=== PATIENT | male | born 1945 | race Caucasian/White ===

== ENCOUNTER 2018-07-03 22:41 | Emergency (ER) | payer MEDICARE, OTHER ==
[~2018-07-03] VITALS: Ht 160 cm; Wt 74.6 kg
[~2018-07-03 22:41] MED LIST: CEPH-443 PO; DOXA4TAB PO; LEVO150T7 PO; POLY10DR19 RIGHT EYE; [UNRECOGNIZED DRUG - CODE] PO; [UNRECOGNIZED DRUG - CODE] PO
[2018-07-03 22:49] VITALS: Ht 160 cm; Wt 74.6 kg
[2018-07-04] MEDS ORDERED: morphine 4 MG/ML VIAL IV STA (01:02)
[2018-07-04] MEDS ORDERED: ONDANSETRON 4 MG INJ IV STA (01:02)
[2018-07-04] MEDS ORDERED: ONDA4TAB14 PO (02:21)
--- NOTE | 2018-07-04 02:22 | ERD ---
ER Documentation Chief Complaint Chief Complaint gen body aches & burning sensation all over; hx seizures HPI Patient is a 72-year-old male with seizures and high cholesterol who presents with abdominal pain. He has had 2 days of abdominal pain and yesterday started with back pain. He went to the [facility] emergency department yesterday. He had a CT scan done which showed no significant surgical process. Per day the patient felt worse so came to the ER. He was having chest burning as well. He has had decreased intake by mouth. Upon review of old medical records this is the patient's fifth visit to the ER since 2010. Review of the emergency department information exchange system shows visits to 3 separate [facility] departments. He does have a primary doctor. ROS All systems reviewed and are negative except as per history of present illness. Medications Home Meds Active Scripts Ondansetron (Ondansetron Odt) 4 Mg Tab.rapdis, 4 MG PO Q6H PRN for NAUSEA AND/OR VOMITING, #10 TAB Prov:REBECCA BRITTON MD 07/04/18 Polymyxin B Sulfate-TMP* (Polymyxin B-TMP Eye Drops*) 10 Ml Drops, 1 DROP RIGHT EYE QID for 7 Days, EA Prov:KATHERINE LEYVA PA-C 01/27/16 Cephalexin* (Keflex*) 500 Mg Capsule, 500 MG PO QID for 7 Days, CAP Prov:KATHERINE LEYVA PA-C 01/27/16 Reported Medications Doxazosin* (CARDURA*) 4 Mg Tablet, 4 MG PO AM 01/09/11 Sulfamethoxazole/Trimethoprim (Smz-Tmp Ds 800-160 Mg Tablet) 1 Tab Tablet, 1 TAB PO AM 01/09/11 Levothyroxine Sodium* (Levothyroxine Sodium*) 150 Mcg Tablet, 150 MCG PO AM 01/09/11 Phenytoin (Phenytoin) 100 Mg/4 Ml Oral.susp, 100 MG PO TID 01/09/11 Allergies Allergies: Coded Allergies: No Known Allergies (Verified Allergy, Unknown, 07/09/13) PMhx/Soc History of Surgery: Yes (PREVIOUS HYDROCELE REPAIR) Anesthesia Reaction: No Hx Neurological Disorder: Yes (SEIZURES) Hx Respiratory Disorders: No Hx Cardiac Disorders: No Hx Psychiatric Problems: No Hx Miscellaneous Medical Probl: Yes (BPH) Hx Alcohol Use: No Hx Substance Use: No Hx Tobacco Use: No Sm[facility] History: diabetes Physical Exam Vitals Vital Signs Date Temp Pulse Resp B/P (MAP) Pulse Ox O2 O2 Flow FiO2 Time Delivery Rate 07/04/18 98.0 66 16 147/76 98 Room Air 02:45 (99) 07/04/18 68 15 138/74 95 Room Air 01:00 (95) 07/03/18 98.6 63 20 135/70 98 22:49 (91) Physical Exam Const: No acute distress Head: Atraumatic Eyes: Normal Conjunctiva ENT: Normal External Ears, Nose and Mouth. Neck: Full range of motion. No meningismus. Resp: Clear to auscultation bilaterally Cardio: Regular rate and rhythm, no murmurs Abd: Soft, diffuse tenderness to palpation without rebound or guarding Skin: No petechiae or rashes Back: No midline or flank tenderness Ext: No cyanosis, or edema Neur: Awake and alert Psych: Normal Mood and Affect Result Diagram: 07/04/18 0110 07/04/18 0110 Results 24 hrs Laboratory Tests Test 07/04/18 01:10 07/04/18 01:15 White Blood Count 7.7 10^3/ul Red Blood Count 4.44 10^6/ul Hemoglobin 14.0 g/dl Hematocrit 38.6 % Mean Corpuscular Volume 86.9 fl Mean Corpuscular Hemoglobin 31.5 pg Mean Corpuscular Hemoglobin Concent 36.3 g/dl Red Cell Distribution Width 11.4 % Platelet Count 161 10^3/UL Mean Platelet Volume 10.6 fl Immature Granulocytes % 0.400 % Neutrophils % 59.3 % Lymphocytes % 29.7 % Monocytes % 9.7 % Eosinophils % 0.6 % Basophils % 0.3 % Nucleated Red Blood Cells % 0.0 /100WBC Immature Granulocytes # 0.030 10^3/ul Neutrophils # 4.6 10^3/ul Lymphocytes # 2.3 10^3/ul Monocytes # 0.8 10^3/ul Eosinophils # 0.1 10^3/ul Basophils # 0.0 10^3/ul Nucleated Red Blood Cells # 0.0 10^3/ul Sodium Level 124 mmol/L Potassium Level 4.0 mmol/L Chloride Level 86 mmol/L Carbon Dioxide Level 23 mmol/L Anion Gap 15 Blood Urea Nitrogen 6 mg/dl Creatinine 0.46 mg/dl Est Glomerular Filtrat Rate mL/min mL/min Glucose Level 104 mg/dl Calcium Level 8.7 mg/dl Total Bilirubin 0.4 mg/dl Direct Bilirubin 0.00 mg/dl Indirect Bilirubin 0.4 mg/dl Aspartate Amino Transf (AST/SGOT) 19 IU/L Alanine Aminotransferase (ALT/SGPT) 23 IU/L Alkaline Phosphatase 73 IU/L Troponin I < 0.012 ng/ml Total Protein 8.1 g/dl Albumin 4.4 g/dl Globulin 3.70 g/dl Albumin/Globulin Ratio 1.18 Lipase 46 U/L Urine Color YELLOW Urine Clarity CLEAR Urine pH 6.0 Urine Specific [place] 1.017 Urine Ketones 2+ mg/dL Urine Nitrite NEGATIVE mg/dL Urine Bilirubin NEGATIVE mg/dL Urine Urobilinogen NEGATIVE mg/dL Urine Leukocyte Esterase NEGATIVE Sammi/ul Urine Microscopic RBC 3 /HPF Urine Microscopic WBC 1 /HPF Urine Hemoglobin 1+ mg/dL Urine Glucose NEGATIVE mg/dL Urine Total Protein NEGATIVE mg/dl Current Medications Medications Dose Sig/Mari Start Time Status Last (Trade) Ordered Route PRN Stop Time Admin Dose Reason Admin Morphine 4 mg ONCE STAT 07/04/18 DC 07/04/18 Sulfate IV 01:02 07/04/18 01:54 (morphine) 01:03 Ondansetron 4 mg ONCE STAT 07/04/18 DC 07/04/18 HCl (Zofran IV 01:02 07/04/18 01:54 Inj) 01:03 Procedures/MDM EKG read by me: Rate/Rhythm: Regular rate and rhythm at a rate of 66 Intervals: Normal Impression: No evidence of ischemia or arrhythmia Ultrasound read by radiology. Patient is a 72-year-old male who presents with abdominal pain. The patient has a history of visits to other emergency departments for abdominal pain as well. Ultrasound showed gallstones and possible acute cholecystitis but his clinical exam does not fit the picture of acute cholecystitis and his white blood cell count is normal. I do not believe the patient has acute cholecystitis I believe he has aortic colic. I doubt pancreatitis, appendicitis, or bowel obstruction. The patient is well-appearing and wanted to eat prior to discharge. The patient was given copies of laboratory studies and imaging test prior to discharge and will be given information for Dr. Kahn from general surgery to follow-up within 24-48 hours. He would likely benefit from elective cholecystectomy. I do not believe he requires admission to the hospital at this time. Departure Diagnosis: Primary Impression: Biliary colic Condition: Fair Patient Instructions: Biliary Colic With Gallstone (Confirmed) Referrals: VAISHNAVI KAHN MD Additional Instructions: Specialist:Usted tiene fernando condicin mdica que requiere que zulay a un especialista dentro de los prximos 1-2 tran.POR FAVOR,CON VINES SEGUIMIENTO DE PRIMARIA PHSICIAN refferal. SI USTED NO TIENE UN MDICO GENERAL Y / O USTED NO PUEDE PAGAR grabiel a un mdico,los siguientes coulter RECURSOS sido suministrado a usted. ES VINES RESPONSABILIDAD PARA SER VISTOS POR EL ESPECIALISTA: REBECCA BRITTON MD Jul 04, 2018 02:22
[2018-07-04 02:45] VITALS: BP 147/76; PULSE 66; RESP 16
[2018-07-05] MEDS ORDERED: GEMF600T4 PO (10:16)
== END 2018-07-04 02:45 | disposition home or self-care (01) ==
LOC: E/R 22:41
DX: K80.50 Calculus of bile duct without cholangitis or cholecystitis without obstruction (principal); R10.9 Unspecified abdominal pain
CPT/HCPCS: 36415; 71045; 76705; 80053; 81001; 83690; 84484; 85025; 93005; 96374; 96375; 99285; J2270; J2405

== ENCOUNTER 2018-07-05 09:03 | Inpatient (IN) | payer MEDICARE, OTHER ==
[~2018-07-05] VITALS: Ht 167.6 cm; Wt 75.5 kg
[~2018-07-05 09:03] MED LIST changes: +ONDA4TAB14 PO
[2018-07-05] MEDS ORDERED: ACETAMINOPHEN 325 MG TAB PO PRN (10:00)
[2018-07-05] MEDS ORDERED: ONDANSETRON 4 MG INJ IV PRN ×2 (10:00→11:00)
[2018-07-05] MEDS ORDERED: ONDANSETRON 4 MG INJ IV STA (10:15)
[2018-07-05] MEDS ORDERED: morphine 4 MG/ML VIAL IV STA (10:15)
[2018-07-05] MEDS ORDERED: GEMF600T8 PO (10:16)
[2018-07-05] MEDS ORDERED: morphine 2 MG INJ IV PRN (11:00)
[2018-07-05] MEDS ORDERED: NACL 0.9% 3 ML SYG IV SCH (11:00)
[2018-07-05 11:10] VITALS: BP 130/62; PULSE 62; RESP 16
[2018-07-05] MEDS: SOD CHLORIDE 0.9% 1,000 ML IV SCH (11:13)
[2018-07-05 11:26] VITALS: Ht 167.6 cm; Wt 75.5 kg
--- NOTE | 2018-07-05 12:05 | HP ---
Date/Time of Note Date/Time of Note DATE: 07/05/18 TIME: 12:05 Assessment/Plan VTE Prophylaxis SCD contraindicated: other Pharmacological prophylaxis: other Lines/Catheters IV [facility]ter Type (from [facility]): Peripheral IV Assessment/Plan Hospital Course 72-year-old male with comorbidities including prostate hypertrophy, hypothyroidism, seizure disorder, and dyslipidemia who came to the emergency room with chief complaint of abdominal pain was found to have evidence of cholelithiasis and hyponatremia who was admitted inpatient setting for further treatment and evaluation. 1. Acute abdominal pain. -Most probably secondary to underlying cholelithiasis -Continue pain control. -Continue n.p.o. except for medications. -General surgery consult has been obtained -Obtain HIDA scan to check for any cholecystitis. -Will hold antimicrobials since the patient is afebrile and does not have any leukocytosis. 2. Symptomatic cholelithiasis -Management as per #1. 3. Hyponatremia. -Less likely primary polydipsia. -Other causes include low dietary fluid intake, hypovolemia, SIADH, etc. -Correct sodium levels gradually. 4. Seizure disorder. -Resume phenytoin. -Dilantin level very low. Will give a loading dose at 15 mg/kg 5. Hypothyroidism. -Will continue Synthroid. 6. Dyslipidemia. -Continue fibrates. Plan: The patient will be admitted to inpatient setting. The patient will be kept n.p.o. except for medications. The patient will be started on DVT prophylaxis . The patient will remain a full code. Activities will be as tolerated. The rest of the patient's management will be based on the clinical course, inputs from consultants, and the results of diagnostic studies. The patient was seen in collaboration with Dr. Montejo. Result Diagram: 07/05/18 1030 07/05/18 1030 Results 24hrs Laboratory Tests Test 07/05/18 10:30 White Blood Count 6.5 Red Blood Count 4.60 L Hemoglobin 14.3 Hematocrit 38.9 L Mean Corpuscular Volume 84.6 Mean Corpuscular Hemoglobin 31.1 Mean Corpuscular Hemoglobin Concent 36.8 Red Cell Distribution Width 11.4 L Platelet Count 168 Mean Platelet Volume 10.9 H Immature Granulocytes % 0.800 H Neutrophils % 64.9 Lymphocytes % 22.2 Monocytes % 11.4 H Eosinophils % 0.5 Basophils % 0.2 Nucleated Red Blood Cells % 0.0 Immature Granulocytes # 0.050 H Neutrophils # 4.2 Lymphocytes # 1.4 Monocytes # 0.7 Eosinophils # 0.0 Basophils # 0.0 Nucleated Red Blood Cells # 0.0 Urine Color YELLOW Urine Clarity CLEAR Urine pH 6.0 Urine Specific [place] 1.015 Urine Ketones 2+ H Urine Nitrite NEGATIVE Urine Bilirubin NEGATIVE Urine Urobilinogen 1+ H Urine Leukocyte Esterase NEGATIVE Urine Microscopic RBC 2 Urine Microscopic WBC 0 Urine Hemoglobin 1+ H Urine Random Sodium 72 Urine Glucose NEGATIVE Urine Total Protein NEGATIVE Sodium Level 122 L Potassium Level 3.8 Chloride Level 85 L Carbon Dioxide Level 22 Anion Gap 15 H Blood Urea Nitrogen 5 L Creatinine 0.48 L Est Glomerular Filtrat Rate mL/min Glucose Level 108 Calcium Level 8.7 Total Bilirubin 0.3 Direct Bilirubin 0.00 Indirect Bilirubin 0.3 Aspartate Amino Transf (AST/SGOT) 32 # Alanine Aminotransferase (ALT/SGPT) 39 Alkaline Phosphatase 78 Troponin I < 0.012 Total Protein 7.9 Albumin 4.3 Globulin 3.60 H Albumin/Globulin Ratio 1.19 Lipase 60 Phenytoin (Dilantin) Level < 3.0 L HPI/ROS Admit Date/Time Admit Date/Time Jul 05, 2018 at 09:55 Hx of Present Illness Reason for admission: Abdominal pain. Consultants 1. Tevin Kahn MD, General surgery. This is a 72-year-old male with comorbidities including dyslipidemia, seizure disorder, hypothyroidism, and prostatic hypertrophy, who came to the emergency room because of abdominal. The patient was seen at [facility] emergency room on 07/03/2018 because of same complaints and was discharged home. The patient returned back this time with epigastric pain with radiation to the back. The patient also verbalized 2 episodes of bilious vomiting. There was no reported fevers. There was no reported diarrhea. In the emergency room, the patient's LFTs were within normal limits. The patient's gallbladder ultrasound that was done on 07/04/2018 was showing mildly distended gallbladder containing multiple stones with sonographic Vital's sign. The patient was treated with IV pain medications and IV antiemetics in the emergency room. ROS Constitutional: poor po Eyes: no complaints ENT: no complaints Respiratory: no complaints Cardiovascular: no complaints Gastrointestinal: pain, nausea, vomiting Genitourinary: no complaints Musculoskeletal: back pain Skin: no complaints Neurologic: no complaints Endocrine: no complaints Lymphatic: no complaints Psychological: no complaints Immunologic: no complaints PMH/Family/Social Past Medical History Medical History: high cholesterol, hypertension, hypothyroid, other (Prostate hypertrophy) Medications Current Medications Ondansetron HCl (Zofran Inj) 4 mg BRIDGE ORDER PRN IV NAUSEA AND/OR VOMITING; Start 07/05/18 at 10:00; Stop 07/06/18 at 09:59 Acetaminophen (Tylenol Tab) 650 mg ER BRIDGE PRN PO MILD PAIN(1-3)OR ELEVATED TEMP; Start 07/05/18 at 10:00; Stop 07/06/18 at 09:59 IV Flush (NS 3 ml) 3 ml PER PROTOCOL IV ; Start 07/05/18 at 11:00 Ondansetron HCl (Zofran Inj) 4 mg Q6H PRN IV NAUSEA AND/OR VOMITING; Start 07/05/18 at 11:00 Acetaminophen/ Hydrocodone Bitart ([employer] (5/325)) 1 tab Q6H PRN PO MODERATE PAIN LEVEL 4-6; Start 07/05/18 at 11:00 Morphine Sulfate (morphine) 2 mg Q4H PRN IV SEVERE PAIN LEVEL 7-10; Start 07/05/18 at 11:00 Sodium Chloride 1,000 ml @ 75 mls/hr [id number] IV Last administered on 07/05/18at 11:13; Admin Dose 75 MLS/HR; Start 07/05/18 at 11:00 Coded Allergies: No Known Allergies (Verified Allergy, Unknown, 07/09/13) Past Surgical History Past Surgical Hx: other (Prostate surgery) Social History Alcohol Use: none Smoking Status: Never smoker Drug Use: none Exam/Review of Systems Vital Signs Vitals Vital Signs Date Temp Pulse Resp B/P (MAP) Pulse Ox O2 O2 Flow FiO2 Time Delivery Rate 07/05/18 98.5 62 16 130/62 96 11:10 (84) 07/05/18 Room Air 10:41 Exam Exam General: Adequately build 72 year-old male lying in bed in no apparent distress. HEENT: Normocephalic, atraumatic. Eyes: Anicteric sclerae, conjunctivae clear. ENT: Nasal septum midline, oral mucosa moist. Neck supple. Respiratory: Bilaterally clear breath sounds. No use of accessory muscles of re spiration. No adventitious breath sounds. Cardiovascular: S1, S2 heard. Regular rate and rhythm. Abdomen: Soft, nontender, and nondistended. Bowel sounds positive in all 4 quadrants. Genitourinary: Deferred. Extremities: No cyanosis, no clubbing, no edema. Peripheral pulses palpable. Neurologic: Cranial nerves II through XII grossly intact. The patient is awake, alert, and oriented. Skin: Normal skin turgor. No skin rashes. Additional Comments CXR IMPRESSION: 1. No radiographic evidence of acute cardiopulmonary disease. No significant interval change. 2. 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 THERESE LEROY NP Jul 05, 2018 12:05
--- NOTE | 2018-07-05 13:11 | ERD ---
ER Documentation Chief Complaint Chief Complaint Complains of back pain x1 week HPI Patient is a 72-year-old male with seizures who presents with abdominal pain and back pain. He said that he could not sleep last night. He had nausea and vomiting as well. He tried Tylenol. He does have a primary doctor. He was seen in the emergency department on July 03 and was diagnosed with biliary colic. He was discharged at that time but has continued to have pain. ROS All systems reviewed and are negative except as per history of present illness. Medications Home Meds Reported Medications Gemfibrozil* (Gemfibrozil*) 600 Mg Tablet, 600 MG PO BID, TAB 07/05/18 Levothyroxine Sodium* (Levothyroxine Sodium*) 150 Mcg Tablet, 150 MCG PO AC BREAKFAST 01/09/11 Phenytoin (Phenytoin) 100 Mg/4 Ml Oral.susp, 100 MG PO TID 01/09/11 Discontinued Reported Medications Doxazosin* (CARDURA*) 4 Mg Tablet, 4 MG PO AM 01/09/11 Sulfamethoxazole/Trimethoprim (Smz-Tmp Ds 800-160 Mg Tablet) 1 Tab Tablet, 1 TAB PO AM 01/09/11 Discontinued Scripts Ondansetron (Ondansetron Odt) 4 Mg Tab.rapdis, 4 MG PO Q6H PRN for NAUSEA AND/OR VOMITING, #10 TAB Prov:REBECCA BRITTON MD 07/04/18 Polymyxin B Sulfate-TMP* (Polymyxin B-TMP Eye Drops*) 10 Ml Drops, 1 DROP RIGHT EYE QID for 7 Days, EA Prov:KATHERINE LEYVA PA-C 01/27/16 Cephalexin* (Keflex*) 500 Mg Capsule, 500 MG PO QID for 7 Days, CAP Prov:KATHERINE LEYVA PA-C 01/27/16 Allergies Allergies: Coded Allergies: No Known Allergies (Verified Allergy, Unknown, 07/09/13) PMhx/Soc History of Surgery: Yes (surgery for prostate 2 years ago) Anesthesia Reaction: No Hx Neurological Disorder: Yes (seizures--last one one year ago) Hx Respiratory Disorders: No Hx Cardiac Disorders: No Hx Psychiatric Problems: No Hx Miscellaneous Medical Probl: No Hx Alcohol Use: No Hx Substance Use: No Hx Tobacco Use: No Smoking Status: Never smoker FmHx Family History: No diabetes Physical Exam Vitals Vital Signs Date Temp Pulse Resp B/P (MAP) Pulse Ox O2 O2 Flow FiO2 Time Delivery Rate 07/05/18 98.8 72 20 148/70 96 09:05 (96) Physical Exam Const: No acute distress Head: Atraumatic Eyes: Normal Conjunctiva ENT: Normal External Ears, Nose and Mouth. Neck: Full range of motion. No meningismus. Resp: Clear to auscultation bilaterally Cardio: Regular rate and rhythm, no murmurs Abd: Soft, epigastric tenderness to palpation without rebound or guarding Skin: No petechiae or rashes Back: No midline or flank tenderness Ext: No cyanosis, or edema Neur: Awake and alert Psych: Normal Mood and Affect Result Diagram: 07/05/18 1030 07/05/18 1030 Procedures/MDM EKG read by me: Rate/Rhythm: Regular rate and rhythm at a normal rate Intervals: Normal Impression: No evidence of ischemia or arrhythmia Chest x-ray read by radiology. Ultrasound of the gallbladder done 2 days ago read by radiology. Patient is a 72-year-old male with seizures who presents with epigastric and back pain. I am concerned for possible acute cholecystitis as patient has had continued pain. The patient will be admitted to the panel team. Dr. Kahn from general surgery is consulted. The patient may require a HIDA scan to determine if this is true cholecystitis or not. LFTs and lipase are basically normal. The patient was given morphine and Zofran for pain. Departure Diagnosis: Primary Impression: Abdominal pain Abdominal location: epigastric Qualified Codes: R10.13 - Epigastric pain Condition: REBECCA Moore MD Jul 05, 2018 13:11
--- NOTE | 2018-07-05 13:18 | CONS ---
Date/Time of Note Date/Time of Note DATE: 07/05/18 TIME: 12:50 Assessment/Plan Assessment/Plan Assessment/Plan 1. Left mid abdominal pain: 2/2 symptomatic cholelithiasis versus other -HIDA scan pending -CT abdomen -Pain management 2. Cholelithiasis: -As above 3.Hyponatremia -Judicious fluid correction 4. Seizure disorder: -Med management 5. High cholesterol -Med management 6. Hypothyroidism: -Med management Thank you. Patient seen and examined in collaboration with Dr. Tevin Kahn. Result Diagram: 07/05/18 1030 07/05/18 1030 Results 24hrs Laboratory Tests Test 07/05/18 10:30 White Blood Count 6.5 Red Blood Count 4.60 L Hemoglobin 14.3 Hematocrit 38.9 L Mean Corpuscular Volume 84.6 Mean Corpuscular Hemoglobin 31.1 Mean Corpuscular Hemoglobin Concent 36.8 Red Cell Distribution Width 11.4 L Platelet Count 168 Mean Platelet Volume 10.9 H Immature Granulocytes % 0.800 H Neutrophils % 64.9 Lymphocytes % 22.2 Monocytes % 11.4 H Eosinophils % 0.5 Basophils % 0.2 Nucleated Red Blood Cells % 0.0 Immature Granulocytes # 0.050 H Neutrophils # 4.2 Lymphocytes # 1.4 Monocytes # 0.7 Eosinophils # 0.0 Basophils # 0.0 Nucleated Red Blood Cells # 0.0 Urine Color YELLOW Urine Clarity CLEAR Urine pH 6.0 Urine Specific [place] 1.015 Urine Ketones 2+ H Urine Nitrite NEGATIVE Urine Bilirubin NEGATIVE Urine Urobilinogen 1+ H Urine Leukocyte Esterase NEGATIVE Urine Microscopic RBC 2 Urine Microscopic WBC 0 Urine Hemoglobin 1+ H Urine Random Creatinine 107.74 Urine Random Sodium 72 Urine Glucose NEGATIVE Urine Total Protein NEGATIVE Sodium Level 122 L Potassium Level 3.8 Chloride Level 85 L Carbon Dioxide Level 22 Anion Gap 15 H Blood Urea Nitrogen 5 L Creatinine 0.48 L Est Glomerular Filtrat Rate mL/min Glucose Level 108 Calcium Level 8.7 Total Bilirubin 0.3 Direct Bilirubin 0.00 Indirect Bilirubin 0.3 Aspartate Amino Transf (AST/SGOT) 32 # Alanine Aminotransferase (ALT/SGPT) 39 Alkaline Phosphatase 78 Troponin I < 0.012 Total Protein 7.9 Albumin 4.3 Globulin 3.60 H Albumin/Globulin Ratio 1.19 Lipase 60 Free Thyroxine 1.36 Phenytoin (Dilantin) Level < 3.0 L Consultation Date/Type/Reason Admit Date/Time Jul 05, 2018 at 09:55 Hx of Present Illness Vernon Mota is a 72-year-old man with past medical history of seizure disorder, hypothyroidism, high cholesterol who presents to the emergency room with complaints of abdominal pain. Abdominal pain is predominantly in the mid left abdomen strong and persistent in nature. He also reports abdominal pain wi th food. Notably, he presented to the ED yesterday with similar complaints. An ultrasound was performed yesterday showing mildly distended gallbladder containing multiple small stones without pericholecystic fluid. He was subsequently sent home with instructions to follow-up with our service as o utpatient. Unfortunately his pain persisted and he returned to the ED for further evaluation. He denies fevers, chills, congested cough chest pain, palpitations, nausea, vomiting, seizures, rash, skin or scleral changes. Laboratory findings were remarkable for hyponatremia. General surgery was asked to evaluate. 12 point review of systems was performed and is negative except for stated in HPI. Past Medical History As above Medications Current Medications Ondansetron HCl (Zofran Inj) 4 mg BRIDGE ORDER PRN IV NAUSEA AND/OR VOMITING; Start 07/05/18 at 10:00; Stop 07/06/18 at 09:59 Acetaminophen (Tylenol Tab) 650 mg ER BRIDGE PRN PO MILD PAIN(1-3)OR ELEVATED TEMP; Start 07/05/18 at 10:00; Stop 07/06/18 at 09:59 IV Flush (NS 3 ml) 3 ml PER PROTOCOL IV ; Start 07/05/18 at 11:00 Ondansetron HCl (Zofran Inj) 4 mg Q6H PRN IV NAUSEA AND/OR VOMITING; Start 07/05/18 at 11:00 Acetaminophen/ Hydrocodone Bitart ([employer] (5/325)) 1 tab Q6H PRN PO MODERATE PAIN LEVEL 4-6; Start 07/05/18 at 11:00 Morphine Sulfate (morphine) 2 mg Q4H PRN IV SEVERE PAIN LEVEL 7-10; Start 07/05/18 at 11:00 Sodium Chloride 1,000 ml @ 75 mls/hr [id number] IV Last administered on 07/05/18at 11:13; Admin Dose 75 MLS/HR; Start 07/05/18 at 11:00 Phenytoin (Dilantin) 100 mg Q8 IV ; Start 07/05/18 at 22:00 Phenytoin 1250 mg/ Sodium Chloride 175 ml @ 175 mls/hr ONCE ONCE IV ; Start 07/05/18 at 13:30; Stop 07/05/18 at 14:29 Allergies: Coded Allergies: No Known Allergies (Verified Allergy, Unknown, 07/09/13) Past Surgical History Left scrotal hydrocele excision Family History Significant Family History: no pertinent family hx Social History Smoking Status: Never smoker Exam/Review of Systems Vital Signs Vitals Vital Signs Date Temp Pulse Resp B/P (MAP) Pulse Ox O2 O2 Flow FiO2 Time Delivery Rate 07/05/18 98.5 62 16 130/62 96 11:10 (84) 07/05/18 Room Air 10:41 Exam Constitutional: alert, oriented Psych: nl mood/affect; No anxiety Head: normocephalic, atraumatic Eyes: nl conjunctiva, EOMI, nl sclera ENMT: nl external ears & nose, nl lips & teeth, mucosa pink and moist Neck: supple, non-tender; No jvd Respiratory: normal air movement; No congested cough Cardiovascular: regular rate and rhythm, nl pulses Gastrointestinal: soft, tender (Left mid abdomen) Musculoskeletal: nl extremities to inspection, nl gait and stance Extremities: normal pulses Neurological: nl mental status, nl speech, nl strength Skin: No rash or lesions Medications Medications Current Medications Ondansetron HCl (Zofran Inj) 4 mg BRIDGE ORDER PRN IV NAUSEA AND/OR VOMITING; Start 07/05/18 at 10:00; Stop 07/06/18 at 09:59 Acetaminophen (Tylenol Tab) 650 mg ER BRIDGE PRN PO MILD PAIN(1-3)OR ELEVATED TEMP; Start 07/05/18 at 10:00; Stop 07/06/18 at 09:59 IV Flush (NS 3 ml) 3 ml PER PROTOCOL IV ; Start 07/05/18 at 11:00 Ondansetron HCl (Zofran Inj) 4 mg Q6H PRN IV NAUSEA AND/OR VOMITING; Start 07/05/18 at 11:00 Acetaminophen/ Hydrocodone Bitart ([employer] (5/325)) 1 tab Q6H PRN PO MODERATE PAIN LEVEL 4-6; Start 07/05/18 at 11:00 Morphine Sulfate (morphine) 2 mg Q4H PRN IV SEVERE PAIN LEVEL 7-10; Start 07/05/18 at 11:00 Sodium Chloride 1,000 ml @ 75 mls/hr [id number] IV Last administered on 07/05/18at 11:13; Admin Dose 75 MLS/HR; Start 07/05/18 at 11:00 Phenytoin (Dilantin) 100 mg Q8 IV ; Start 07/05/18 at 22:00 Phenytoin 1250 mg/ Sodium Chloride 175 ml @ 175 mls/hr ONCE ONCE IV ; Start 07/05/18 at 13:30; Stop 07/05/18 at 14:29 AIDEN EVANS NP Jul 05, 2018 13:12
[2018-07-05] MEDS ORDERED: PHENYTOIN 1,250 MG in SOD CHLORIDE 0.9% 150 ML IV ONE (13:30)
[2018-07-05 14:21] VITALS: BP 128/72; PULSE 63; RESP 16
[2018-07-05] MEDS ORDERED: IOHEXOL 14.3 MG(I)/ML (ADULT) BTL PO ONE (14:30)
[2018-07-05] MEDS ORDERED: morphine SULFATE/PF (2 MG/2 ML) SYG IV PRN (17:30)
--- NOTE | 2018-07-05 18:42 | CONS ---
DATE OF ADMISSION: 07/05/2018 DATE OF CONSULTATION: 07/05/2018 TYPE OF CONSULTATION: Nephrology. REASON FOR CONSULTATION: Hyponatremia. PHYSICIAN REQUESTING CONSULT: Amor Reyes NP HISTORY OF PRESENT ILLNESS: This is a 72-year-old male with a past medical history of dyslipidemia, history of seizure disorder, history of BPH, who presented to [facility] Emergency Room arin use of abdominal pain. The patient's symptoms started approximately 24 hours prior to admission. Th e patient is having symptoms of nausea, vomiting. He was tried Tylenol without improvement. As a re sult, he came into the emergency room for evaluation. Upon arrival, the patient had abdominal ultras ound which showed a mildly distended gallbladder containing multiple stones with positive Vital sign . The patient was given antiemetics, IV pain medications and admitted to med-surg. In terms of the patient's sodium history, the patient on admission was noted to have a sodium level o f 122 mEq per liter. The patient does admit to drinking copious amounts of water approximately 3 to 4 liters daily. The patient also has poor oral intake. The patient's sodium level during the hospit al course has remained stable at 122 mEq per liter in the course of 4 to 6 hours. There is no report of any seizure. The patient does admit to having some mild confusion. The patient does take Dilant in at home. Denies any NSAID use. PAST MEDICAL HISTORY: History of seizure disorder, history hypothyroidism, history of BPH. ALLERGIES: NO KNOWN DRUG ALLERGIES. PAST SURGICAL HISTORY: Status post prostate surgery. FAMILY HISTORY: No family history of kidney disease. SOCIAL HISTORY: Does not drink, smoke or do drugs. MEDICATIONS: Have been reviewed. REVIEW OF SYSTEMS: A 14-point review of systems was conducted. Pertinent positives stated in HPI, o therwise negative. PHYSICAL EXAMINATION: VITAL SIGNS: Blood pressure is 128/72, respiration 16, pulse 63, temperature 98.5. HEENT: Head is normocephalic. NECK: Supple. HEART: Regular rate. LUNGS: Show diminished breath sounds at the base. ABDOMEN: Soft, nontender to palpation without rebound or guarding. EXTREMITIES: Negative for clubbing, cyanosis. No edema. DERMATOLOGIC: No rashes. MUSCULOSKELETAL: No joint effusion. NEUROLOGIC: No focal deficits. LABORATORY DATA: Show sodium 122, potassium 3.8, chloride 85, BUN 5, creatinine 0.48. Serum osmolal ity is 243. White count 6.5, hemoglobin 14.3, platelet count is 168. Urinalysis shows a urine osmol ality of 467, urine sodium of 72. IMAGING STUDIES: Have been reviewed. The patient's HIDA scan shows no visualization of the gallblad cassia, no evidence of common bile duct obstruction. ASSESSMENT AND PLAN: 1. This is a 72-year-old male who presents with hyponatremia, possibly acute versus subacute/chronic . Etiology is likely secondary to syndrome of inappropriate antidiuretic hormone possibly from pain. The patient's urine studies are consistent with syndrome of inappropriate antidiuretic hormone give n elevated urine osmolality and an elevated urine sodium. The patient's sodium levels are currently 122 mEq per liter. The patient has no obvious confusion. No seizure activity noted. Plan at this p oint is to place the patient on a free water restriction, no more than 800 mL intake daily. The briana ent will be placed on a high osmolar diet. We will monitor I's and O's closely. We will monitor ser ial sodium levels closely. If sodium levels continued to decline, we would consider starting the pat ient 3% sodium chloride. We will also consider starting the patient on demeclocycline and/or salt ta blets. 2. Acute abdominal pain, possible acute cholecystitis. The patient's CT scan and HIDA scan are pend ing. Continue treatment. Continue pain control and monitor closely. 3. Cholelithiasis as stated above possibly contributing to acute cholecystitis, biliary colic. Cont inue medical management. 4. Seizure disorder. Continue medical management. 5. Dyslipidemia. Continue medical management. 6. Hypothyroidism. We will check TSH level. Continue Synthroid. Thank you Sheldon for this interesting consult. It will be a pleasure to follow patient with you thr oughout the hospital course. Dictated By: MICHAEL TROY DO NR/NTS Conf#: [id number] DID#: [id number] CC: VAISHNAVI MARSH MD; OLIVE MCKEON MD;*EndCC*
[2018-07-05 20:00] VITALS: BP 133/68; PULSE 68; RESP 18
[2018-07-05] MEDS: PHENYTOIN 100 MG INJ IV SCH (21:44)
[2018-07-05] MEDS: HYDROCODONE/APAP (5/325) TAB PO PRN (21:54)
[2018-07-06] VITALS (25 sets, daily range): BP systolic 92–149; BP diastolic 59–76; PULSE 65–86; RESP 10–38
[2018-07-06] MEDS: SOD CHLORIDE 0.9% 1,000 ML IV SCH ×2 (04:30→06:36)
[2018-07-06] MEDS: PHENYTOIN 100 MG INJ IV SCH ×3 (05:15→21:17)
[2018-07-06] MEDS ORDERED: DESFLURANE 15 MIN ONE (07:00)
--- NOTE | 2018-07-06 09:07 | PN ---
DATE: 07/06/2018 SUBJECTIVE: The patient remains n.p.o. The patient's sodium levels have improved with a course of I V hydration. No other acute events noted. No hemoptysis, hematemesis or hematochezia. OBJECTIVE: VITAL SIGNS: Blood pressure is 149/76, respiration 18, pulse 73, temperature 98.2. HEENT: Head is normocephalic. NECK: Supple. HEART: Regular rate. LUNGS: Show diminished breath sounds at the base. ABDOMEN: Soft, nontender to palpation. No rebound or guarding. EXTREMITIES: Negative for clubbing, cyanosis, no edema. DERMATOLOGIC: No rashes. MUSCULOSKELETAL: No joint effusion. NEUROLOGIC: No change in exam. MEDICATIONS: Reviewed. LABORATORY DATA: Shows sodium 130, potassium 4.0, chloride 91, BUN 5, creatinine 0.49. White count 7.4, hemoglobin 14.2, platelet count is 161. IMAGING STUDIES: The patient's imaging studies have been reviewed. ASSESSMENT AND PLAN: 1. Hyponatremia, possibly acute versus subacute/chronic. Etiology is felt to be secondary to syndro me of inappropriate antidiuretic hormone, likely from pain given the patient's elevated urine osmolar ity and urine sodium levels. The patient's sodium levels, however, have improved approximately 8 mEq in a 24-hour period with IV hydration. This suggests either a concomitant volume depletion or a pos sibility of resolution of SIADH as the patient's pain has been controlled. At this point, will deesc alate IV fluids. Continue to monitor serial sodium levels to ensure correction of no more than 18 mE q in a 40-hour period. Will continue to monitor closely. 2. Acute abdominal pain, improving. The patient may have underlying acute cholecystitis. Continue to monitor. Follow up with surgery. 3. Seizure disorder. Continue medical management. 4. Dyslipidemia. Continue medical management. 5. Hypothyroidism. Continue Synthroid. Dictated By: MICHAEL TROY DO NR/NTS Conf#: [id number] DID#: [id number] CC: JOSHUA MARSH DO; OLIVE MCKEON MD;*End*
--- NOTE | 2018-07-06 10:23 | PN ---
Date/Time of Note Date/Time of Note DATE: 07/06/18 TIME: 10:18 Assessment/Plan VTE Prophylaxis Risk score (from Ns)>0 risk: 2 SCD applied (from Ns): Yes Pharmacological prophylaxis: other Lines/Catheters IV C[facility]ter Type (from [facility]): Peripheral IV Assessment/Plan Hospital Course SUBJECTIVE: Denies any abdominal pain today. Denies any nausea. OBJECTIVE: Physical Exam General: Adequately build 72 year-old male lying in bed in no apparent distress. HEENT: Normocephalic, atraumatic. Eyes: Anicteric sclerae, conjunctivae clear. ENT: Nasal septum midline, oral mucosa moist. Neck supple. Respiratory: Bilaterally clear breath sounds. No use of accessory muscles of respiration. No adventitious breath sounds. Cardiovascular: S1, S2 heard. Regular rate and rhythm. Abdomen: Soft, nontender, and nondistended. Bowel sounds positive in all 4 quadrants. Genitourinary: Deferred. Extremities: No cyanosis, no clubbing, no edema. Peripheral pulses palpable. Neurologic: Cranial nerves II through XII grossly intact. The patient is awake, alert, and oriented. Skin: Normal skin turgor. No skin rashes. Labs & Vitals per chart ASSESSMENT & PLAN 72-year-old male with comorbidities including prostate hypertrophy, hypothyroidism, seizure disorder, and dyslipidemia who came to the emergency room with chief complaint of abdominal pain was found to have evidence of cholelithiasis and hyponatremia who was admitted inpatient setting for further t reatment and evaluation. 1. Acute abdominal pain. -Most probably secondary to passed gallstone(s) cholelithiasis (gallbladder ultrasound from 07/03/2018 showing cholelithiasis) -Continue pain control. -General surgery following. -CT scan showing mildly hydropic gallbladder. Nuclear medicine HIDA scan showing no evidence of common bile duct obstruction. -Will hold antimicrobials since the patient is afebrile and does not have any leukocytosis. 2. Hyponatremia secondary to SIADH. -Continue free water restriction. -Correct sodium levels gradually. 3. Seizure disorder. -Continue phenytoin. -Serum phenytoin levels within normal limits. 4. Hypothyroidism. -Will continue Synthroid. 5. Dyslipidemia. -Continue fibrates. 6. Prostate hypertrophy. -Start Flomax. 7. Fluids, electrolytes, and nutrition. -N.p.o. except for medications. -Gentle IV hydration with 0.9% NaCl. 8. DVT prophylaxis. -Bilateral SCDs. 9. Plan. -Continue pain control. -Correct sodium levels slowly. -Await further surgical recommendations. The patient was seen in collaboration with Dr. Montejo. Result Diagram: 07/06/18 0541 07/06/18 0541 Results 24hrs Laboratory Tests Test 07/05/18 10:30 07/05/18 14:08 07/05/18 17:47 07/05/18 17:56 White Blood Count 6.5 Red Blood Count 4.60 L Hemoglobin 14.3 Hematocrit 38.9 L Mean Corpuscular Volume 84.6 Mean Corpuscular 31.1 Hemoglobin Mean Corpuscular 36.8 Hemoglobin Concent Red Cell Distribution 11.4 L Width Platelet Count 168 Mean Platelet Volume 10.9 H Immature Granulocytes % 0.800 H Neutrophils % 64.9 Lymphocytes % 22.2 Monocytes % 11.4 H Eosinophils % 0.5 Basophils % 0.2 Nucleated Red Blood 0.0 Cells % Immature Granulocytes # 0.050 H Neutrophils # 4.2 Lymphocytes # 1.4 Monocytes # 0.7 Eosinophils # 0.0 Basophils # 0.0 Nucleated Red Blood 0.0 Cells # Urine Color YELLOW Urine Clarity CLEAR Urine pH 6.0 Urine Specific [place] 1.015 Urine Ketones 2+ H Urine Nitrite NEGATIVE Urine Bilirubin NEGATIVE Urine Urobilinogen 1+ H Urine Leukocyte Esterase NEGATIVE Urine Microscopic RBC 2 Urine Microscopic WBC 0 Urine Hemoglobin 1+ H Urine Osmolality 467 Urine Random Creatinine 107.74 Urine Random Sodium 72 Urine Glucose NEGATIVE Urine Total Protein NEGATIVE Sodium Level 122 L 122 L 126 L Potassium Level 3.8 Chloride Level 85 L Carbon Dioxide Level 22 Anion Gap 15 H Blood Urea Nitrogen 5 L Creatinine 0.48 L Est Glomerular Filtrat Rate mL/min Glucose Level 108 Osmolality 243 L Calcium Level 8.7 Total Bilirubin 0.3 Direct Bilirubin 0.00 Indirect Bilirubin 0.3 Aspartate Amino 32 # Transf (AST/SGOT) Alanine 39 Aminotransferase (ALT/SG PT) Alkaline Phosphatase 78 Troponin I < 0.012 Total Protein 7.9 Albumin 4.3 Globulin 3.60 H Albumin/Globulin Ratio 1.19 Lipase 60 Thyroid Stimulating 1.530 Hormone (TSH) Free Thyroxine 1.36 Phenytoin (Dilantin) < 3.0 L Level Uric Acid 3.6 Test 07/05/18 21:52 07/06/18 05:41 Sodium Level 124 L 130 L White Blood Count 7.4 Red Blood Count 4.47 L Hemoglobin 14.2 Hematocrit 38.5 L Mean Corpuscular Volume 86.1 Mean Corpuscular 31.8 Hemoglobin Mean Corpuscular 36.9 Hemoglobin Concent Red Cell Distribution 11.7 Width Platelet Count 161 Mean Platelet Volume 10.8 H Immature Granulocytes % 0.500 H Neutrophils % 58.8 Lymphocytes % 26.6 Monocytes % 13.1 H Eosinophils % 0.7 Basophils % 0.3 Nucleated Red Blood 0.0 Cells % Immature Granulocytes # 0.040 H Neutrophils # 4.4 Lymphocytes # 2.0 Monocytes # 1.0 H Eosinophils # 0.1 Basophils # 0.0 Nucleated Red Blood 0.0 Cells # Potassium Level 4.0 Chloride Level 91 L Carbon Dioxide Level 25 Anion Gap 14 H Blood Urea Nitrogen 5 L Creatinine 0.49 L Est Glomerular Filtrat Rate mL/min Glucose Level 89 Calcium Level 8.5 Phosphorus Level 3.1 Magnesium Level 2.1 Total Bilirubin 0.2 Direct Bilirubin 0.00 Indirect Bilirubin 0.2 Aspartate Amino 30 Transf (AST/SGOT) Alanine 39 Aminotransferase (ALT/SG PT) Alkaline Phosphatase 80 Total Protein 7.1 Albumin 3.9 Globulin 3.20 Albumin/Globulin Ratio 1.21 Random Cortisol 13.7 Phenytoin (Dilantin) 19.6 Level Exam/Review of Systems Vital Signs Vitals Vital Signs Date Temp Pulse Resp B/P (MAP) Pulse Ox O2 O2 Flow FiO2 Time Delivery Rate 07/06/18 98.2 73 18 149/76 97 Room Air 07:34 (100) Intake and Output 07/05/18 07/05/18 07/06/18 1515:00 23:00 07:00 IntakeIntake Total 225 ml 400 ml 550 ml OutputOutput Total 700 ml 300 ml 800 ml BalanceBalance -475 ml 100 ml -250 ml Medications Medications Current Medications IV Flush (NS 3 ml) 3 ml PER PROTOCOL IV ; Start 07/05/18 at 11:00 Ondansetron HCl (Zofran Inj) 4 mg Q6H PRN IV NAUSEA AND/OR VOMITING; Start 07/05/18 at 11:00 Acetaminophen/ Hydrocodone Bitart ([place] (5/325)) 1 tab Q6H PRN PO MODERATE PAIN LEVEL 4-6 Last administered on 07/05/18at 21:54; Admin Dose 1 TAB; Start at 11:00 Sodium Chloride 1,000 ml @ 40 mls/hr Q24H IV Last administered on 07/06/18at 06:36; Admin Dose 75 MLS/HR; Start 07/05/18 at 11:00 Phenytoin (Dilantin) 100 mg Q8 IV Last administered on 07/06/18at 05:15; Admin Dose 100 MG; Start 07/05/18 at 22:00 Morphine Sulfate (morphine SULFATE (PF)) 2 mg Q4H PRN IV SEVERE PAIN LEVEL 7- 10; Start 07/05/18 at 17:30 THERESE LEROY NP Jul 06, 2018 10:23
--- NOTE | 2018-07-06 14:01 | PN ---
Date/Time of Note Date/Time of Note DATE: 07/06/18 TIME: 13:58 Assessment/Plan Lines/Catheters IV Catheter Type (from Nrs): Peripheral IV Assessment/Plan Chief Complaint/Hosp Course 1. Left mid abdominal pain: 2/2 symptomatic cholelithiasis +/- cholecystitis (+hida) -abx -or -Pain management 2. Cholelithiasis: -As above 3.Hyponatremia, improving -Judicious fluid management and correction 4. Seizure disorder: -Med management 5. High cholesterol -Nutrition and medication optimization 6. Hypothyroidism: -Med management Thank you Subjective [address] noted. Abdominal pain. Labs improved. He denies fevers, chills, congested cough chest pain, palpitations, nausea, vomiting, seizures, rash, skin or scleral changes. Exam/Review of Systems Vital Signs Vitals Vital Signs Date Temp Pulse Resp B/P (MAP) Pulse Ox O2 O2 Flow FiO2 Time Delivery Rate 07/06/18 98.9 18 139/73 96 Room Air 13:50 (95) 07/06/18 73 07:34 Intake and Output 07/05/18 07/05/18 07/06/18 1515:00 23:00 07:00 IntakeIntake Total 225 ml 400 ml 550 ml OutputOutput Total 700 ml 300 ml 800 ml BalanceBalance -475 ml 100 ml -250 ml Exam Free Text/Dictation Constitutional: alert, oriented Psych: nl mood/affect; No anxiety Head: normocephalic, atraumatic Eyes: nl conjunctiva, EOMI, nl sclera ENMT: nl external ears & nose, nl lips & teeth, mucosa pink and moist Neck: supple, non-tender; No jvd Respiratory: normal air movement; No congested cough Cardiovascular: regular rate and rhythm, nl pulses Gastrointestinal: soft, tender (Left mid abdomen) without rebound, guarding, rigidity Musculoskeletal: nl extremities to inspection, nl gait and stance Extremities: normal pulses Neurological: nl mental status, nl speech, nl strength Skin: No rash or lesions Results Result Diagram: 07/06/18 0541 07/06/18 1105 VAISHNAVI MARSH MD Jul 06, 2018 14:01
--- NOTE | 2018-07-06 16:12 | PREAC ---
Date/Time of Note Date/Time of Note DATE: 07/06/18 TIME: 16:10 Anesthesia Eval and Record Evaluation Time Pre-Procedure Interview DATE: 07/06/18 TIME: 16:10 Age 72 Sex male NPO: 8 hrs Preoperative diagnosis cholelithiasis Planned procedure lap uzma Past Medical History Past Medical History: Includes Endo: Hypothyroid Neuro: Seizure disorder Surgery & Anesthesia Issues No known issue Meds Anticoagulation: No Beta Puja within 24 hr: No Reason Beta Puja not given: Pt. not on B-Puja Reported Medications Gemfibrozil* (Gemfibrozil*) 600 Mg Tablet, 600 MG PO BID, TAB 07/05/18 Levothyroxine Sodium* (Levothyroxine Sodium*) 150 Mcg Tablet, 150 MCG PO AC BREAKFAST 01/09/11 Phenytoin (Phenytoin) 100 Mg/4 Ml Oral.susp, 100 MG PO TID 01/09/11 Discontinued Reported Medications Doxazosin* (CARDURA*) 4 Mg Tablet, 4 MG PO AM 01/09/11 Sulfamethoxazole/Trimethoprim (Smz-Tmp Ds 800-160 Mg Tablet) 1 Tab Tablet, 1 TAB PO AM 01/09/11 Discontinued Scripts Ondansetron (Ondansetron Odt) 4 Mg Tab.rapdis, 4 MG PO Q6H PRN for NAUSEA AND/OR VOMITING, #10 TAB Prov:REBECCA BRITTON MD 07/04/18 Polymyxin B Sulfate-TMP* (Polymyxin B-TMP Eye Drops*) 10 Ml Drops, 1 DROP RIGHT EYE QID for 7 Days, EA Prov:KATHERINE LEYVA PA-C 01/27/16 Cephalexin* (Keflex*) 500 Mg Capsule, 500 MG PO QID for 7 Days, CAP Prov:KATHERINE LEYVA PA-C 01/27/16 Current Medications IV Flush (NS 3 ml) 3 ml PER PROTOCOL IV ; Start 07/05/18 at 11:00 Ondansetron HCl (Zofran Inj) 4 mg Q6H PRN IV NAUSEA AND/OR VOMITING; Start 07/05/18 at 11:00 Acetaminophen/ Hydrocodone Bitart ([place] (5/325)) 1 tab Q6H PRN PO MODERATE PAIN LEVEL 4-6 Last administered on 07/05/18at 21:54; Admin Dose 1 TAB; Start 07/05/18 at 11:00 Sodium Chloride 1,000 ml @ 40 mls/hr Q24H IV Last administered on 07/06/18at 06 :36; Admin Dose 75 MLS/HR; Start 07/05/18 at 11:00 Phenytoin (Dilantin) 100 mg Q8 IV Last administered on 07/06/18at 14:33; Admin Dose 100 MG; Start 07/05/18 at 22:00 Morphine Sulfate (morphine SULFATE (PF)) 2 mg Q4H PRN IV SEVERE PAIN LEVEL 7- 10; Start 07/05/18 at 17:30 Gemfibrozil (Lopid) 600 mg BID PO ; Start 07/06/18 at 21:00 Levothyroxine Sodium (Synthroid) 150 mcg AC BREAKFAST PO ; Start 07/07/18 at 07:00 Meds reviewed: Yes Allergies Coded Allergies: No Known Allergies (Verified Allergy, Unknown, 07/09/13) Allergies Reviewed: Yes Labs/Studies Labs Reviewed: Reviewed by anesthesiologist Result Diagram: 07/06/18 0541 07/06/18 1105 Laboratory Tests 07/06/18 05:41 07/06/18 11:05 test: N/A Studies: ECG (sr), CXR (nl) Pre-procedure Exam Last vitals Vital Signs Date Temp Pulse Resp B/P (MAP) Pulse Ox O2 O2 Flow FiO2 Time Delivery Rate 07/06/18 98.3 74 18 137/75 95 Room Air 15:19 (95) Airway: Adequate mouth opening Mallampati: Mallampati I Teeth: Normal Lung: Normal Heart: Normal ASA Physical Status ASA physical status: 2 Emergency: None Planned Anesthetic General/MAC: ETT Nerve block: Brachial plexus (bilateral) Planned Pain Management Single shot nerve block, Parenteral pain med Pre-operative Attestations Prior to commencing anesthesia and surgery, the patient was re-evaluated, there was verification of: *The patient's identity *The results of appropriate recent lab work and preoperative vital signs *The above evaluation not changing prior to induction *Anesthetic plan, risk benefits, alternative and complications discussed with patient/family; questions answered; patient/family understands, accepts and wishes to proceed. ADELINA OJEDA MD Jul 06, 2018 16:12
[2018-07-06] MEDS ORDERED: ROPIVACAINE 0.5 % 30 ML VIAL ONE (16:24)
[2018-07-06] MEDS ORDERED: DIPHENHYDRAMINE 50 MG INJ IV PRN (16:30)
[2018-07-06] MEDS ORDERED: ONDANSETRON 4 MG INJ IV PRN (16:30)
[2018-07-06] MEDS ORDERED: MEPERIDINE 25 MG INJ IV PRN (16:30)
[2018-07-06] MEDS ORDERED: HYDROmorphONE 1 MG/5 ML IV SYRINGE IV PRN (16:30)
[2018-07-06] MEDS ORDERED: LIDOCAINE 1% (MPF) 30 ML INJ ONE (16:40)
[2018-07-06] MEDS ORDERED: BUPIVACAINE 0.5%/EPI (SDV) 30 ML INJ ONE (16:40)
[2018-07-06] MEDS ORDERED: METOCLOPRAMIDE 10 MG INJ ONE (16:53)
[2018-07-06] MEDS ORDERED: MIDAZOLAM 1 MG/ML 2 ML INJ ONE (16:53)
[2018-07-06] MEDS ORDERED: ONDANSETRON 4 MG INJ ONE (17:07)
[2018-07-06] MEDS ORDERED: CEFAZOLIN 1 GM INJ ONE (17:07)
[2018-07-06] MEDS ORDERED: NEOSTIGMINE 3 MG/3 ML SYRINGE ONE (17:07)
[2018-07-06] MEDS ORDERED: EPHEDrine 50 MG INJ ONE (17:36)
[2018-07-06] MEDS ORDERED: PROPOFOL 20 ML ONE (17:54)
[2018-07-06] MEDS ORDERED: ROCURONIUM 50 MG INJ ONE ×2 (17:54)
[2018-07-06] MEDS ORDERED: GLYCOPYRROLATE 1 MG INJ ONE (18:37)
--- NOTE | 2018-07-06 18:43 | OPR ---
Date/Time of Note Date/Time of Note DATE: 07/06/18 TIME: 18:43 Operative Report Free Text/Dictation Preoperative Diagnosis: Symptomatic cholelithiasis Acute cholecystitis with positive HIDA Postoperative Diagnosis: Symptomatic cholelithiasis Abnormal liver color Acute cholecystitis with hydrops Operation(s) Performed: 1. 3 port laparoscopic cholecystectomy 2. Laparoscopic liver wedge resection biopsy 3. ICG (indigocarmine green) florescence cholangiography Surgeon: Vaishnavi Marsh MD Director Of Database Marketing: Prudence Guerrero NP Anesthesia: general, local, & regional Anesthesiologist: Alissa Lyles MD Estimated Blood Loss: Less than 50 ml's Specimens: Gallbladder Liver Tubes/Drains: 15 Niuean Hieu Complications: None Pt Condition Post Procedure: stable Disposition: PACU Indications: 72-year-old female with gallstones and abdominal pain here for cholecystectomy. Risks include but are not limited to bleeding, infection, abscess, seroma, damage to intestines, damage to the liver, damage to biliary tree, hernia formation, chronic pain, biloma, need for reoperations or further surgeries, ID, stroke, PE, DVT, pneumonia, organ failures, or even . Procedure Description: Patient was brought and placed supine on the operating table SCDs were placed, preoperative antibiotics were administered, all pressure points were well- padded, and after induction of anesthesia patient was prepped and draped in usual sterile fashion and timeout was performed. Incision was made in the supraumbilical region, Veress was safely inserted, and after a negative SIP test, abdomen was insufflated to 15mmHg. Veress was removed and 5mm port was safely inserted. Laparoscopy was performed with a 5 mm 30 scope. No injuries were identified. The liver looks somewhat abnormal color. The gallbladder is distended and thickened with evidence of inflammation and infection. 12 mm port is placed in subxiphoid under direct visualization followed by another 5 mm port in the right upper quadrant. Patient was placed in reverse Trendelenburg and right side up on gallbladder was retracted superolaterally. The gallbladder was large and distended. I had to perforate the gallbladder and empty the contents to be able to manipulated. The fluid was clear as hydrops gallbladder. Using electrocautery and blunt dissection I was able to identify the cystic artery and cystic duct. The duct tapered into the gallbladder. Full critical angle view was identified. ICG fluorescence cholangiography was performed identifying the common bile duct with some contrast into the cystic duct. This confirmed our anatomy further. There is bile in the small bowel. Both structures were clipped twice proximally and once distally and transected. The gallbladder was taken off the liver with electrocautery. Hemostasis was obtained. Gallbladder was placed in an Endo Catch bag and removed through the subxiphoid port site which had to be enlarged to allow extraction of a thickened large distended gallbladder. There was complete hemostasis. Due to the abnormality of the liver, decision was made to perform liver wedge re section which was done with electrocautery and scissor with complete hemostasis right after. The specimen was sent to pathology for further evaluation. There was significant oozing from from raw surfaces of the liver which were controlled with electrocautery however at the end of the operation fibrillar was implanted. 15 Niuean drain was placed through the right lateral port and secured with 2-0 nylon. Dressing was eventually applied around the drain site. 12 mm made port site fascia was closed with Endo Close of an 0 Vicryl in a [id number] manner. Ports and CO2 were removed under direct visualization. Next complete hemostasis. Wounds were thoroughly irrigated skin was closed with 4-0 Monocryl in subcuticular fashion. Dermabond was applied. Patient was extubated and transferred to recovery room in stable condition and all counts were correct and the end of the operation 2. VAISHNAVI MARSH MD Jul 06, 2018 18:43
[2018-07-06] MEDS: HYDROmorphONE 1 MG/5 ML IV SYRINGE IV PRN ×4 (19:28→20:02)
[2018-07-06] MEDS: GEMFIBROZIL 600 MG TAB PO SCH (21:16)
[2018-07-06] MEDS ORDERED: morphine LIQ (10 MG/5 ML) CUP PO PRN (23:30)
[2018-07-07 00:15] VITALS: BP 146/87; PULSE 87; RESP 17
[2018-07-07 01:00] VITALS: BP 135/78; PULSE 88; RESP 17
[2018-07-07 02:00] VITALS: BP 133/75; PULSE 61; RESP 17
[2018-07-07] MEDS: LEVOTHYROXINE 150 MCG TAB PO SCH (06:50)
[2018-07-07] MEDS: PHENYTOIN 100 MG INJ IV SCH ×3 (06:50→21:11)
[2018-07-07 07:32] VITALS: BP 142/78; PULSE 92; RESP 16
--- NOTE | 2018-07-07 08:56 | PN ---
DATE: 07/07/2018 SUBJECTIVE: The patient is stable, no events overnight. The patient is status post laparoscopic cho lecystectomy. Pain is currently controlled. OBJECTIVE: VITAL SIGNS: Blood pressure is 142/78, respirations 16, pulse 92, temperature 98.6. HEENT: Head is normocephalic. NECK: Supple. HEART: Regular rate. LUNGS: Show diminished breath sounds at the base. ABDOMEN: Soft, nontender to palpation without rebound or guarding. EXTREMITIES: Negative for clubbing, cyanosis, no edema. DERMATOLOGIC: No rashes. MUSCULOSKELETAL: No joint effusion. NEUROLOGIC: No change in exam. MEDICATIONS: The patient's medications have been reviewed. LABORATORY DATA: Shows sodium 130, potassium 3.7, BUN 4, creatinine 0.96. White count 14.1, hemoglo bin 14.2, platelet count 182. ASSESSMENT AND PLAN: 1. Hypernatremia, etiology is likely multifactorial secondary to syndrome of inappropriate antidiure tic hormone from pain with possible superimposed volume depletion. The patient's sodium levels have improved with initial IV fluids. However, sodium levels currently remain around 130 mEq per liter. Plan at this point is to discontinue IV fluids. We will encourage high osmolar diet and limit free w ater intake, no more than 800 mL daily. Continue to monitor serial sodium levels closely. 2. Acute cholecystitis. The patient is status post laparoscopic cholecystectomy. Continue to monit or, continue pain control. 3. Seizure disorder. Continue medical management. 4. Dyslipidemia. Continue statin therapy. 5. Hypothyroidism. Continue Synthroid. 6. Systemic inflammatory response syndrome. Dictated By: MICHAEL TROY DO NR/NTS Conf#: [id number] DID#: [id number] CC: VAISHNAVI MARSH MD; OLIVE MCKEON MD;*EndCC*
[2018-07-07] MEDS: GEMFIBROZIL 600 MG TAB PO SCH ×2 (10:31→21:11)
[2018-07-07] MEDS: HYDROCODONE/APAP (5/325) TAB PO PRN ×2 (10:32→22:03)
--- NOTE | 2018-07-07 12:53 | PN ---
Date/Time of Note Date/Time of Note DATE: 07/07/18 TIME: 12:48 Assessment/Plan Lines/Catheters IV Catheter Type (from Nrsg): Peripheral IV Assessment/Plan Assessment/Plan 1. Symptomatic cholelithiasis, acute cholecystitis with hydrops, abnormal liver color: Status post laparoscopic cholecystectomy and liver wedge biopsy 07/06/18 -IS -ambulate -ice pack to abdominal wall -advance diet as tolerated -Continue drain 2. Left mid abdominal pain: -As above -Pain management 3. Leukocytosis: No infectious symptoms -Trend 3.Hyponatremia, improving -Judicious fluid management and correction> per renal 4. Seizure disorder: -Med management 5. High cholesterol -Nutrition and medication optimization 6. Hypothyroidism: -Med management Thank you. Patient seen and examined in collaboration with Dr. Tevin Kahn. Subjective 24 Hr Interval Summary Feels well. Some abdominal tenderness around incision sites. WBC up. No fevers, chills, sob, congested cough, cp, palpitations, núñez, dizziness, nausea, vomiting, diarrhea, dysuria. Tolerating diet. Exam/Review of Systems Vital Signs Vitals Vital Signs Date Temp Pulse Resp B/P (MAP) Pulse Ox O2 O2 Flow FiO2 Time Delivery Rate 07/07/18 98.6 92 16 142/78 96 07:32 (99) 07/07/18 Room Air 02:00 07/06/18 8.0 18:56 Intake and Output 07/06/18 07/06/18 07/07/18 1515:00 23:00 07:00 IntakeIntake Total 150 ml 1500 ml 320 ml OutputOutput Total 301 ml 65 ml 50 ml BalanceBalance -151 ml 1435 ml 270 ml Exam Free Text/Dictation Constitutional: alert, oriented Psych: nl mood/affect; No anxiety Head: normocephalic, atraumatic Eyes: nl conjunctiva, EOMI, nl sclera ENMT: nl external ears & nose, nl lips & teeth, mucosa pink and moist Neck: supple, non-tender; No jvd Respiratory: normal air movement; No congested cough Cardiovascular: regular rate and rhythm, nl pulses Gastrointestinal: soft, tender (mart-incisional, incision sites dry without drainage/bruising/discoloration; TIFFANIE drain scant sanguinous drainage) without rebound, guarding, rigidity Musculoskeletal: nl extremities to inspection, nl gait and stance Extremities: normal pulses Neurological: nl mental status, nl speech, nl strength Skin: No rash or lesions Results Result Diagram: 07/07/18 0443 07/07/18 0443 AIDEN EVANS NP Jul 07, 2018 12:53
--- NOTE | 2018-07-07 13:52 | PN ---
Date/Time of Note Date/Time of Note DATE: 07/07/18 TIME: 13:50 Assessment/Plan VTE Prophylaxis Risk score (from Nsg)>0 risk: 4 SCD applied (from Nsg): Yes Pharmacological prophylaxis: other Lines/Catheters IV Catheter Type (from Nrsg): Peripheral IV Assessment/Plan Hospital Course SUBJECTIVE: Continues to have incisional pain. OBJECTIVE: Physical Exam General: Adequately build 72 year-old male lying in bed in no apparent distress. HEENT: Normocephalic, atraumatic. Eyes: Anicteric sclerae, conjunctivae clear. ENT: Nasal septum midline, oral mucosa moist. Neck supple. Respiratory: Bilaterally clear breath sounds. No use of accessory muscles of respiration. No adventitious breath sounds. Cardiovascular: S1, S2 heard. Regular rate and rhythm. Abdomen: Mildly distended. Yue-incisional tenderness. Right lower quadrant drain. Bowel sounds positive in all 4 quadrants. Genitourinary: Deferred. Extremities: No cyanosis, no clubbing, no edema. Peripheral pulses palpable. Neurologic: Cranial nerves II through XII grossly intact. The patient is awake, alert, and oriented. Skin: Normal skin turgor. No skin rashes. Labs & Vitals per chart ASSESSMENT & PLAN 72-year-old male with comorbidities including prostate hypertrophy, hypothy roidism, seizure disorder, and dyslipidemia who came to the emergency room with chief complaint of abdominal pain was found to have evidence of cholelithiasis and hyponatremia who was admitted inpatient setting for further treatment and evaluation. 1. Acute cholecystitis with hydrops. -Status post 3 port laparoscopic cholecystectomy and placement of a drain on 07/06/2018. -Continue pain control. -Continue incentive spirometry and frequent ambulation. 2. Hyponatremia secondary to SIADH. -Continue free water restriction. -Correct sodium levels gradually. 3. Seizure disorder. -Continue phenytoin. -Serum phenytoin levels within normal limits. 4. Hypothyroidism. -Will continue Synthroid. 5. Dyslipidemia. -Continue fibrates. 6. Prostate hypertrophy. -Continue Flomax. 7. Fluids, electrolytes, and nutrition. -Clear liquids. Advancement of diet as per surgery. -Gentle IV hydration with 0.9% NaCl. 8. DVT prophylaxis. -Bilateral SCDs. 9. Plan. -Continue pain control. -Correct sodium levels slowly. -Encourage frequent ambulation and frequent use of incentive spirometry. -Advancement of diet as per surgery. The patient was seen in collaboration with Dr. Montejo. Result Diagram: 07/07/18 0443 07/07/18 0443 Results 24hrs Laboratory Tests Test 07/07/18 04:43 White Blood Count 14.1 #H Red Blood Count 4.55 L Hemoglobin 14.2 Hematocrit 39.9 L Mean Corpuscular Volume 87.7 Mean Corpuscular Hemoglobin 31.2 Mean Corpuscular Hemoglobin Concent 35.6 Red Cell Distribution Width 12.2 Platelet Count 182 Mean Platelet Volume 11.2 H Immature Granulocytes % 0.600 H Neutrophils % 81.7 H Lymphocytes % 7.5 L Monocytes % 10.1 Eosinophils % 0.0 Basophils % 0.1 Nucleated Red Blood Cells % 0.0 Immature Granulocytes # 0.090 H Neutrophils # 11.5 H Lymphocytes # 1.1 Monocytes # 1.4 H Eosinophils # 0.0 Basophils # 0.0 Nucleated Red Blood Cells # 0.0 Sodium Level 130 L Potassium Level 3.7 Chloride Level 96 L Carbon Dioxide Level 19 L Anion Gap 15 H Blood Urea Nitrogen 4 L Creatinine 0.46 L Est Glomerular Filtrat Rate mL/min Glucose Level 117 Calcium Level 8.4 Phosphorus Level 2.8 Magnesium Level 1.9 Total Bilirubin 0.2 Direct Bilirubin 0.00 Indirect Bilirubin 0.2 Aspartate Amino Transf (AST/SGOT) 81 #H Alanine Aminotransferase (ALT/SGPT) 66 Alkaline Phosphatase 87 Total Protein 7.4 Albumin 4.1 Globulin 3.30 H Albumin/Globulin Ratio 1.24 Exam/Review of Systems Vital Signs Vitals Vital Signs Date Temp Pulse Resp B/P (MAP) Pulse Ox O2 O2 Flow FiO2 Time Delivery Rate 07/07/18 98.6 92 16 142/78 96 07:32 (99) 07/07/18 Room Air 02:00 07/06/18 8.0 18:56 Intake and Output 07/06/18 07/06/18 07/07/18 1515:00 23:00 07:00 IntakeIntake Total 150 ml 1500 ml 320 ml OutputOutput Total 301 ml 65 ml 50 ml BalanceBalance -151 ml 1435 ml 270 ml Medications Medications Current Medications IV Flush (NS 3 ml) 3 ml PER PROTOCOL IV ; Start 07/05/18 at 11:00 Ondansetron HCl (Zofran Inj) 4 mg Q6H PRN IV NAUSEA AND/OR VOMITING Last administered on 07/07/18 13:35; Admin Dose 4 MG; Start 07/05/18 at 11:00 Acetaminophen/ Hydrocodone Bitart ([place] (5/325)) 1 tab Q6H PRN PO MODERATE PAIN LEVEL 4-6 Last administered on 07/07/18 10:32; Admin Dose 1 TAB; Start 07/05/18 at 11:00 Phenytoin (Dilantin) 100 mg Q8 IV Last administered on 07/07/18 13:35; Admin Dose 100 MG; Start 07/05/18 at 22:00 Gemfibrozil (Lopid) 600 mg BID PO Last administered on 07/07/18 10:31; Admin Dose 600 MG; Start 07/06/18 at 21:00 Levothyroxine Sodium (Synthroid) 150 mcg AC BREAKFAST PO Last administered on 07/07/18 06:50; Admin Dose 150 MCG; Start 07/07/18 at 07:00 Morphine Sulfate (morphine) 6 mg Q4H PRN PO SEVERE PAIN LEVEL 7-10; Start 07/06/18 at 23:30 Acetaminophen (Tylenol Tab) 650 mg Q6H PRN PO MILD PAIN(1-3)OR ELEVATED TEMP; Start 07/07/18 at 07:00 Tamsulosin HCl (Flomax) 0.4 mg HS PO ; Start 07/07/18 at 21:00 THERESE LEROY NP Jul 07, 2018 13:52
[2018-07-07] MEDS ORDERED: BISACODYL (EC) 5 MG TAB PO PRN (14:00)
[2018-07-07 15:20] VITALS: BP 118/70; PULSE 109
[2018-07-07 19:51] VITALS: BP 122/76; PULSE 101; RESP 18
[2018-07-07] MEDS: POLYETHYLENE GLYCOL 17 GM PACKET PO SCH (21:11)
[2018-07-07] MEDS: TAMSULOSIN (SR) 0.4 MG CAP PO SCH (21:11)
[2018-07-08 02:05] VITALS: BP 117/71; PULSE 101; RESP 18
[2018-07-08] MEDS: LEVOTHYROXINE 150 MCG TAB PO SCH (06:02)
[2018-07-08] MEDS: PHENYTOIN 100 MG INJ IV SCH ×3 (06:02→21:19)
[2018-07-08] MEDS: HYDROCODONE/APAP (5/325) TAB PO PRN (06:02)
[2018-07-08 07:38] VITALS: BP 127/72; PULSE 110; RESP 18
--- NOTE | 2018-07-08 08:18 | PAC ---
Date/Time of Note Date/Time of Note DATE: 07/08/18 TIME: 08:17 Post-Anesthesia Notes Post-Anesthesia Note Last documented vital signs Vital Signs Date Temp Pulse Resp B/P (MAP) Pulse Ox O2 O2 Flow FiO2 Time Delivery Rate 07/08/18 98.6 110 18 127/72 96 Room Air 07:38 (90) 07/06/18 8.0 18:56 Activity: WNL Respiratory function: WNL Cardiovascular function: WNL Mental status: Baseline Pain reasonably controlled: Yes Hydration appropriate: Yes Nausea/Vomiting absent: No ADELINA OJEDA MD Jul 08, 2018 08:18
[2018-07-08] MEDS: GEMFIBROZIL 600 MG TAB PO SCH ×2 (08:53→20:29)
[2018-07-08] MEDS: ACETAMINOPHEN 325 MG TAB PO PRN (08:53)
[2018-07-08] MEDS: POLYETHYLENE GLYCOL 17 GM PACKET PO SCH ×2 (08:54→20:29)
[2018-07-08] MEDS: SOD CHLORIDE 0.9% 1,000 ML IV SCH ×2 (08:55→21:50)
--- NOTE | 2018-07-08 09:00 | PN ---
DATE: 07/08/2018 SUBJECTIVE: Overnight, the patient has had nausea, vomiting, and abdominal pain. The patient has núñez d poor oral intake. No other events noted. OBJECTIVE: VITAL SIGNS: Blood pressure is 127/72, respirations 18, pulse 110, temperature 98.6. HEENT: Head is normocephalic. NECK: Supple. HEART: Regular rate. LUNGS: Show diminished breath sounds at the base. ABDOMEN: Soft, positive nontender to palpation. No rebound or guarding. EXTREMITIES: Negative for clubbing, cyanosis, no edema. DERMATOLOGIC: No rashes. MUSCULOSKELETAL: No joint effusions. NEUROLOGIC: No change in exam. MEDICATIONS: Reviewed. LABORATORY DATA: Shows white count of 21,000, hemoglobin 16.5, platelet count 214. Sodium 129, pota ssium 4.0, chloride 92, BUN 14, creatinine 1.65. ASSESSMENT AND PLAN: 1. Nonoliguric acute kidney injury with previous baseline creatinine of 0.6 mg/dL. Etiology is like ly secondary to hemodynamics, volume depletion, possible septic acute kidney injury. Plan is to star t the patient on IV hydration, normal saline 75 mL an hour. We will continue to monitor renal functi on closely. Consider repeating urinalysis. Otherwise, continue current treatment plan. 2. Hyponatremia, etiology is multifactorial secondary to syndrome of inappropriate antidiuretic horm one, volume depletion. The patient's sodium levels have improved with IV hydration. Continue to mon itor sodium levels closely on IV fluids. 3. Acute cholecystitis. The patient is status post laparoscopic cholecystectomy. Continue to monit or. 4. Systemic inflammatory response syndrome, possible sepsis. The patient's white count is 27,000. We will consider starting the patient antibiotics. Check blood cultures, procalcitonin level, lactic acid level. Defer to primary team and general surgery. 5. Seizure disorder. Continue medical management. 6. Dyslipidemia. Continue statin therapy. 7. Hypothyroidism. Continue Synthroid. Dictated By: MICHAEL TROY DO NR/NTS Conf#: [id number] DID#: [id number] CC: VAISHNAVI MARSH MD; OLIVE MCKEON MD;*EndCC*
--- NOTE | 2018-07-08 10:22 | PN ---
Date/Time of Note Date/Time of Note DATE: 07/08/18 TIME: 10:08 Assessment/Plan Lines/Catheters IV Catheter Type (from [facility]): Peripheral IV [facility] in Place (from [facility]): No Assessment/Plan Chief Complaint/Hosp Course 1. Symptomatic cholelithiasis, acute cholecystitis with hydrops, abnormal liver color: Status post laparoscopic cholecystectomy and liver wedge biopsy 07/06/18; increased abdominal pain, distention, nausea vomiting and acute elevation in WBC -CT abdomen -N.p.o. for now -IS -ambulate -ice pack to abdominal wall -Continue drain 2. Left mid abdominal pain: -As above -Pain management 3. Leukocytosis: Elevated -Trend 3.YARIEL: -Limit nephrotoxic meds -Renally dose meds -Per renal 4.. Hyponatremia, -Judicious fluid management and correction> per renal 5. High cholesterol -Nutrition and medication optimization 6. Hypothyroidism: -Med management 7. Seizure disorder: -Med management Thank you. Patient seen and examined in collaboration with Dr. Tevin Kahn. Subjective 24 Hr Interval Summary Abdominal pain. Nausea, vomiting bilious. Tachycardia. + Bowel function. No chest pain, shortness of breath, diarrhea, seizure, rash. Exam/Review of Systems Vital Signs Vitals Vital Signs Date Temp Pulse Resp B/P (MAP) Pulse Ox O2 O2 Flow FiO2 Time Delivery Rate 07/08/18 97.7 10:02 07/08/18 110 18 127/72 96 Room Air 07:38 (90) 07/06/18 8.0 18:56 Intake and Output 07/07/18 07/07/18 07/08/18 1515:00 23:00 07:00 IntakeIntake Total 1400 ml 240 ml OutputOutput Total 500 ml 30 ml BalanceBalance 900 ml 210 ml Exam Free Text/Dictation Constitutional: alert, oriented Psych: nl mood/affect; No anxiety Head: normocephalic, atraumatic Eyes: nl conjunctiva, EOMI, nl sclera ENMT: nl external ears & nose, nl lips & teeth, mucosa pink and moist Neck: supple, non-tender; No jvd Respiratory: normal air movement; No congested cough Cardiovascular: regular rate and rhythm, nl pulses Gastrointestinal: soft, tender (mart-incisional, incision sites dry without drainage/bruising/discoloration; TIFFANIE drain scant sanguinous drainage) without rebound; moderately distended Musculoskeletal: nl extremities to inspection, nl gait and stance Extremities: normal pulses Neurological: nl mental status, nl speech, nl strength Skin: No rash or lesions Results Result Diagram: 07/08/1838 07/08/1838 AIDEN EVANS NP Jul 08, 2018 10:22
[2018-07-08] MEDS ORDERED: SOD CHLORIDE 0.9% 500 ML IV ONE ×2 (11:00→18:30)
--- NOTE | 2018-07-08 12:27 | PN ---
Date/Time of Note Date/Time of Note DATE: 07/08/18 TIME: 12:24 Assessment/Plan VTE Prophylaxis Risk score (from Ns)>0 risk: 4 SCD applied (from Ns): Yes Pharmacological prophylaxis: NA/contraindicated Pharm contraindication: other (Recent surgery.) Lines/Catheters IV Catheter Type (from [facility]): Peripheral IV Urinary Cath still in place: No Assessment/Plan Hospital Course SUBJECTIVE: Continues to have incisional pain. Denies any nausea vomiting. WBC has been trending up. Renal function getting worse. OBJECTIVE: Physical Exam General: Adequately build 72 year-old male lying in bed in no apparent distress. HEENT: Normocephalic, atraumatic. Eyes: Anicteric sclerae, conjunctivae clear. ENT: Nasal septum midline, oral mucosa moist. Neck supple. Respiratory: Bilaterally diminished breath sounds. No use of accessory muscles of respiration. No adventitious breath sounds. Cardiovascular: S1, S2 heard. Regular rate and rhythm. Abdomen: Mildly distended. Yue-incisional tenderness. Right lower quadrant drain. Genitourinary: Deferred. Extremities: No cyanosis, no clubbing, no edema. Peripheral pulses palpable. Neurologic: Cranial nerves II through XII grossly intact. The patient is awake, alert, and oriented. Skin: Normal skin turgor. No skin rashes. Labs & Vitals per chart ASSESSMENT & PLAN 72-year-old male with comorbidities including prostate hypertrophy, hypothyroidism, seizure disorder, and dyslipidemia who came to the emergency room with chief complaint of abdominal pain was found to have evidence of cholelithiasis and hyponatremia who was admitted inpatient setting for further treatment and evaluation. 1. Acute cholecystitis with hydrops. -Status post 3 port laparoscopic cholecystectomy and placement of a drain on 07/06/2018. -Continue pain control. -Continue incentive spirometry and frequent ambulation. 2. Postoperative ileus. -The patient n.p.o. -NGT insertion ordered by general surgery. 3. Leukocytosis. -Etiology unclear. -Started on empiric antimicrobials -CT scan of the abdomen and pelvis from 07/08/2018 showing bilateral lower lobe consolidation; pneumonia versus atelectasis. 4. Hyponatremia secondary to SIADH. -Continue free water restriction. -Correct sodium levels gradually. -Being followed by nephrology. 5. Acute kidney injury (07/08/2018). -Etiology could include underlying hemodynamics versus infectious process (sepsis). -Use nephrotoxic drugs with caution. 6. Seizure disorder. -Continue phenytoin. -Serum phenytoin levels within normal limits. 7. Hypothyroidism. -Will continue Synthroid. 8. Dyslipidemia. -Continue fibrates. 9. Prostate hypertrophy. -Continue Flomax. 10. Fluids, electrolytes, and nutrition. -N.p.o. -Gentle IV hydration with 0.9% NaCl. 11. DVT prophylaxis. -Bilateral SCDs. 12. Plan. -Continue pain control. -Correct sodium levels slowly. -Encourage frequent ambulation and frequent use of incentive spirometry. -Start empiric antibiotics. The patient was seen in collaboration with Dr. Montejo. Result Diagram: 07/08/1853707/08/18537 Results 24hrs Laboratory Tests Test 07/08/18 05:38 White Blood Count 21.1 #H Red Blood Count 5.29 Hemoglobin 16.5 Hematocrit 46.1 Mean Corpuscular Volume 87.1 Mean Corpuscular Hemoglobin 31.2 Mean Corpuscular Hemoglobin Concent 35.8 Red Cell Distribution Width 12.6 Platelet Count 214 Mean Platelet Volume 10.7 H Immature Granulocytes % 0.700 H Neutrophils % 81.6 H Lymphocytes % 7.5 L Monocytes % 9.9 Eosinophils % 0.1 Basophils % 0.2 Nucleated Red Blood Cells % 0.0 Immature Granulocytes # 0.150 H Neutrophils # 17.2 H Lymphocytes # 1.6 Monocytes # 2.1 H Eosinophils # 0.0 Basophils # 0.1 Nucleated Red Blood Cells # 0.0 Sodium Level 129 L Potassium Level 4.0 Chloride Level 92 L Carbon Dioxide Level 21 Anion Gap 16 H Blood Urea Nitrogen 14 # Creatinine 1.65 #H Est Glomerular Filtrat Rate mL/min Glucose Level 159 Calcium Level 10.0 Phosphorus Level 3.2 Magnesium Level 2.2 Total Bilirubin 0.3 Direct Bilirubin 0.00 Indirect Bilirubin 0.3 Aspartate Amino Transf (AST/SGOT) 56 H Alanine Aminotransferase (ALT/SGPT) 57 Alkaline Phosphatase 96 Total Protein 8.3 H Albumin 4.4 Globulin 3.90 H Albumin/Globulin Ratio 1.12 Exam/Review of Systems Vital Signs Vitals Vital Signs Date Temp Pulse Resp B/P (MAP) Pulse Ox O2 O2 Flow FiO2 Time Delivery Rate 07/08/18 97.7 10:02 07/08/18 110 18 127/72 96 Room Air 07:38 (90) 07/06/18 8.0 18:56 Intake and Output 07/07/18 07/07/18 07/08/18 1515:00 23:00 07:00 IntakeIntake Total 1400 ml 240 ml OutputOutput Total 500 ml 30 ml BalanceBalance 900 ml 210 ml Medications Medications Current Medications IV Flush (NS 3 ml) 3 ml PER PROTOCOL IV ; Start 07/05/18 at 11:00 Ondansetron HCl (Zofran Inj) 4 mg Q6H PRN IV NAUSEA AND/OR VOMITING Last administered on 07/07/18 13:35; Admin Dose 4 MG; Start 07/05/18 at 11:00 Acetaminophen/ Hydrocodone Bitart ([place] (5/325)) 1 tab Q6H PRN PO MODERATE PAIN LEVEL 4-6 Last administered on 07/08/18 06:02; Admin Dose 1 TAB; Start 07/05/18 at 11:00 Phenytoin (Dilantin) 100 mg Q8 IV Last administered on 07/08/18 06:02; Admin Dose 100 MG; Start 07/05/18 at 22:00 Gemfibrozil (Lopid) 600 mg BID PO Last administered on 07/08/18 08:53; Admin Dose 600 MG; Start 07/06/18 at 21:00 Levothyroxine Sodium (Synthroid) 150 mcg AC BREAKFAST PO Last administered on 07/08/18 06:02; Admin Dose 150 MCG; Start 07/07/18 at 07:00 Morphine Sulfate (morphine) 6 mg Q4H PRN PO SEVERE PAIN LEVEL 7-10 Last a dministered on 07/08/18 11:26; Admin Dose 6 MG; Start 07/06/18 at 23:30 Acetaminophen (Tylenol Tab) 650 mg Q6H PRN PO MILD PAIN(1-3)OR ELEVATED TEMP Last administered on 07/08/18 08:53; Admin Dose 650 MG; Start 07/07/18 at 07:00 Tamsulosin HCl (Flomax) 0.4 mg HS PO Last administered on 07/07/18 21:11; Admin Dose 0.4 MG; Start 07/07/18 at 21:00 Polyethylene Glycol (Miralax) 17 gm BID PO Last administered on 1/9/19at 21:11; Admin Dose 17 GM; Start 07/07/18 at 21:00 Bisacodyl (Dulcolax) 10 mg DAILY PRN PO CONSTIPATION Last administered on 07/07/18at 18:25; Admin Dose 10 MG; Start 07/07/18 at 14:00 Simethicone (Mylicon) 80 mg BID PRN PO DISTENSION/GAS/BLOATING Last administered on 07/08/18at 03:02; Admin Dose 80 MG; Start 07/07/18 at 16:30 Sodium Chloride 1,000 ml @ 75 mls/hr [id number] IV Last administered on 07/08/18at 08:55; Admin Dose 75 MLS/HR; Start 07/08/18 at 08:30 Piperacillin Sod/ Tazobactam Sod 100 ml @ 200 mls/hr Q6 IVPB ; Start 07/08/18 at 12:00 THERESE LEROY NP Jul 08, 2018 12:27
[2018-07-08] MEDS: PIPER-TAZO 3.375 GM IV (PMX) 100 ML IVPB SCH ×2 (13:38→17:43)
[2018-07-08 14:45] VITALS: BP 120/74; PULSE 103; RESP 18
[2018-07-08 19:21] VITALS: BP 130/75; PULSE 112; RESP 16
[2018-07-08] MEDS: TAMSULOSIN (SR) 0.4 MG CAP PO SCH (20:28)
[2018-07-09] MEDS: PIPER-TAZO 3.375 GM IV (PMX) 100 ML IVPB SCH ×5 (00:02→23:29)
[2018-07-09 01:35] VITALS: BP 134/83; PULSE 105; RESP 18
[2018-07-09] MEDS: PHENYTOIN 100 MG INJ IV SCH ×3 (05:52→21:30)
[2018-07-09] MEDS: LEVOTHYROXINE 150 MCG TAB PO SCH (07:00)
[2018-07-09 07:21] VITALS: BP 132/77; PULSE 106; RESP 15
[2018-07-09] MEDS: GEMFIBROZIL 600 MG TAB PO SCH ×2 (08:19→21:30)
[2018-07-09] MEDS: POLYETHYLENE GLYCOL 17 GM PACKET PO SCH ×2 (08:19→21:31)
--- NOTE | 2018-07-09 08:20 | PN ---
DATE: 07/09/2018 SUBJECTIVE: The patient overnight has been stable. NG tube has been to suction. No fevers or chill s. OBJECTIVE: VITAL SIGNS: Blood pressure is 132/77, respirations 15, pulse 106, temperature 99.2. HEENT: Head is normocephalic. NECK: Supple. HEART: Regular rate. LUNGS: Show diminished breath sounds at the base. ABDOMEN: Soft, nontender to palpation without rebound or guarding. EXTREMITIES: Negative for clubbing, cyanosis, no edema. DERMATOLOGIC: No rashes. MUSCULOSKELETAL: No joint effusions. NEUROLOGIC: No change in exam. MEDICATIONS: The patient's medications have been reviewed. LABORATORY DATA: Shows sodium 133, BUN 18, creatinine 0.88. White count 16.3, hemoglobin 14.7, plat elet count is 206. ASSESSMENT AND PLAN: 1. Nonoliguric acute kidney injury, etiology is secondary to volume depletion. Renal function has i mproved with IV fluids, continue current treatment plan. Continue supportive care, renally dose all medicines. 2. Hyponatremia. Etiology is multifactorial secondary to acute kidney injury, with possible underly ing syndrome of inappropriate antidiuretic hormone secretion due to pain. Sodium levels have been im proving with medical management and IV hydration. We will continue. 3. Acute cholecystitis status post laparoscopic cholecystectomy. Continue to monitor. 4. Postoperative ileus. The patient has NG tube in place to intermittent suction. CT scan was revi ewed. Continue to monitor. Follow up with general surgery. 5. Systemic inflammatory response syndrome. Continue antibiotic therapy. Follow up cultures. 6. Seizure disorder. Continue medical management. 7. Dyslipidemia. Continue statin therapy. 8. Hypothyroidism. Continue Synthroid. Dictated By: MICHAEL TROY DO NR/NTS Conf#: [id number] DID#: [id number] CC: VAISHNAVI AMRSH MD; OLIVE MCKEON MD;*End*
--- NOTE | 2018-07-09 09:57 | PN ---
Date/Time of Note Date/Time of Note DATE: 07/09/18 TIME: 09:56 Assessment/Plan Lines/Catheters IV Catheter Type (from [facility]): Peripheral IV Benson in Place (from [facility]): No Assessment/Plan Chief Complaint/Hosp Course 1. Symptomatic cholelithiasis, acute cholecystitis with hydrops, abnormal liver color: Status post laparoscopic cholecystectomy and liver wedge biopsy 07/06/18;; CT noted -Clamp NG for now check residual in 4 hours with possible resumption of fluids p .o. -IS -ambulate -ice pack to abdominal wall -Continue drain 2. Left mid abdominal pain: Much improved -As above -Pain management 3. Leukocytosis: Improved -Trend 3.YARIEL: Improved -Limit nephrotoxic meds -Renally dose meds -Per renal 4.. Hyponatremia, -Judicious fluid management and correction> per renal 5. High cholesterol -Nutrition and medication optimization 6. Hypothyroidism: -Med management 7. Seizure disorder: -Med management Thank you. Patient seen and examined in collaboration with Dr. Tevin Kahn. Subjective 24 Hr Interval Summary wbc improving. Min tachycardia. Ng output noted-no NG output since yesterday. Feels much better. Bloating and abdominal distention much improved. Low-grade temp. No fevers, chills, sob, congested cough, cp, palpitations, núñez, dizziness, nausea, vomiting, diarrhea, dysuria. Exam/Review of Systems Vital Signs Vitals Vital Signs Date Temp Pulse Resp B/P (MAP) Pulse Ox O2 O2 Flow FiO2 Time Delivery Rate 07/09/18 99.2 106 15 132/77 93 Room Air 07:21 (95) 07/06/18 8.0 18:56 Intake and Output 07/08/18 07/08/18 07/09/18 1515:00 23:00 07:00 IntakeIntake Total 720 ml 1100 ml 620 ml OutputOutput Total 20 ml 420 ml 400 ml BalanceBalance 700 ml 680 ml 220 ml Exam Free Text/Dictation Constitutional: alert, oriented Psych: nl mood/affect; No anxiety Head: normocephalic, atraumatic Eyes: nl conjunctiva, EOMI, nl sclera ENMT: nl external ears & nose, nl lips & teeth, mucosa pink and moist Neck: supple, non-tender; No jvd Respiratory: normal air movement; No congested cough Cardiovascular: regular rate and rhythm, nl pulses Gastrointestinal: soft, tender (mart-incisional, incision sites dry without drainage/bruising/discoloration; TIFFANIE drain scant sanguinous drainage) without rebound; nondistended Musculoskeletal: nl extremities to inspection, nl gait and stance Extremities: normal pulses Neurological: nl mental status, nl speech, nl strength Skin: No rash or lesions Results Result Diagram: 07/09/1843007/09/18 043 AIDEN EVANS NP Jul 09, 2018 09:57
[2018-07-09] MEDS: SOD CHLORIDE 0.9% 1,000 ML IV SCH (11:10)
[2018-07-09 14:16] VITALS: BP 142/79; PULSE 96; RESP 16
--- NOTE | 2018-07-09 17:56 | PN ---
Date/Time of Note Date/Time of Note DATE: 07/09/18 TIME: 17:53 Assessment/Plan VTE Prophylaxis Risk score (from Ns)>0 risk: 2 SCD applied (from Ns): Yes Pharmacological prophylaxis: LMWH Lines/Catheters IV Catheter Type (from [facility]): Peripheral IV Urinary Cath still in place: No Assessment/Plan Hospital Course SUBJECTIVE: Continues to have incisional pain. Status post NGT decompression. NGT decompression has been discontinued. Started on clear liquids. Complains of burning with urination. OBJECTIVE: Physical Exam General: Adequately build 72 year-old male lying in bed in no apparent distress. HEENT: Normocephalic, atraumatic. Eyes: Anicteric sclerae, conjunctivae clear. ENT: Nasal septum midline, oral mucosa moist. Neck supple. Respiratory: Bilaterally diminished breath sounds. No use of accessory muscles of respiration. No adventitious breath sounds. Cardiovascular: S1, S2 heard. Regular rate and rhythm. Abdomen: Mildly distended. Yue-incisional tenderness. Right lower quadrant drain. Genitourinary: Deferred. Extremities: No cyanosis, no clubbing, no edema. Peripheral pulses palpable. Neurologic: Cranial nerves II through XII grossly intact. The patient is awake, alert, and oriented. Skin: Normal skin turgor. No skin rashes. Labs & Vitals per chart ASSESSMENT & PLAN 72-year-old male with comorbidities including prostate hypertrophy, hypothyroidism, seizure disorder, and dyslipidemia who came to the emergency room with chief complaint of abdominal pain was found to have evidence of cholelithiasis and hyponatremia who was admitted inpatient setting for further treatment and evaluation. 1. Acute cholecystitis with hydrops. -Status post 3 port laparoscopic cholecystectomy and placement of a drain on 07/06/2018. -Continue pain control. -Continue incentive spirometry and frequent ambulation. 2. Postoperative ileus. -The patient n.p.o. -Status post NGT decompression. Started on clear liquids. 3. Leukocytosis. -Etiology unclear. -Started on empiric antimicrobials. -CT scan of the abdomen and pelvis from 07/08/2018 showing bilateral lower lobe consolidation; pneumonia versus atelectasis. 4. Hyponatremia secondary to SIADH. -Continue free water restriction. -Correct sodium levels gradually. -Being followed by nephrology. 5. Acute kidney injury (07/08/2018). -Etiology could include underlying hemodynamics versus infectious process (sepsis). -Use nephrotoxic drugs with caution. -Improving. 6. Seizure disorder. -Continue phenytoin. -Serum phenytoin levels within normal limits. 7. Hypothyroidism. -Continue Synthroid. 8. Dyslipidemia. -Continue fibrates. 9. Prostate hypertrophy. -Continue Flomax. 10. Fluids, electrolytes, and nutrition. -Clear liquids. -Gentle IV hydration with 0.9% NaCl. 11. DVT prophylaxis. -Bilateral SCDs. -Subcutaneous Lovenox 12. Plan. -Continue pain control. -Correct sodium levels slowly. -Encourage frequent ambulation and frequent use of incentive spirometry. -Advancement of diet as per surgery. Plan of care was explained to the patient's family, who was at the bedside. The patient was seen in collaboration with Dr. Montejo. Result Diagram: 07/09/181 07/09/181 Results 24hrs Laboratory Tests Test 07/09/18 04:31 White Blood Count 16.3 H Red Blood Count 4.68 L Hemoglobin 14.7 Hematocrit 41.6 L Mean Corpuscular Volume 88.9 Mean Corpuscular Hemoglobin 31.4 Mean Corpuscular Hemoglobin Concent 35.3 Red Cell Distribution Width 12.9 Platelet Count 206 Mean Platelet Volume 10.8 H Immature Granulocytes % 0.500 H Neutrophils % 79.1 H Lymphocytes % 10.2 L Monocytes % 8.8 Eosinophils % 1.2 Basophils % 0.2 Nucleated Red Blood Cells % 0.0 Immature Granulocytes # 0.080 H Neutrophils # 12.9 H Lymphocytes # 1.7 Monocytes # 1.4 H Eosinophils # 0.2 Basophils # 0.0 Nucleated Red Blood Cells # 0.0 Sodium Level 133 L Potassium Level 3.6 Chloride Level 98 Carbon Dioxide Level 19 L Anion Gap 16 H Blood Urea Nitrogen 18 Creatinine 0.88 Est Glomerular Filtrat Rate mL/min Glucose Level 119 Calcium Level 8.8 Phosphorus Level 2.8 Magnesium Level 2.2 Phenytoin (Dilantin) Level 14.4 Exam/Review of Systems Vital Signs Vitals Vital Signs Date Temp Pulse Resp B/P (MAP) Pulse Ox O2 O2 Flow FiO2 Time Delivery Rate 07/09/18 98.5 96 16 142/79 94 Room Air 14:16 (100) 07/06/18 8.0 18:56 Intake and Output 07/08/18 07/08/18 07/09/18 1414:59 22:59 06:59 IntakeIntake Total 720 ml 1100 ml 620 ml OutputOutput Total 20 ml 420 ml 400 ml BalanceBalance 700 ml 680 ml 220 ml Medications Medications Current Medications IV Flush (NS 3 ml) 3 ml PER PROTOCOL IV ; Start 07/05/18 at 11:00 Ondansetron HCl (Zofran Inj) 4 mg Q6H PRN IV NAUSEA AND/OR VOMITING Last administered on 07/07/18 13:35; Admin Dose 4 MG; Start 07/05/18 at 11:00 Acetaminophen/ Hydrocodone Bitart ([place] (5/325)) 1 tab Q6H PRN PO MODERATE PAIN LEVEL 4-6 Last administered on 07/08/18 06:02; Admin Dose 1 TAB; Start 07/05/18 at 11:00 Phenytoin (Dilantin) 100 mg Q8 IV Last administered on 07/09/18 13:19; Admin Dose 100 MG; Start 07/05/18 at 22:00 Gemfibrozil (Lopid) 600 mg BID PO Last administered on 07/08/18 08:53; Admin Dose 600 MG; Start 07/06/18 at 21:00 Levothyroxine Sodium (Synthroid) 150 mcg AC BREAKFAST PO Last administered on 07/08/18 06:02; Admin Dose 150 MCG; Start 07/07/18 at 07:00 Morphine Sulfate (morphine) 6 mg Q4H PRN PO SEVERE PAIN LEVEL 7-10 Last administered on 07/08/18 11:26; Admin Dose 6 MG; Start 07/06/18 at 23:30 Acetaminophen (Tylenol Tab) 650 mg Q6H PRN PO MILD PAIN(1-3)OR ELEVATED TEMP Last administered on 07/08/18 08:53; Admin Dose 650 MG; Start 07/07/18 at 07:00 Tamsulosin HCl (Flomax) 0.4 mg HS PO Last administered on 07/07/18 21:11; Admin Dose 0.4 MG; Start 07/07/18 at 21:00 Polyethylene Glycol (Miralax) 17 gm BID PO Last administered on 07/07/18 21:11; Admin Dose 17 GM; Start 07/07/18 at 21:00 Bisacodyl (Dulcolax) 10 mg DAILY PRN PO CONSTIPATION Last administered on 07/07/18at 18:25; Admin Dose 10 MG; Start 07/07/18 at 14:00 Simethicone (Mylicon) 80 mg BID PRN PO DISTENSION/GAS/BLOATING Last administered on 07/08/18at 03:02; Admin Dose 80 MG; Start 07/07/18 at 16:30 Sodium Chloride 1,000 ml @ 75 mls/hr [id number] IV Last administered on 07/08/18at 21:50; Admin Dose 75 MLS/HR; Start 07/08/18 at 08:30 Piperacillin Sod/ Tazobactam Sod 100 ml @ 200 mls/hr Q6 IVPB Last administered on 07/09/18at 13:17; Admin Dose 200 MLS/HR; Start 07/08/18 at 12:00 THERESE LEROY NP Jul 09, 2018 17:56
[2018-07-09 20:01] VITALS: BP 132/80; PULSE 93; RESP 16
[2018-07-09] MEDS: TAMSULOSIN (SR) 0.4 MG CAP PO SCH (21:30)
[2018-07-10] MEDS: SOD CHLORIDE 0.9% 1,000 ML IV SCH ×4 (00:30→19:10)
[2018-07-10 01:48] VITALS: BP 129/73; PULSE 91; RESP 16
[2018-07-10] MEDS: ACETAMINOPHEN 325 MG TAB PO PRN ×2 (04:08→09:04)
[2018-07-10] MEDS: PIPER-TAZO 3.375 GM IV (PMX) 100 ML IVPB SCH ×3 (06:05→17:59)
[2018-07-10] MEDS: LEVOTHYROXINE 150 MCG TAB PO SCH (06:05)
[2018-07-10] MEDS: PHENYTOIN 100 MG INJ IV SCH ×3 (06:05→21:31)
[2018-07-10] MEDS ORDERED: POTASSIUM CHLORIDE (SR) 20 MEQ TAB PO STA (07:41)
[2018-07-10 07:43] VITALS: BP 126/75; PULSE 89; RESP 18
[2018-07-10] MEDS ORDERED: NEUTRA-PHOS 250 MG PACKET PO ONE (08:00)
--- NOTE | 2018-07-10 08:05 | PN ---
DATE: 07/10/2018 SUBJECTIVE: The patient is stable, currently started on . No other events noted. OBJECTIVE: VITAL SIGNS: Blood pressure is 129/73, respirations 16, pulse 91, temperature 99.1. HEENT: Head is normocephalic. NECK: Supple. HEART: Regular rate. LUNGS: Show diminished breath sounds at the base. ABDOMEN: Soft, nontender to palpation without rebound or guarding. EXTREMITIES: Negative for clubbing, cyanosis, no edema. DERMATOLOGIC: No rashes. MUSCULOSKELETAL: No joint effusion. NEUROLOGIC: No change in exam. MEDICATIONS: Reviewed. LABORATORY DATA: Shows sodium 133, potassium 3.3, BUN 13, creatinine 0.58, phosphorus 2.1. White co unt 11.4, hemoglobin 13.4, platelet count is 180. ASSESSMENT AND PLAN: 1. Nonoliguric acute kidney injury with previously normal baseline creatinine. Etiology secondary t o volume depletion. Renal function has improved with IV fluids. At this point, will deescalate IV h ydration as the patient is beginning to tolerate p.o. Monitor closely. 2. Hypernatremia. Etiology is multifactorial secondary to acute kidney injury with possible underly ing syndrome of inappropriate antidiuretic hormone. The patient's sodium levels have stabilized. We will deescalate IV fluids and monitor. 3. Hypokalemia, hypophosphatemia. Will monitor and replete. 4. Acute cholecystitis. The patient is status post laparoscopic cholecystectomy. Continue to monit or. 5. Postop ileus, improving. Continue medical management. Follow up with general surgery. 6. steroids. Continue antibiotic therapy. 7. Seizure disorder. Continue current treatment plan. 8. Dyslipidemia. Continue statin therapy. 9. Hypothyroidism. Continue Synthroid. Dictated By: MICHAEL TROY DO NR/NTS Conf#: [id number] DID#: [id number] CC: OLIVE MCKEON MD; JOSHUA MARSH DO;*EndCC*
[2018-07-10] MEDS: POLYETHYLENE GLYCOL 17 GM PACKET PO SCH ×2 (09:00→21:00)
[2018-07-10] MEDS: GEMFIBROZIL 600 MG TAB PO SCH ×2 (09:04→21:31)
[2018-07-10] MEDS: ENOXAPARIN 40 MG/0.4 ML SYG SC SCH (09:11)
--- NOTE | 2018-07-10 14:28 | PN ---
Date/Time of Note Date/Time of Note DATE: 07/10/18 TIME: 14:26 Assessment/Plan VTE Prophylaxis Risk score (from Ns)>0 risk: 7 SCD applied (from Ns): Yes Pharmacological prophylaxis: LMWH Lines/Catheters IV [facility] Type (from [facility]): Peripheral IV Urinary Cath still in place: No Assessment/Plan Hospital Course SUBJECTIVE: On full liquids. Tolerating full liquids. Ambulated multiple times yesterday. OBJECTIVE: Physical Exam General: Adequately build 72 year-old male lying in bed in no apparent distress. HEENT: Normocephalic, atraumatic. Eyes: Anicteric sclerae, conjunctivae clear. ENT: Nasal septum midline, oral mucosa moist. Neck supple. Respiratory: Bilaterally diminished breath sounds. No use of accessory muscles of respiration. No adventitious breath sounds. Cardiovascular: S1, S2 heard. Regular rate and rhythm. Abdomen: Soft and nondistended. Yue-incisional tenderness. Right lower quadrant drain. Genitourinary: Deferred. Extremities: No cyanosis, no clubbing, no edema. Peripheral pulses palpable. Neurologic: Cranial nerves II through XII grossly intact. The patient is awake, alert, and oriented. Skin: Normal skin turgor. No skin rashes. Labs & Vitals per chart ASSESSMENT & PLAN 72-year-old male with comorbidities including prostate hypertrophy, hypothyroidism, seizure disorder, and dyslipidemia who came to the emergency room with chief complaint of abdominal pain was found to have evidence of cholelithiasis and hyponatremia who was admitted inpatient setting for further treatment and evaluation. 1. Acute cholecystitis with hydrops. -Status post 3 port laparoscopic cholecystectomy and placement of a drain on 07/06/2018. -Continue pain control. -Continue incentive spirometry and frequent ambulation. 2. Postoperative ileus. -The patient n.p.o. -Status post NGT decompression. -Currently on full liquids. 3. Leukocytosis. -Etiology unclear. -Started on empiric antimicrobials. -CT scan of the abdomen and pelvis from 07/08/2018 showing bilateral lower lobe consolidation; pneumonia versus atelectasis. 4. Hyponatremia secondary to SIADH. -Continue free water restriction. -Correct sodium levels gradually. -Being followed by nephrology. 5. Acute kidney injury (07/08/2018). -Etiology could include underlying hemodynamics versus infectious process (sepsis). -Use nephrotoxic drugs with caution. -Improving. 6. Seizure disorder. -Continue phenytoin. -Serum phenytoin levels within normal limits. 7. Hypothyroidism. -Continue Synthroid. 8. Dyslipidemia. -Continue fibrates. 9. Prostate hypertrophy. -Continue Flomax. 10. Fluids, electrolytes, and nutrition. -Full liquids. -Gentle IV hydration with 0.9% NaCl. 11. DVT prophylaxis. -Bilateral SCDs. -Subcutaneous Lovenox 12. Plan. -Continue pain control. -Correct sodium levels slowly. -Encourage frequent ambulation and frequent use of incentive spirometry. -Advancement of diet as per surgery. Plan of care was explained to the patient's family, who was at the bedside. The patient was seen in collaboration with Dr. Montejo. Result Diagram: 07/10/1815 07/10/1815 Results 24hrs Laboratory Tests Test 07/10/18 05:15 White Blood Count 11.4 #H Red Blood Count 4.24 L Hemoglobin 13.4 L Hematocrit 37.9 L Mean Corpuscular Volume 89.4 Mean Corpuscular Hemoglobin 31.6 Mean Corpuscular Hemoglobin Concent 35.4 Red Cell Distribution Width 12.9 Platelet Count 180 Mean Platelet Volume 10.2 Immature Granulocytes % 0.800 H Neutrophils % 70.6 Lymphocytes % 12.7 L Monocytes % 11.9 H Eosinophils % 3.7 Basophils % 0.3 Nucleated Red Blood Cells % 0.0 Immature Granulocytes # 0.090 H Neutrophils # 8.1 H Lymphocytes # 1.4 Monocytes # 1.4 H Eosinophils # 0.4 Basophils # 0.0 Nucleated Red Blood Cells # 0.0 Sodium Level 133 L Potassium Level 3.3 L Chloride Level 99 Carbon Dioxide Level 25 Anion Gap 9 # Blood Urea Nitrogen 13 Creatinine 0.58 L Est Glomerular Filtrat Rate mL/min Glucose Level 116 Calcium Level 8.5 Phosphorus Level 2.1 L Magnesium Level 2.1 Total Bilirubin 0.2 Direct Bilirubin 0.00 Indirect Bilirubin 0.2 Aspartate Amino Transf (AST/SGOT) 17 # Alanine Aminotransferase (ALT/SGPT) 30 Alkaline Phosphatase 61 Total Protein 6.0 #L Albumin 3.1 L Globulin 2.90 Albumin/Globulin Ratio 1.06 Exam/Review of Systems Vital Signs Vitals Vital Signs Date Temp Pulse Resp B/P (MAP) Pulse Ox O2 O2 Flow FiO2 Time Delivery Rate 07/10/18 98.0 89 18 126/75 94 Room Air 07:43 (92) 07/06/18 8.0 18:56 Intake and Output 07/09/18 07/09/18 07/10/18 1515:00 23:00 07:00 IntakeIntake Total 100 ml 1580 ml 575 ml OutputOutput Total 325 ml 420 ml 10 ml BalanceBalance -225 ml 1160 ml 565 ml Medications Medications Current Medications IV Flush (NS 3 ml) 3 ml PER PROTOCOL IV ; Start 07/05/18 at 11:00 Ondansetron HCl (Zofran Inj) 4 mg Q6H PRN IV NAUSEA AND/OR VOMITING Last administered on 07/07/18at 13:35; Admin Dose 4 MG; Start 07/05/18 at 11:00 Acetaminophen/ Hydrocodone Bitart ([place] (5/325)) 1 tab Q6H PRN PO MODERATE PAIN LEVEL 4-6 Last administered on 07/08/18 06:02; Admin Dose 1 TAB; Start 07/05/18 at 11:00 Phenytoin (Dilantin) 100 mg Q8 IV Last administered on 07/10/18 06:05; Admin Dose 100 MG; Start 07/05/18 at 22:00 Gemfibrozil (Lopid) 600 mg BID PO Last administered on 07/10/18 09:04; Admin Dose 600 MG; Start 07/06/18 at 21:00 Levothyroxine Sodium (Synthroid) 150 mcg AC BREAKFAST PO Last administered on 07/10/18 06:05; Admin Dose 150 MCG; Start 07/07/18 at 07:00 Morphine Sulfate (morphine) 6 mg Q4H PRN PO SEVERE PAIN LEVEL 7-10 Last administered on 07/08/18 11:26; Admin Dose 6 MG; Start 07/06/18 at 23:30 Acetaminophen (Tylenol Tab) 650 mg Q6H PRN PO MILD PAIN(1-3)OR ELEVATED TEMP Last administered on 07/10/18 09:04; Admin Dose 650 MG; Start 07/07/18 at 07:00 Tamsulosin HCl (Flomax) 0.4 mg HS PO Last administered on 07/09/18 21:30; Admin Dose 0.4 MG; Start 07/07/18 at 21:00 Polyethylene Glycol (Miralax) 17 gm BID PO Last administered on 07/09/18 21:31; Admin Dose 17 GM; Start 07/07/18 at 21:00 Bisacodyl (Dulcolax) 10 mg DAILY PRN PO CONSTIPATION Last administered on 07/07/18 18:25; Admin Dose 10 MG; Start 07/07/18 at 14:00 Simethicone (Mylicon) 80 mg BID PRN PO DISTENSION/GAS/BLOATING Last administe red on 07/08/18at 03:02; Admin Dose 80 MG; Start 07/07/18 at 16:30 Sodium Chloride 1,000 ml @ 40 mls/hr Q24H IV Last administered on 07/10/18 01:35; Admin Dose 75 MLS/HR; Start 07/08/18 at 08:30 Piperacillin Sod/ Tazobactam Sod 100 ml @ 200 mls/hr Q6 IVPB Last administered on 07/10/18 13:46; Admin Dose 200 MLS/HR; Start 07/08/18 at 12:00 Enoxaparin Sodium (Lovenox) 40 mg DAILY SC Last administered on 07/10/18 09:11; Admin Dose 40 MG; Start 07/10/18 at 09:00 THERESE LEROY NP Jul 10, 2018 14:28
[2018-07-10 14:35] VITALS: BP 131/74; PULSE 92; RESP 18
--- NOTE | 2018-07-10 14:42 | PN ---
Date/Time of Note Date/Time of Note DATE: 07/10/18 TIME: 14:38 Assessment/Plan Lines/Catheters IV Catheter Type (from [facility]): Peripheral IV Benson in Place (from [facility]): No Assessment/Plan Chief Complaint/Hosp Course 1. Symptomatic cholelithiasis, acute cholecystitis with hydrops, abnormal liver color: Status post laparoscopic cholecystectomy and liver wedge biopsy 07/06/18;; CT noted -tolerating liquids> dc ngt, advance diet as maisha. -IS -ambulate -ice pack to abdominal wall -Continue drain 2. Left mid abdominal pain: Much improved -As above -Pain management 3. Leukocytosis: Improved -Trend 3.YARIEL: Improved -Limit nephrotoxic meds -Renally dose meds -Per renal 4.. Hyponatremia: improved -Judicious fluid management and correction> per renal 5. High cholesterol -Nutrition and medication optimization 6. Hypothyroidism: -Med management 7. Seizure disorder: -Med management Thank you. Patient seen and examined in collaboration with Dr. Tevin Kahn. Subjective 24 Hr Interval Summary Feels better. No abdominal pain. Tolerating liquids. WBC improved. No fevers, chills, sob, congested cough, cp, palpitations, núñez, dizziness, n/v/d/dysuria. Exam/Review of Systems Vital Signs Vitals Vital Signs Date Temp Pulse Resp B/P (MAP) Pulse Ox O2 O2 Flow FiO2 Time Delivery Rate 07/10/18 98.0 89 18 126/75 94 Room Air 07:43 (92) 07/06/18 8.0 18:56 Intake and Output 07/09/18 07/09/18 07/10/18 1515:00 23:00 07:00 IntakeIntake Total 100 ml 1580 ml 575 ml OutputOutput Total 325 ml 420 ml 10 ml BalanceBalance -225 ml 1160 ml 565 ml Exam Free Text/Dictation Constitutional: alert, oriented Psych: nl mood/affect; No anxiety Head: normocephalic, atraumatic Eyes: nl conjunctiva, EOMI, nl sclera ENMT: nl external ears & nose, nl lips & teeth, mucosa pink and moist, ngt Neck: supple, non-tender; No jvd Respiratory: normal air movement; No congested cough Cardiovascular: regular rate and rhythm, nl pulses Gastrointestinal: soft, min tender (mart-incisional, incision sites dry without drainage/bruising/discoloration; TIFFANIE drain scant sanguinous drainage) without rebound; nondistended Musculoskeletal: nl extremities to inspection, nl gait and stance Extremities: normal pulses Neurological: nl mental status, nl speech, nl strength Skin: No rash or lesions Results Result Diagram: 07/10/18 0515 07/10/18 0515 AIDEN EVANS NP Jul 10, 2018 14:42
[2018-07-10 20:39] VITALS: BP 126/70; PULSE 81; RESP 18
[2018-07-10] MEDS: TAMSULOSIN (SR) 0.4 MG CAP PO SCH (21:31)
[2018-07-11] MEDS: PIPER-TAZO 3.375 GM IV (PMX) 100 ML IVPB SCH ×2 (00:14→06:03)
[2018-07-11 01:37] VITALS: BP 146/73; PULSE 84; RESP 18
[2018-07-11] MEDS: HYDROCODONE/APAP (5/325) TAB PO PRN ×2 (04:57→13:55)
[2018-07-11] MEDS: PHENAZOPYRIDINE 200 MG TAB PO SCH ×3 (06:03→22:04)
[2018-07-11] MEDS: PHENYTOIN 100 MG INJ IV SCH ×3 (06:03→22:05)
[2018-07-11] MEDS: LEVOTHYROXINE 150 MCG TAB PO SCH (06:06)
[2018-07-11] MEDS ORDERED: POTASSIUM CHLORIDE (SR) 20 MEQ TAB PO STA (07:47)
[2018-07-11 07:58] VITALS: BP 141/73; PULSE 73; RESP 18
[2018-07-11] MEDS ORDERED: NEUTRA-PHOS 250 MG PACKET PO ONE (08:00)
[2018-07-11] MEDS: POLYETHYLENE GLYCOL 17 GM PACKET PO SCH (09:00)
--- NOTE | 2018-07-11 09:03 | PN ---
DATE: 07/11/2018 SUBJECTIVE: The patient is stable. No events overnight. No fevers, chills, nausea, vomiting. OBJECTIVE: VITAL SIGNS: Blood pressure is 146/73, respiration 18, pulse 84, temperature 98.1. HEENT: Head is normocephalic. NECK: Supple. HEART: Regular rate. LUNGS: Show diminished breath sounds at the base. ABDOMEN: Soft, nontender to palpation. No rebound or guarding. EXTREMITIES: Negative for clubbing, cyanosis, no edema. DERMATOLOGIC: No rashes. MUSCULOSKELETAL: No joint effusion. NEUROLOGIC: No change in exam. MEDICATIONS: Reviewed. LABORATORY DATA: Has been reviewed. White count 9.0, hemoglobin 13.1, potassium 3.4, phosphorus 2.0 . Sodium 136, BUN 10, creatinine 0.57. ASSESSMENT AND PLAN: 1. Nonoliguric acute kidney injury with a previously baseline serum creatinine of 0.5 mg/dL. Etiolo gy of YARIEL is secondary to volume depletion. Renal function has improved with IV fluids. Plan is to discontinue IV fluids and monitor. 2. Hyponatremia. Etiology is multifactorial. Sodium levels have improved. Continue to monitor. 3. Hypokalemia, hypophosphatemia. Continue to monitor and replete. 4. Acute cholecystitis. The patient is status post laparoscopic cholecystectomy. Continue medical management. 5. Postoperative ileus, improving. 6. Seizure disorder. Continue medical management. 7. Dyslipidemia. Continue statin therapy. 8. Hypothyroidism. Continue Synthroid. Dictated By: MICHAEL TROY DO NR/NTS Conf#: [id number] DID#: [id number] CC: OLIVE MCKEON MD; JOSHUA MARSH DO;*EndCC*
[2018-07-11] MEDS: GEMFIBROZIL 600 MG TAB PO SCH ×2 (09:04→22:04)
[2018-07-11] MEDS: ENOXAPARIN 40 MG/0.4 ML SYG SC SCH (09:17)
[2018-07-11] MEDS: ACETAMINOPHEN 325 MG TAB PO PRN (09:20)
--- NOTE | 2018-07-11 13:15 | PN ---
Date/Time of Note Date/Time of Note DATE: 07/11/18 TIME: 13:10 Assessment/Plan Lines/Catheters IV Catheter Type (from [facility]): Peripheral IV Benson in Place (from [facility]): No Assessment/Plan Chief Complaint/Hosp Course 1. Symptomatic cholelithiasis, acute cholecystitis with hydrops, abnormal liver color: Status post laparoscopic cholecystectomy and liver wedge biopsy 07/06/18;; CT noted -diet as maisha. -IS -ambulate -ice pack to abdominal wall -Continue drain 2. Diarrhea: -stool studies -dc stool softeners -probiotics 3. Urinary retention: hx of prostate issues -urology consult 3.YARIEL: Improved -Limit nephrotoxic meds -Renally dose meds -Per renal 4.. Hyponatremia: improved -Judicious fluid management and correction> per renal 5. High cholesterol -Nutrition and medication optimization 6. Hypothyroidism: -Med management 7. Seizure disorder: -Med management 8. Left mid abdominal pain: Much improved -As above -Pain management Thank you. Patient seen and examined in collaboration with Dr. Tevin Kahn. Subjective 24 Hr Interval Summary NGT out. Tolerating diet. Diarrhea. Urinary retention with 700+ml bladder scan per nursing. Pelvic discomfort. No fevers, chills, sob, congested cough, cp, palpitations, núñez, dizziness, n/v/dysuria. Exam/Review of Systems Vital Signs Vitals Vital Signs Date Temp Pulse Resp B/P (MAP) Pulse Ox O2 O2 Flow FiO2 Time Delivery Rate 07/11/18 97.8 73 18 141/73 94 Room Air 07:58 (95) Intake and Output 07/10/18 07/10/18 07/11/18 1515:00 23:00 07:00 IntakeIntake Total 1200 ml 1340 ml 580 ml OutputOutput Total 55 ml 20 ml BalanceBalance 1200 ml 1285 ml 560 ml Exam Free Text/Dictation Constitutional: alert, oriented Psych: nl mood/affect; No anxiety Head: normocephalic, atraumatic Eyes: nl conjunctiva, EOMI, nl sclera ENMT: nl external ears & nose, nl lips & teeth, mucosa pink and moist Neck: supple, non-tender; No jvd Respiratory: normal air movement; No congested cough Cardiovascular: regular rate and rhythm, nl pulses Gastrointestinal: soft, min tender (mart-incisional, incision sites dry without drainage/bruising/discoloration; TIFFANIE drain serosanguinous drainage) without rebound; nondistended Musculoskeletal: nl extremities to inspection, nl gait and stance Extremities: normal pulses Neurological: nl mental status, nl speech, nl strength Skin: No rash or lesions Results Result Diagram: 07/11/187 07/11/18 0427 AIDEN EVANS NP Jul 11, 2018 13:15
--- NOTE | 2018-07-11 13:32 | PN ---
Date/Time of Note Date/Time of Note DATE: 07/11/18 TIME: 13:28 Assessment/Plan VTE Prophylaxis Risk score (from Nsg)>0 risk: 5 SCD applied (from Nsg): Yes Pharmacological prophylaxis: LMWH Lines/Catheters IV Catheter Type (from Nrs): Peripheral IV Urinary Cath still in place: No Assessment/Plan Hospital Course SUBJECTIVE: Tolerating regular consistency diet. Having multiple loose bowel movements. Having trouble urinating. OBJECTIVE: Physical Exam General: Adequately build 72 year-old male lying in bed in no apparent distress. HEENT: Normocephalic, atraumatic. Eyes: Anicteric sclerae, conjunctivae clear. ENT: Nasal septum midline, oral mucosa moist. Neck supple. Respiratory: Bilaterally diminished breath sounds. No use of accessory muscles of respiration. No adventitious breath sounds. Cardiovascular: S1, S2 heard. Regular rate and rhythm. Abdomen: Soft and nondistended. Yue-incisional tenderness. Genitourinary: Deferred. Extremities: No cyanosis, no clubbing, no edema. Peripheral pulses palpable. Neurologic: Cranial nerves II through XII grossly intact. The patient is awake, alert, and oriented. Skin: Normal skin turgor. No skin rashes. Labs & Vitals per chart ASSESSMENT & PLAN 72-year-old male with comorbidities including prostate hypertrophy, hypothyroidism, seizure disorder, and dyslipidemia who came to the emergency room with chief complaint of abdominal pain was found to have evidence of cholelithiasis and hyponatremia who was admitted inpatient setting for further treatment and evaluation. 1. Acute cholecystitis with hydrops. -Status post 3 port laparoscopic cholecystectomy and placement of a drain on 07/06/2018. -Continue pain control. -Continue incentive spirometry and frequent ambulation. 2. Postoperative ileus. -The patient n.p.o. -Status post NGT decompression. -Currently on a regular diet. 3. Leukocytosis. -Etiology unclear. -Was started on empiric antimicrobials. -CT scan of the abdomen and pelvis from 07/08/2018 showing bilateral lower lobe consolidation; pneumonia versus atelectasis. -Resolved. Will discontinue antibiotics. 4. Hyponatremia secondary to SIADH. -Resolved. -Being followed by nephrology. 5. Acute kidney injury (07/08/2018). -Etiology could include underlying hemodynamics versus infectious process (sepsis). -Use nephrotoxic drugs with caution. -Resolved. 6. Seizure disorder. -Continue phenytoin. -Serum phenytoin levels within normal limits. 7. Hypothyroidism. -Continue Synthroid. 8. Dyslipidemia. -Continue fibrates. 9. Prostate hypertrophy. -Continue Flomax. 10. Urinary retention on 07/11/2018. -Increased the dose of Flomax. -Urology consult obtained. 11. Fluids, electrolytes, and nutrition. -Regular diet 12. DVT prophylaxis. -Bilateral SCDs. -Subcutaneous Lovenox 13. Plan. -Continue pain control. -Encourage frequent ambulation and frequent use of incentive spirometry. -Obtain urology evaluation. -DC stool softeners. -Add probiotics. Plan of care was explained to the patient's family, who was at the bedside. The patient was seen in collaboration with Dr. Montejo. Result Diagram: 07/11/18 0427 07/11/18 0427 Results 24hrs Laboratory Tests Test 07/11/18 04:27 07/11/18 06:10 White Blood Count 9.0 # Red Blood Count 4.15 L Hemoglobin 13.1 L Hematocrit 37.2 L Mean Corpuscular Volume 89.6 Mean Corpuscular Hemoglobin 31.6 Mean Corpuscular Hemoglobin Concent 35.2 Red Cell Distribution Width 12.8 Platelet Count 195 Mean Platelet Volume 9.9 Immature Granulocytes % 0.800 H Neutrophils % 57.1 Lymphocytes % 25.2 Monocytes % 12.1 H Eosinophils % 4.5 Basophils % 0.3 Nucleated Red Blood Cells % 0.0 Immature Granulocytes # 0.070 H Neutrophils # 5.1 Lymphocytes # 2.3 Monocytes # 1.1 H Eosinophils # 0.4 Basophils # 0.0 Nucleated Red Blood Cells # 0.0 Sodium Level 136 Potassium Level 3.4 L Chloride Level 102 Carbon Dioxide Level 26 Anion Gap 8 Blood Urea Nitrogen 10 Creatinine 0.57 L Est Glomerular Filtrat Rate mL/min Glucose Level 114 Calcium Level 8.3 L Phosphorus Level 2.0 L Magnesium Level 2.0 Total Bilirubin 0.2 Direct Bilirubin 0.00 Indirect Bilirubin 0.2 Aspartate Amino Transf (AST/SGOT) 21 Alanine Aminotransferase (ALT/SGPT) 22 Alkaline Phosphatase 63 Total Protein 6.5 Albumin 3.3 Globulin 3.20 Albumin/Globulin Ratio 1.03 Urine Color YELLOW Urine Clarity CLOUDY A Urine pH 5.0 Urine Specific [place] 1.027 Urine Ketones TRACE A Urine Nitrite NEGATIVE Urine Bilirubin NEGATIVE Urine Urobilinogen NEGATIVE Urine Leukocyte Esterase NEGATIVE Urine Microscopic RBC 10 H Urine Microscopic WBC 9 H Urine Hemoglobin 1+ H Urine Glucose NEGATIVE Urine Total Protein 1+ H Exam/Review of Systems Vital Signs Vitals Vital Signs Date Temp Pulse Resp B/P (MAP) Pulse Ox O2 O2 Flow FiO2 Time Delivery Rate 07/11/18 97.8 73 18 141/73 94 Room Air 07:58 (95) Intake and Output 07/10/18 07/10/18 07/11/18 1414:59 22:59 06:59 IntakeIntake Total 1200 ml 1340 ml 580 ml OutputOutput Total 55 ml 20 ml BalanceBalance 1200 ml 1285 ml 560 ml Medications Medications Current Medications IV Flush (NS 3 ml) 3 ml PER PROTOCOL IV ; Start 07/05/18 at 11:00 Ondansetron HCl (Zofran Inj) 4 mg Q6H PRN IV NAUSEA AND/OR VOMITING Last administered on 07/07/18at 13:35; Admin Dose 4 MG; Start 07/05/18 at 11:00 Acetaminophen/ Hydrocodone Bitart ([place] (5/325)) 1 tab Q6H PRN PO MODERATE PAIN LEVEL 4-6 Last administered on 07/11/18at 04:57; Admin Dose 1 TAB; Start 07/05/18 at 11:00 Phenytoin (Dilantin) 100 mg Q8 IV Last administered on 07/11/18at 06:03; Admin Dose 100 MG; Start 07/05/18 at 22:00 Gemfibrozil (Lopid) 600 mg BID PO Last administered on 07/11/18at 09:04; Admin Dose 600 MG; Start 07/06/18 at 21:00 Levothyroxine Sodium (Synthroid) 150 mcg AC BREAKFAST PO Last administered on 07/11/18 06:06; Admin Dose 150 MCG; Start 07/07/18 at 07:00 Morphine Sulfate (morphine) 6 mg Q4H PRN PO SEVERE PAIN LEVEL 7-10 Last administered on 07/08/18at 11:26; Admin Dose 6 MG; Start 07/06/18 at 23:30 Acetaminophen (Tylenol Tab) 650 mg Q6H PRN PO MILD PAIN(1-3)OR ELEVATED TEMP Last administered on 07/11/18at 09:20; Admin Dose 650 MG; Start 07/07/18 at 07:00 Bisacodyl (Dulcolax) 10 mg DAILY PRN PO CONSTIPATION Last administered on 07/07/18at 18:25; Admin Dose 10 MG; Start 07/07/18 at 14:00 Simethicone (Mylicon) 80 mg BID PRN PO DISTENSION/GAS/BLOATING Last administered on 07/08/18at 03:02; Admin Dose 80 MG; Start 07/07/18 at 16:30 Enoxaparin Sodium (Lovenox) 40 mg DAILY SC Last administered on 07/11/18at 09:17; Admin Dose 40 MG; Start 07/10/18 at 09:00 Phenazopyridine HCl (Pyridium) 200 mg TID PO Last administered on 07/11/18at 06:03; Admin Dose 200 MG; Start 07/11/18 at 04:45 Saccharomyces Boulardii (Florastor) 250 mg BID PO ; Start 07/11/18 at 12:30 Tamsulosin HCl (Flomax) 0.4 mg BID PO ; Start 07/11/18 at 13:00 THERESE LEROY NP Jul 11, 2018 13:32
[2018-07-11] MEDS: SACCHAROMYCES BOULARDII 250 MG CAP PO SCH ×2 (13:37→22:04)
[2018-07-11] MEDS: TAMSULOSIN (SR) 0.4 MG CAP PO SCH ×2 (13:37→22:04)
[2018-07-11 14:15] VITALS: BP 156/76; PULSE 80; RESP 18
--- NOTE | 2018-07-11 17:59 | CONS ---
Date/Time of Note Date/Time of Note DATE: 07/11/18 TIME: 17:48 Assessment/Plan Assessment/Plan Hospital Course 72-year-old male with comorbidities including dyslipidemia, seizure disorder, hypothyroidism, and prostatic hypertrophy came to the emergency room because of abdominal pain. The patient was seen at [facility] emergency room on 07/03/2018 because of same complaints and was discharged home. The patient returned back with epigastric pain with radiation to the back. He was found to have acute cholecystitis. He underwent cholecystectomy. Postop he did have an indwelling Benson catheter and when that was removed but he was not able to urinate. The nursing staff try to do straight cath on him and successfully therefore a urological consultation was requested. The patient lives at home with his sister and he usually has nocturia x4. During the day he voids about 5 times. He denies any dysuria and no gross hematuria he states that he urinary stream is strong and he feels he empties his bladder well. He however has undergone transurethral resection of prostate at [facility] 1 year ago. He states there was no cancer in his prostate. I did insert a 16 [place] coud catheter and 650 mL of urine drained. The patient did void a very small amount prior to the catheterization. On the CT scan his prostate is very large and measure over 6 cm in each direction. Recommendation is to keep the Benson catheter in place for 1 or 2 days. If he is going to be discharged home before we remove the catheter he could go home with a Benson catheter and follow-up as an outpatient. Result Diagram: 07/11/18 0427 07/11/18 0427 Results 24hrs Laboratory Tests Test 07/11/18 04:27 07/11/18 06:10 White Blood Count 9.0 # Red Blood Count 4.15 L Hemoglobin 13.1 L Hematocrit 37.2 L Mean Corpuscular Volume 89.6 Mean Corpuscular Hemoglobin 31.6 Mean Corpuscular Hemoglobin Concent 35.2 Red Cell Distribution Width 12.8 Platelet Count 195 Mean Platelet Volume 9.9 Immature Granulocytes % 0.800 H Neutrophils % 57.1 Lymphocytes % 25.2 Monocytes % 12.1 H Eosinophils % 4.5 Basophils % 0.3 Nucleated Red Blood Cells % 0.0 Immature Granulocytes # 0.070 H Neutrophils # 5.1 Lymphocytes # 2.3 Monocytes # 1.1 H Eosinophils # 0.4 Basophils # 0.0 Nucleated Red Blood Cells # 0.0 Sodium Level 136 Potassium Level 3.4 L Chloride Level 102 Carbon Dioxide Level 26 Anion Gap 8 Blood Urea Nitrogen 10 Creatinine 0.57 L Est Glomerular Filtrat Rate mL/min Glucose Level 114 Calcium Level 8.3 L Phosphorus Level 2.0 L Magnesium Level 2.0 Total Bilirubin 0.2 Direct Bilirubin 0.00 Indirect Bilirubin 0.2 Aspartate Amino Transf (AST/SGOT) 21 Alanine Aminotransferase (ALT/SGPT) 22 Alkaline Phosphatase 63 Total Protein 6.5 Albumin 3.3 Globulin 3.20 Albumin/Globulin Ratio 1.03 Urine Color YELLOW Urine Clarity CLOUDY A Urine pH 5.0 Urine Specific [place] 1.027 Urine Ketones TRACE A Urine Nitrite NEGATIVE Urine Bilirubin NEGATIVE Urine Urobilinogen NEGATIVE Urine Leukocyte Esterase NEGATIVE Urine Microscopic RBC 10 H Urine Microscopic WBC 9 H Urine Hemoglobin 1+ H Urine Glucose NEGATIVE Urine Total Protein 1+ H Consultation Date/Type/Reason Admit Date/Time Jul 05, 2018 at 09:55 Date of Consultation: Jul 11, 2018 Type of Consult Urology Reason for Consultation Urinary retention Requesting Provider: OLIVE MCKEON MD Hx of Present Illness 72-year-old male with comorbidities including dyslipidemia, seizure disorder, hypothyroidism, and prostatic hypertrophy came to the emergency room because of abdominal pain. The patient was seen at [facility] emergency room on 07/03/2018 because of same complaints and was discharged home. The patient returned back with epigastric pain with radiation to the back. He was found to have acute cholecystitis. He underwent cholecystectomy. Postop he did have an indwelling Benson catheter and when that was removed but he was not able to urinate. The nursing staff try to do straight cath on him and successfully therefore a urological consultation was requested. The patient lives at home with his sister and he usually has nocturia x4. During the day he voids about 5 times. He denies any dysuria and no gross hematuria he states that he urinary stream is strong and he feels he empties his bladder well. He however has undergone transurethral resection of prostate at [facility] 1 year ago. He states there was no cancer in his prostate. Constitutional: no complaints Eyes: no complaints ENT: no complaints Respiratory: no complaints Cardiovascular: no complaints Gastrointestinal: other (as per HPI) Genitourinary: dysuria, other (As per history of present illness) Musculoskeletal: no complaints Skin: no complaints Neurologic: seizure Endocrine: no complaints Lymphatic: no complaints Psychological: no complaints Immunologic: no complaints Past Medical History Medical History: high cholesterol, hypertension, hypothyroid, other (Prostate hypertrophy, history of seizures) Medications Current Medications IV Flush (NS 3 ml) 3 ml PER PROTOCOL IV ; Start 07/05/18 at 11:00 Ondansetron HCl (Zofran Inj) 4 mg Q6H PRN IV NAUSEA AND/OR VOMITING Last administered on 07/07/18 13:35; Admin Dose 4 MG; Start 07/05/18 at 11:00 Acetaminophen/ Hydrocodone Bitart ([place] (5/325)) 1 tab Q6H PRN PO MODERATE PAIN LEVEL 4-6 Last administered on 07/11/18 13:55; Admin Dose 1 TAB; Start 07/05/18 at 11:00 Phenytoin (Dilantin) 100 mg Q8 IV Last administered on 07/11/18 13:37; Admin Dose 100 MG; Start 07/05/18 at 22:00 Gemfibrozil (Lopid) 600 mg BID PO Last administered on 07/11/18 09:04; Admin Dose 600 MG; Start 07/06/18 at 21:00 Levothyroxine Sodium (Synthroid) 150 mcg AC BREAKFAST PO Last administered on 07/11/18 06:06; Admin Dose 150 MCG; Start 07/07/18 at 07:00 Morphine Sulfate (morphine) 6 mg Q4H PRN PO SEVERE PAIN LEVEL 7-10 Last adm inistered on 07/08/18 11:26; Admin Dose 6 MG; Start 07/06/18 at 23:30 Acetaminophen (Tylenol Tab) 650 mg Q6H PRN PO MILD PAIN(1-3)OR ELEVATED TEMP Last administered on 07/11/18 09:20; Admin Dose 650 MG; Start 07/07/18 at 07:00 Bisacodyl (Dulcolax) 10 mg DAILY PRN PO CONSTIPATION Last administered on 07/07/18 18:25; Admin Dose 10 MG; Start 07/07/18 at 14:00 Simethicone (Mylicon) 80 mg BID PRN PO DISTENSION/GAS/BLOATING Last administered on 1/10/19at 03:02; Admin Dose 80 MG; Start 07/07/18 at 16:30 Enoxaparin Sodium (Lovenox) 40 mg DAILY SC Last administered on 07/11/18at 09:17; Admin Dose 40 MG; Start 07/10/18 at 09:00 Phenazopyridine HCl (Pyridium) 200 mg TID PO Last administered on 07/11/18at 13:37; Admin Dose 200 MG; Start 07/11/18 at 04:45 Saccharomyces Boulardii (Florastor) 250 mg BID PO Last administered on 07/11/18at 13:37; Admin Dose 250 MG; Start 07/11/18 at 12:30 Tamsulosin HCl (Flomax) 0.4 mg BID PO Last administered on 07/11/18at 13:37; Admin Dose 0.4 MG; Start 07/11/18 at 13:00 Allergies: Coded Allergies: No Known Allergies (Verified Allergy, Unknown, 07/09/13) Past Surgical History Past Surgical Hx: other (Prostate surgery, cholecystectomy) Social History Alcohol Use: none Smoking Status: Never smoker Drug Use: none Exam/Review of Systems Vital Signs Vitals Vital Signs Date Temp Pulse Resp B/P (MAP) Pulse Ox O2 O2 Flow FiO2 Time Delivery Rate 07/11/18 98.0 80 18 156/76 95 Room Air 14:15 (102) Intake and Output 07/10/18 07/10/18 07/11/18 1515:00 23:00 07:00 IntakeIntake Total 1200 ml 1340 ml 580 ml OutputOutput Total 55 ml 20 ml BalanceBalance 1200 ml 1285 ml 560 ml Exam Constitutional: alert, oriented Psych: no complaints Head: normocephalic Eyes: nl conjunctiva ENMT: nl external ears & nose Neck: supple, non-tender Respiratory: normal air movement; No wheezing Cardiovascular: regular rate and rhythm; No jugular venous distention (JVD) Gastrointestinal: soft, other (Tenderness over suprapubic area) Genitourinary - Male: nl penis, nl scrotum, other (Rectal exam: Large and soft prostate) Musculoskeletal: nl extremities to inspection Extremities: No calf tenderness Neurological: nl mental status Skin: nl turgor Medications Medications Current Medications IV Flush (NS 3 ml) 3 ml PER PROTOCOL IV ; Start 07/05/18 at 11:00 Ondansetron HCl (Zofran Inj) 4 mg Q6H PRN IV NAUSEA AND/OR VOMITING Last administered on 07/07/18 13:35; Admin Dose 4 MG; Start 07/05/18 at 11:00 Acetaminophen/ Hydrocodone Bitart ([place] (5/325)) 1 tab Q6H PRN PO MODERATE PAIN LEVEL 4-6 Last administered on 07/11/18 13:55; Admin Dose 1 TAB; Start 07/05/18 at 11:00 Phenytoin (Dilantin) 100 mg Q8 IV Last administered on 07/11/18 13:37; Admin Dose 100 MG; Start 07/05/18 at 22:00 Gemfibrozil (Lopid) 600 mg BID PO Last administered on 07/11/18 09:04; Admin Dose 600 MG; Start 07/06/18 at 21:00 Levothyroxine Sodium (Synthroid) 150 mcg AC BREAKFAST PO Last administered on 07/11/18 06:06; Admin Dose 150 MCG; Start 07/07/18 at 07:00 Morphine Sulfate (morphine) 6 mg Q4H PRN PO SEVERE PAIN LEVEL 7-10 Last administered on 07/08/18 11:26; Admin Dose 6 MG; Start 07/06/18 at 23:30 Acetaminophen (Tylenol Tab) 650 mg Q6H PRN PO MILD PAIN(1-3)OR ELEVATED TEMP Last administered on 07/11/18 09:20; Admin Dose 650 MG; Start 07/07/18 at 07:00 Bisacodyl (Dulcolax) 10 mg DAILY PRN PO CONSTIPATION Last administered on 07/07/18 18:25; Admin Dose 10 MG; Start 07/07/18 at 14:00 Simethicone (Mylicon) 80 mg BID PRN PO DISTENSION/GAS/BLOATING Last administered on 07/08/18 03:02; Admin Dose 80 MG; Start 07/07/18 at 16:30 Enoxaparin Sodium (Lovenox) 40 mg DAILY SC Last administered on 07/11/18 09:17; Admin Dose 40 MG; Start 07/10/18 at 09:00 Phenazopyridine HCl (Pyridium) 200 mg TID PO Last administered on 07/11/18 13:37; Admin Dose 200 MG; Start 07/11/18 at 04:45 Saccharomyces Boulardii (Florastor) 250 mg BID PO Last administered on 07/11/18at 13:37; Admin Dose 250 MG; Start 07/11/18 at 12:30 Tamsulosin HCl (Flomax) 0.4 mg BID PO Last administered on 07/11/18at 13:37; Admin Dose 0.4 MG; Start 07/11/18 at 13:[address] scan of the abdomen and pelvis: 1. Status post cholecystectomy. Fluid and air noted within the gallbladder fossa, likely consistent with post fall changes. No definitive focal fluid collection/abscess noted at this time. 2. Percutaneous right-sided surgical drainage catheter noted with distal tip adjacent to the left lobe liver. 3. Subcutaneous air and several foci of intra-abdominal free air, likely consistent with postsurgical changes. 4. Fluid-filled distension of the stomach and multiple dilated fluid-filled loops of small bowel suggestive of postoperative ileus. There may be underlying gastroenteritis. 5. No evidence of bowel obstruction. Contrast material noted within large bowel. The appendix is within normal limits. 6. Prostamegaly. Recommend correlation with PSA levels. 7. Bilateral lower lobe consolidation; pneumonia versus atelectasis and small p leural effusions. MINDI MAN MD Jul 11, 2018 17:59
[2018-07-11 19:23] VITALS: BP 132/71; PULSE 78; RESP 18
[2018-07-12 02:00] VITALS: BP 120/60; PULSE 77; RESP 18
[2018-07-12] MEDS: LEVOTHYROXINE 150 MCG TAB PO SCH (06:22)
[2018-07-12] MEDS: PHENYTOIN 100 MG INJ IV SCH ×2 (06:22→13:14)
[2018-07-12 07:26] VITALS: BP 155/75; PULSE 84; RESP 16
[2018-07-12] MEDS ORDERED: NEUTRA-PHOS 250 MG PACKET PO ONE (08:00)
--- NOTE | 2018-07-12 08:08 | PN ---
DATE: 07/12/2018 SUBJECTIVE: The patient is stable, no events overnight. No fevers, chills, nausea, vomiting. OBJECTIVE: VITAL SIGNS: Blood pressure is 155/75, pulse 84, respirations 16, temperature 98.3. HEENT: Head is normocephalic. NECK: Supple. HEART: Regular rate. LUNGS: Show diminished breath sounds at the base. ABDOMEN: Soft, nontender to palpation without rebound or guarding. EXTREMITIES: Negative for clubbing, cyanosis, no edema. DERMATOLOGIC: No rashes. MUSCULOSKELETAL: No joint effusion. NEUROLOGIC: No change in exam. MEDICATIONS: Reviewed. LABORATORY DATA: Shows sodium 134, potassium 3.6, BUN 5, creatinine 0.44, phosphorus is 2.2. White count 9.1, hemoglobin 12.6, platelet count is 209. ASSESSMENT AND PLAN: 1. Nonoliguric acute kidney injury with previous baseline creatinine of 0.5 mg/dL. Etiology of acut e kidney injury is secondary to volume depletion. Renal function has improved with IV hydration. Co ntinue to monitor. 2. Hypernatremia. Etiology is multifactorial. Sodium levels have improved. Continue to monitor an d limit free water intake. 3. Hypokalemia, hypophosphatemia. Continue to monitor and replete as needed. 4. Acute cholecystitis. The patient is status post laparoscopic cholecystectomy. Continue medical management. 5. Seizure disorder. Continue current treatment plan. 6. Dyslipidemia. Continue statin therapy. 7. Hypothyroidism. Continue Synthroid. 8. Postoperative ileus, improving. Dictated By: MICHAEL TROY DO NR/NTS Conf#: [id number] DID#: [id number] CC: MINDI MAN MD; OLIVE MCKEON MD;*EndCC*
[2018-07-12] MEDS: PHENAZOPYRIDINE 200 MG TAB PO SCH ×2 (09:05→13:10)
[2018-07-12] MEDS: GEMFIBROZIL 600 MG TAB PO SCH (09:05)
[2018-07-12] MEDS: SACCHAROMYCES BOULARDII 250 MG CAP PO SCH (09:06)
[2018-07-12] MEDS: TAMSULOSIN (SR) 0.4 MG CAP PO SCH (09:06)
[2018-07-12] MEDS: ENOXAPARIN 40 MG/0.4 ML SYG SC SCH (09:09)
--- NOTE | 2018-07-12 11:01 | DS ---
Date/Time of Note Date/Time of Note DATE: 07/12/18 TIME: 10:55 Discharge Summary Admission/Discharge Info Admit Date/Time Jul 05, 2018 at 09:55 Discharge Date/Time Patient Condition: Stable Consults S [facility] Procedures Chest x-ray: No acute process HIDA scan IMPRESSION: 1. No definite visualization of the gallbladder up to 70 meters post injection. 2. No evidence of a common bile duct obstruction. Delayed images to follow. .Juany Stewart MD, MD Date Time Pathology: A-Gallbladder B-Liver biopsy CLINICAL: Acute cholelithiasis GROSS EXAMINATION: Received in formalin is a gallbladder that measures 7.5 x 3.2 x 2.9 cm. The serosa is pink to dark red and glistening. The hepatic interface is ewing-brown and finely granular. On the hepatic interface, there is a disrupted area 2.0 cm from the distal tip that extends to the lumen. The lumen contains multiple pale yellow, chong, spherical calculi that measure from less than 0.1 cm in greatest dimension up to 0.4 x 0.3 x 0.2 cm and in aggregate fill the lumen. The mucosa is pink-ewing to dark red and flat. The wall thickness is 0.1-0.2 cm. The cystic duct is 0.4 cm in diameter and 0.6 cm long and contains a calculus that measures 0.6 x 0.4 x 0.4 cm and occludes the lumen. Representatively sampled in cassette A. B-Received in formalin is a wedge resection of ewing-brown hepatic tissue that weighs 1.2 grams and measures 1.5 x 0.8 x 0.4 cm. The capsular surface is ewing-chong, smooth and glistening. Sectioning reveals a lobular, ewing-brown cut surface and no mass is seen. Totally submitted in cassette B. MICROSCOPIC DESCRIPTION: B-Sections reveal a wedge biopsy of liver; the lobular architecture of which is preserved and shows the usual hepatic cords architecture. Multiple portal triads are seen and show mild lymphocytic cell infiltrate. Bile ducts are present and show no epithelial cell damage. Rare, spotty, lobular inflammation composed of small lymphocytes is noted. No cholestasis, steatosis, granuloma, feathery or ballooning degeneration of hepatocytes or Lita body is seen. There is no evidence of malignancy or liver cirrhosis. Special stains with appropriate controls, are reviewed. Trichrome stain demonstrates focal, subcapsular, mild, non-specific portal fibrosis. No periportal septal or pericellular "chicken wire" fibrosis is seen. A reticulin stain demonstrates preserved hepatic cords architecture. Prussian Blue stain demonstrates 2+ iron deposit within hepatocytes. No Alpha-1 antitrypsin inclusions are seen by DiPas stain. MICROSCOPIC DIAGNOSIS: A-Gallbladder, cholecystectomy: -- Chronic cholecystitis with hyalinizing fibrosis of the wall, denuded mucosa and fresh hemorrhage. -- Cholelithiasis, gross only. B-Liver, wedge biopsy: -- Liver with mild lymphocytic cell infiltrate within portal triads and rare spotty lobular inflammation and focal mild non-specific portal fibrosis.. -- Siderosis, moderate. Angelia Fountain M.D. Pathologist Electronically Signed 07/07/2018 CT ABDOMEN AND PELVIS WITHOUT CONTRAST. CLINICAL INDICATION: Abdominal pain status post cholecystectomy. TECHNIQUE: CT scan of the abdomen and pelvis without contrast was performed on a multidetector high-resolution CT scanner. The patient was scanned without intravenous contrast. Coronal and sagittal reformatted images were obtained fr om the axial source images. Images were reviewed on a high-resolution PACS workstation. The total exam CTDI equals 10.9 mGy and the total exam DLP equals 671.6 mGy-cm. One or more of the following dose reduction techniques were used: Automated exposure control. Adjustment of the mA and/or kV according to patient size. Use of iterative reconstruction technique. DICOM images are available COMPARISON: None FINDINGS: CT abdomen: Bilateral lower lobe atelectasis and small bilateral pleural effusions. Heart size is enlarged. There is mild pericardial effusion. Hepatic morphology is within normal limits. No gross contour deforming masses. Status post cholecystectomy. Small amount of fluid and air is noted within the gallbladder fossa, likely consistent with postsurgical changes. A right-sided percutaneous drainage catheter is noted with distal tip adjacent to the a left lobe of the liver. The spleen and pancreas are within normal limits. Both adrenal glands are within normal limits. Both kidneys are in normal anatomic position. No gross renal/ureteric calculi. No evidence of obstructive uropathy. The visualized GI tract demonstrates fluid-filled distension of the stomach. Multiple dilated fluid-filled loops of small bowel are identified. No gross evidence of bowel obstruction. Contrast material noted within large bowel. The appendix is within normal limits. Subcutaneous emphysema is noted. Atherosclerotic calcification aortais identified. There is no significant retroperitoneal lymphadenopathy. CT pelvis: The bladder is distended. Prostate gland is enlarged measuring up to 6.7 cm. The rectosigmoid colon demonstrates stool. No significant free fluid. No pelvic lymphadenopathy. The visualized osseous structures demonstrate multilevel degenerative disc disease of the spine. IMPRESSION: 1. Status post cholecystectomy. Fluid and air noted within the gallbladder fossa, likely consistent with post fall changes. No definitive focal fluid collection/abscess noted at this time. 2. Percutaneous right-sided surgical drainage catheter noted with distal tip adjacent to the left lobe liver. 3. Subcutaneous air and several foci of intra-abdominal free air, likely consistent with postsurgical changes. 4. Fluid-filled distension of the stomach and multiple dilated fluid-filled loops of small bowel suggestive of postoperative ileus. There may be underlying gastroenteritis. 5. No evidence of bowel obstruction. Contrast material noted within large bowel. The appendix is within normal limits. 6. Prostamegaly. Recommend correlation with PSA levels. 7. Bilateral lower lobe consolidation; pneumonia versus atelectasis and small pleural effusions. RPTAT: AAPP CT ABDOMEN AND PELVIS WITHOUT CONTRAST. CLINICAL INDICATION: Abdominal pain status post cholecystectomy. TECHNIQUE: CT scan of the abdomen and pelvis without contrast was performed on a multidetector high-resolution CT scanner. The patient was scanned without intravenous contrast. Coronal and sagittal reformatted images were obtained from the axial source images. Images were reviewed on a high-resolution PACS workstation. The total exam CTDI equals 10.9 mGy and the total exam DLP equals 671.6 mGy-cm. One or more of the following dose reduction techniques were used: Automated exposure control. Adjustment of the mA and/or kV according to patient size. Use of iterative reconstruction technique. DICOM images are available COMPARISON: None FINDINGS: CT abdomen: Bilateral lower lobe atelectasis and small bilateral pleural effusions. Heart size is enlarged. There is mild pericardial effusion. Hepatic morphology is within normal limits. No gross contour deforming masses. Status post cholecystectomy. Small amount of fluid and air is noted within the gallbladder fossa, likely consistent with postsurgical changes. A right-sided percutaneous drainage catheter is noted with distal tip adjacent to the a left lobe of the liver. The spleen and pancreas are within normal limits. Both adrenal glands are within normal limits. Both kidneys are in normal anatomic position. No gross renal/ureteric calculi. No evidence of obstructive uropathy. The visualized GI tract demonstrates fluid-filled distension of the stomach. Multiple dilated fluid-filled loops of small bowel are identified. No gross evidence of bowel obstruction. Contrast material noted within large bowel. The appendix is within normal limits. Subcutaneous emphysema is noted. Atherosclerotic calcification aorta is identified. There is no significant retroperitoneal lymphadenopathy. CT pelvis: The bladder is distended. Prostate gland is enlarged measuring up to 6.7 cm. The rectosigmoid colon demonstrates stool. No significant free fluid. No pelvic lymphadenopathy. The visualized osseous structures demonstrate multilevel degenerative disc disease of the spine. IMPRESSION: 1. Status post cholecystectomy. Fluid and air noted within the gallbladder fossa, likely consistent with post fall changes. No definitive focal fluid collection/abscess noted at this time. 2. Percutaneous right-sided surgical drainage catheter noted with distal tip adjacent to the left lobe liver. 3. Subcutaneous air and several foci of intra-abdominal free air, likely consistent with postsurgical changes. 4. Fluid-filled distension of the stomach and multiple dilated fluid-filled loops of small bowel suggestive of postoperative ileus. There may be underlying gastroenteritis. 5. No evidence of bowel obstruction. Contrast material noted within large bowel. The appendix is within normal limits. 6. Prostamegaly. Recommend correlation with PSA levels. 7. Bilateral lower lobe atelectasis and small pleural effusions. Tex Ojeda, Physician Date Time Hx of Present Illness 72-year-old gentleman admitted with abdominal pain Hospital Course Evaluated managed for acute cholecystitis. Underwent lap uzma under the care of Dr. Kahn. Please see operative report for complete details. Postoperative hospital course has been uncomplicated, patient is tolerating diet pain is controlled and he is stable and fit for discharge. His drain has been removed today. Will need to follow-up with surgery in 1 week and he is aware. Evaluated additionally for urinary retention. Had enlarged prostate. Seen by urology. Has also a history of TURP. We will go home on Flomax and leg bag Benson with follow-up with urology. CM is assisting in home safety/follow-up Acute cholecystitis Chronic seizure disorder Acute renal failure hypovolemia resolved Hyponatremia unknown etiology resolved Chronic BPH Atelectasis Home Meds Reported Medications Gemfibrozil* (Gemfibrozil*) 600 Mg Tablet, 600 MG PO BID, TAB 07/05/18 Levothyroxine Sodium* (Levothyroxine Sodium*) 150 Mcg Tablet, 150 MCG PO AC BREAKFAST 01/09/11 Phenytoin (Phenytoin) 100 Mg/4 Ml Oral.susp, 100 MG PO TID 01/09/11 Discontinued Reported Medications Doxazosin* (CARDURA*) 4 Mg Tablet, 4 MG PO AM 01/09/11 Sulfamethoxazole/Trimethoprim (Smz-Tmp Ds 800-160 Mg Tablet) 1 Tab Tablet, 1 TAB PO AM 01/09/11 Discontinued Scripts Ondansetron (Ondansetron Odt) 4 Mg Tab.rapdis, 4 MG PO Q6H PRN for NAUSEA AND/OR VOMITING, #10 TAB Prov:REBECCA BRITTON MD 07/04/18 Polymyxin B Sulfate-TMP* (Polymyxin B-TMP Eye Drops*) 10 Ml Drops, 1 DROP RIGHT EYE QID for 7 Days, EA Prov:KATHERINE LEYVA PA-C 01/27/16 Cephalexin* (Keflex*) 500 Mg Capsule, 500 MG PO QID for 7 Days, CAP Prov:KATHERINE LEYVA PA-C 01/27/16 Primary Care Provider Not On Staff Doctor Time spent on discharge: > 30 minutes Pending Labs Laboratory Tests Test 07/12/18 05:51 White Blood Count 9.1 10^3/ul (4.8-10.8) Red Blood Count 4.00 10^6/ul (4.70-6.10) Hemoglobin 12.6 g/dl (14.0-18.0) Hematocrit 36.0 % (42.0-52.0) Mean Corpuscular Volume 90.0 fl (82.0-101.0) Mean Corpuscular Hemoglobin 31.5 pg (29.0-33.0) Mean Corpuscular Hemoglobin Concent 35.0 g/dl (32.0-37.0) Red Cell Distribution Width 12.4 % (11.5-14.5) Platelet Count 209 10^3/UL (140-415) Mean Platelet Volume 10.1 fl (7.4-10.4) Immature Granulocytes % 0.800 % (0.001-0.429) Neutrophils % 61.2 % (39.0-77.0) Lymphocytes % 23.1 % (15.0-51.0) Monocytes % 10.9 % (0.0-11.0) Eosinophils % 3.7 % (0.0-7.0) Basophils % 0.3 % (0.0-2.0) Nucleated Red Blood Cells % 0.0 /100WBC (0.0-0.0) Immature Granulocytes # 0.070 10^3/ul (0.0-0.031) Neutrophils # 5.6 10^3/ul (1.6-7.5) Lymphocytes # 2.1 10^3/ul (0.8-2.9) Monocytes # 1.0 10^3/ul (0.3-0.9) Eosinophils # 0.3 10^3/ul (0.0-0.5) Basophils # 0.0 10^3/ul (0.0-0.1) Nucleated Red Blood Cells # 0.0 10^3/ul (0.0-0.0) Sodium Level 134 mmol/L (135-144) Potassium Level 3.6 mmol/L (3.5-5.1) Chloride Level 95 mmol/L (97-110) Carbon Dioxide Level 28 mmol/L (21-31) Anion Gap 11 (5-13) Blood Urea Nitrogen 5 mg/dl (7-20) Creatinine 0.44 mg/dl (0.61-1.24) Est Glomerular Filtrat Rate mL/min mL/min (>60) Glucose Level 95 mg/dl (70-220) Calcium Level 8.0 mg/dl (8.4-10.2) Phosphorus Level 2.2 mg/dl (2.5-4.9) Magnesium Level 1.9 mg/dl (1.7-2.5) MARLO FLOREZ MD Jul 12, 2018 11:01
--- NOTE | 2018-07-12 11:05 | PDOCDIS ---
Discharge Instructions CONDITION [id number] Patient Condition: [id number] Good HOME CARE INSTRUCTIONS: [id number] Special Diet: [id number] regular ACTIVITY: [id number] Activity Restrictions: [id number] Slowly Increase Activity Do not Drive FOLLOW UP/APPOINTMENTS Follow-up Plan Dr Aurelia Kahn & Dr Tucker 1wk MARLO FLOREZ MD Jul 12, 2018 11:05
[2018-07-12] MEDS ORDERED: SIME80TA16 PO (11:08)
[2018-07-12] MEDS ORDERED: SACC250C PO (11:08)
[2018-07-12] MEDS ORDERED: TAMS-14 PO (11:08)
[2018-07-12] MEDS ORDERED: ACET325T33 PO (11:08)
[2018-07-12] MEDS ORDERED: PHEN-538 PO (11:08)
[2018-07-12] MEDS ORDERED: HYDR-3601 PO (11:08)
[2018-07-12] MEDS ORDERED: SENN-36 PO (11:08)
--- NOTE | 2018-07-12 11:11 | PN ---
Date/Time of Note Date/Time of Note DATE: 07/12/18 TIME: 11:07 Assessment/Plan Lines/Catheters IV Catheter Type (from Nrs): Saline Lock Ledbetter in Place (from Nrs): Yes Assessment/Plan Chief Complaint/Hosp Course 1. Symptomatic cholelithiasis, acute cholecystitis with hydrops, abnormal liver color: Status post laparoscopic cholecystectomy and liver wedge biopsy 07/06/18;; CT noted; dc drain -diet as maisha. -IS -ambulate -ice pack to abdominal wall -may be discharged per medical team with f/u in office in 1-2 weeks. Patient to call and make appt 2. Diarrhea: much improved -stool studies -dc stool softeners -probiotics 3. Urinary retention: hx of prostate issues: s/p ledbetter cath insertion -f/u urology 3.YARIEL: Improved -Limit nephrotoxic meds -Renally dose meds -Per renal 4.. Hyponatremia: improved -Judicious fluid management and correction> per renal 5. High cholesterol -Nutrition and medication optimization 6. Hypothyroidism: -Med management 7. Seizure disorder: -Med management 8. Left mid abdominal pain:resolved -As above -Pain management Thank you. Patient seen and examined in collaboration with Dr. Tevin Kahn. Subjective 24 Hr Interval Summary Feels well. S/p ledbetter insertion. No fevers, chills, sob, congested cough, cp, palpitations, núñez, dizziness, n/v/d/dysuria. Tolerating diet. +bowel function. Exam/Review of Systems Vital Signs Vitals Vital Signs Date Temp Pulse Resp B/P (MAP) Pulse Ox O2 O2 Flow FiO2 Time Delivery Rate 07/12/18 98.3 84 16 155/75 92 07:26 (101) 07/12/18 Room Air 02:00 Intake and Output 07/11/18 07/11/18 07/12/18 1515:00 23:00 07:00 IntakeIntake Total 2680 ml 460 ml OutputOutput Total 680 ml BalanceBalance 2680 ml -220 ml Exam Free Text/Dictation Constitutional: alert, oriented Psych: nl mood/affect; No anxiety Head: normocephalic, atraumatic Eyes: nl conjunctiva, EOMI, nl sclera ENMT: nl external ears & nose, nl lips & teeth, mucosa pink and moist Neck: supple, non-tender; No jvd Respiratory: normal air movement; No congested cough Cardiovascular: regular rate and rhythm, nl pulses Gastrointestinal: soft, min tender (mart-incisional, incision sites dry without drainage/bruising/discoloration; TIFFANIE drain serosanguinous drainage) without r ebound; nondistended Musculoskeletal: nl extremities to inspection, nl gait and stance Extremities: normal pulses Neurological: nl mental status, nl speech, nl strength Skin: No rash or lesions Results Result Diagram: 07/12/18 0551 07/12/18 0551 AIDEN EVANS NP Jul 12, 2018 11:11
[2018-07-12] MEDS: ACETAMINOPHEN 325 MG TAB PO PRN (11:53)
[2018-07-12 13:12] VITALS: BP 135/76; PULSE 79; RESP 16
== END 2018-07-12 18:50 | disposition home health service (06) | DRG 418 ==
LOC: E/R 09:03 → 2NE 09:55
PROVIDERS: ADMIT Internal Medicine; ATTEND Internal Medicine
PROC: 0FB04ZX Excision of Liver, Percutaneous Endoscopic Approach, Diagnostic (ICD-10-PCS; 2018-07-06)
PROC: 0FT44ZZ Resection of Gallbladder, Percutaneous Endoscopic Approach (ICD-10-PCS; principal; 2018-07-06 16:00)
DX: K80.00 Calculus of gallbladder with acute cholecystitis without obstruction (principal); E22.2 Syndrome of inappropriate secretion of antidiuretic hormone; N17.9 Acute kidney failure, unspecified; K56.7 Ileus, unspecified; R65.10 Systemic inflammatory response syndrome (SIRS) of non-infectious origin without acute organ dysfunction; G40.909 Epilepsy, unspecified, not intractable, without status epilepticus; E03.9 Hypothyroidism, unspecified; E78.5 Hyperlipidemia, unspecified; N40.0 Benign prostatic hyperplasia without lower urinary tract symptoms; K76.9 Liver disease, unspecified
CPT/HCPCS: 36415; 71045; 74176; 76705; 78226; 80048; 80053; 80061; 80185; 81001; 81003; 82043; 82533; 83605; 83690; 83735; 83930; 83935; 84100; 84153; 84154; 84155; 84295; 84300; 84439; 84443; 84484; 84560; 85025; 87045; 87086; 88304; 88307; 88313; 93005; 96374; 96375; A4310; A9537; J0690; J1165; J1170; J1650; J2175; J2250; J2270; J2274; J2405; J2543; J2710; J2765; J2795; J7030; J7040; Q9967

== ENCOUNTER 2018-07-15 07:10 | Emergency (ER) | payer MEDICARE, OTHER ==
[~2018-07-15] VITALS: Wt 78.0 kg
[~2018-07-15 07:10] MED LIST changes: +ACET325T33 PO; +GEMF600T8 PO; +HYDR-3601 PO; +PHEN-538 PO; +SACC250C PO; +SENN-36 PO; +SIME80TA16 PO; +TAMS-14 PO
[2018-07-15] MEDS ORDERED: morphine 4 MG/ML VIAL IV STA (07:22)
[2018-07-15] MEDS ORDERED: ONDANSETRON 4 MG INJ IV STA (07:22)
[2018-07-15] MEDS ORDERED: IODIXANOL LOCM 100 ML BTL ONE (07:44)
[2018-07-15] MEDS ORDERED: SOD CHLORIDE 0.9% 100 ML ONE (07:44)
--- NOTE | 2018-07-15 08:17 | ERD ---
ER Documentation Chief Complaint Chief Complaint had uzma 9 days ago has pain at the site HPI This is a 72-year-old male with a history of seizure disorder hypothyroidism hypertension, postop day 10 from laparoscopic cholecystectomy with liver bridge resection biopsy. The patient indicates that for the past 48 hours he has been having worsening pain around the surgical incision site. He has been taking [place] but this has not improved his pain. He had no fevers or shaking or chills. Surgery was performed by Dr. Kahn. The patient indicates he said no fevers no shaking or chills. He has an indwelling Benson catheter and has a history of benign prostatic hypertrophy. The patient was discharged home with a Benson catheter was instructed to follow-up with the urologist Dr. Tucker as he developed postoperative urinary retention. Patient denies any swelling of his lower extremities and also denies any shortness of breath at rest or exertion. He has no chest pain or pressure. He states the abdominal pain is exacerbated whenever he attempts to move. He has been having bowel movements and flatulence with no emesis. ROS All systems reviewed and are negative except as per history of present illness. Medications Home Meds Active Scripts Sennosides* (Senokot*) 8.6 Mg Tablet, 2 TAB PO DAILY PRN for CONSTIPATION for 7 Days, TAB Prov:MARLO FLOREZ MD 07/12/18 Phenazopyridine Hcl* (Pyridium*) 200 Mg Tab, 200 MG PO TID for 4 Days, #15 TAB Prov:MARLO FLOREZ MD 07/12/18 Simethicone (Mi-Acid) 80 Mg Tab.chew, 80 MG PO BID PRN for DISTENSION/GAS/BLOATING for 7 Days, TAB.CHEW otc Prov:MARLO FLOREZ MD 07/12/18 Saccharomyces Boulardii* (Florastor*) 250 Mg Cap, 250 MG PO BID for 7 Days, #14 CAP Prov:MARLO FLOREZ MD 07/12/18 Hydrocodone Bit-Acetaminophen (Hydrocodone Bit-APAP) 5-325MG Tablet, 1 TAB PO Q6H PRN for MODERATE PAIN LEVEL 4-6 for 5 Days, TAB Prov:MARLO FLOREZ MD 07/12/18 Acetaminophen* (Tylenol*) 325 Mg Tablet, 650 MG PO Q6H PRN for MILD PAIN(1-3)OR ELEVATED TEMP for 1 Day, TAB Prov:MARLO FLOREZ MD 07/12/18 Tamsulosin Hcl* (Flomax*) 0.4 Mg Cap.er.24h, 0.4 MG PO BID for 14 Days, #30 CAP Prov:MARLO FLOREZ MD 07/12/18 Reported Medications Gemfibrozil* (Gemfibrozil*) 600 Mg Tablet, 600 MG PO BID, TAB 07/05/18 Levothyroxine Sodium* (Levothyroxine Sodium*) 150 Mcg Tablet, 150 MCG PO AC BREAKFAST 01/09/11 Phenytoin (Phenytoin) 100 Mg/4 Ml Oral.susp, 100 MG PO TID 01/09/11 Allergies Allergies: Coded Allergies: No Known Allergies (Verified Allergy, Unknown, 07/09/13) PMhx/Soc History of Surgery: Yes (surgery for prostate 2 years ago) Anesthesia Reaction: No Hx Neurological Disorder: Yes (seizures--last one one year ago) Hx Respiratory Disorders: No Hx Cardiac Disorders: No Hx Psychiatric Problems: No Hx Miscellaneous Medical Probl: No Hx Alcohol Use: No Hx Substance Use: No Hx Tobacco Use: No Smoking Status: Never smoker Physical Exam Vitals Vital Signs Date Temp Pulse Resp B/P (MAP) Pulse Ox O2 O2 Flow FiO2 Time Delivery Rate 07/15/18 99.7 95 18 134/70 95 07:11 (91) Physical Exam Constitutional:Well-developed. Well-nourished. HEENT:Normocephalic. Atraumatic.Pupils were equal round reactive to light. Moist mucous membranes.No tonsillar exudates. Neck: No nuchal rigidity. No lymphadenopathy. No posterior cervical spine tenderness or step-offs. Respiratory: Not using accessory muscles of respiration.Lungs were clear to auscultation bilaterally. No rhonchi. No rales. No wheezing. Cardiovascular: Regular rate regular rhythm.No murmurs. No rubs were appreciated.S1, S2 normal. Distal pulses are palpable 2+ bilaterally. GI: Abdomen was soft. Surgical incision sites over the abdomen from 3 port laparoscopic cholecystectomy are clean dry and intact with no wound dehiscence. Wound have been opposed with Dermabond and there is no purulent drainage. Mild tenderness around the surgical incision site on the mid abdomen. No surrounding erythremia and no pain out of proportion to physical exam. Non Distended. No pulsatile abdominal masses or bruits. No rebound. No guarding. Bowel sounds were present and normal. Muscle skeletal: Full range of motion of both the upper and lower extremities bilaterally.Normal muscle tone.No assymetrical calf tenderness or swelling. : Indwelling Benson catheter. No testicular swelling or tenderness. No evidence of Darryl's gangrene. Skin: No petechia, no purpura. No lesions on the palms or the soles of the feet. No maculopapular rash. NEURO: Patient was alert, awake, orientated x3.No facial droop. Gait observed and normal with no ataxia.Speech had regular rate and rhythm. No focal neurological deficits. Results 24 hrs Laboratory Tests Test 07/15/18 08:20 White Blood Count Pending Red Blood Count Pending Hemoglobin Pending Hematocrit Pending Mean Corpuscular Volume Pending Mean Corpuscular Hemoglobin Pending Mean Corpuscular Hemoglobin Concent Pending Red Cell Distribution Width Pending Platelet Count Pending Mean Platelet Volume Pending Current Medications Medications Dose Sig/Mari Start Time Status Last (Trade) Ordered Route PRN Stop Time Admin Dose Reason Admin Morphine 4 mg ONCE STAT 07/15/18 DC Sulfate IV 07:22 (morphine) 07/15/18 07:24 Ondansetron 4 mg ONCE STAT 07/15/18 DC HCl (Zofran IV 07:22 Inj) 07/15/18 07:24 IV Flush 10 ml STK-MED 07/15/18 DC 07/15/18 (NS 10 ml) ONCE .ROUTE 07:44 07:49 07/15/18 07:45 Sodium 100 ml @ ud STK-MED 07/15/18 DC 07/15/18 Chloride ONCE .ROUTE 07:44 07:49 07/15/18 07:45 Iodixanol 100 ml STK-MED 07/15/18 DC 07/15/18 (Visipaque ONCE .ROUTE 07:44 07:49 Locm) 07/15/18 07:45 Procedures/MDM This patient presented to the emergency department with abdominal pain and was seen and evaluated by myself. My differential diagnosis included but was not limited to abdominal aortic aneurysm, appendicitis, pancreatitis, perforated peptic ulcer, perforated viscus, Boerhaaves syndrome or visceral pain such as diverticulitis, DKA, esophagitis, hepatitis or bowel obstruction. The patient was placed on a sugar reprocess operator head, continuous pulse oximetry, and IV access was established by nursing staff. The patient received intravenous morphine and Zofran. I obtained a 12-lead EKG tracing to rule out for atypical microinfarction. 12 Lead EKG tracing ordered and reviewed by myself showed: Normal sinus rhythm of 87 bpm and no arrhythmia. WV interval normal. QRS duration normal. No ST segment elevation No ST segment depression. No changes consistent with acute ischemia. I did feel is necessary to obtain a CT scan of the abdomen to rule out for postoperative abscess or small bowel obstruction. The CT scan performed with IV contrast reviewed by myself the radiologist indicate the followin. Status post prior recent cholecystectomy with fluid and air within the gallbladder fossa consistent with postsurgical changes. No abscess demonstrated. Additional decreased intra-abdominal free air consistent postsurgical changes. 2. Status post removal of percutaneous right sided abdominal drainage catheter. Persistent postsurgical changes involving the right upper abdominal wall without abscess. 3. No evidence of gastrointestinal disease. 4. No calcified urinary calculi or obstructive uropathy. 5. Benson catheter within a contracted urinary bladder with nondependent air likely a echogenic. Severe prostatomegaly unchanged. Correlation with PSA levels may be helpful. Due to the patient's prostatomegaly the Benson catheter was not removed as requested by the patient's daughters. They stated they have a post operative appointment with the urologist. There is no evidence of an infectious process. No peritoneal signs on the abdomen. I felt his pain was a result of postoperative pain with no complications. He received IV opiates. His pain is improved. He was instructed to follow up on an outpatient basis with his surgeon and urologist. He was instructed to continue taking [place] as needed. The patient was discharged home in fair condition. They were instructed to return to the emergency department at any time if there was any worsening of their condition. The patient stated they would follow up with their PCP in the next 24-48 hours to initiate a suitable medication regimen under the care of their PCP as well as to allow their PCP to monitor any drug reactions. The patient was discharged home with prescriptions after they gave informed consent to the new medication. They were also fully informed by myself on the adverse effects and adverse drug interactions in order to provide adequate safeguards to prevent possible adverse reactions to medications. Departure Diagnosis: Primary Impression: Postoperative pain Condition: TORRES Davidson MD Jul 15, 2018 08:16
[2018-07-15] MEDS ORDERED: POTASSIUM CHLORIDE (SR) 20 MEQ TAB PO STA (08:55)
[2018-07-15] MEDS: HYDROmorphONE 1 MG/ML SYG IV STA ×2 (09:26→09:36)
[2018-07-15] MEDS: ONDANSETRON 4 MG INJ IV STA ×2 (09:26→09:36)
[2018-07-15] MEDS ORDERED: MELA2.5T PO (09:34)
[2018-07-15] MEDS ORDERED: IBUP800T48 PO (09:34)
[2018-07-15] MEDS ORDERED: ONDA4TAB14 PO (09:44)
[2018-07-15 10:19] VITALS: BP 133/76; PULSE 86; RESP 20
== END 2018-07-15 10:28 | disposition home or self-care (01) ==
LOC: E/R 07:10
DX: G89.18 Other acute postprocedural pain (principal); E03.9 Hypothyroidism, unspecified; I10 Essential (primary) hypertension; R40.2252 Coma scale, best verbal response, oriented, at arrival to emergency department; R40.2362 Coma scale, best motor response, obeys commands, at arrival to emergency department; R40.2142 Coma scale, eyes open, spontaneous, at arrival to emergency department; R10.9 Unspecified abdominal pain
CPT/HCPCS: 74177; 80053; 81001; 82150; 83690; 84484; 85025; 85610; 85730; 87086; 93005; 96374; 96375; 96376; 99285; J1170; J2270; J2405; Q9967

== ENCOUNTER 2018-08-13 10:42 | Observation (INO) | payer MEDICARE, OTHER ==
[2018-08-13] VITALS (34 sets, daily range): BP systolic 113–149; BP diastolic 59–79; PULSE 62–105; RESP 10–25; Ht 166.4 cm; Wt 66.6 kg
[~2018-08-13] VITALS: Ht 166.4 cm; Wt 66.6 kg
--- NOTE | 2018-08-13 09:03 | HPN ---
Date/Time of Note Date/Time of Note DATE: 08/13/18 TIME: 09:03 Interval H&P Admission Note Pt. seen H&P reviewed: No system changes MINDI MAN MD Aug 13, 2018 09:03
[~2018-08-13 10:42] MED LIST changes: +CEFTRIAXONE 1 GM/NS 50 ML IVPB ONE; -CEPH-443 PO; -DOXA4TAB PO; +IBUP800T48 PO; +MELA2.5T PO; -POLY10DR19 RIGHT EYE; -[UNRECOGNIZED DRUG - CODE] PO
[2018-08-13] MEDS ORDERED: CIPR500T4 PO (11:24)
--- NOTE | 2018-08-13 12:10 | PREAC ---
Date/Time of Note Date/Time of Note DATE: 08/13/18 TIME: 12:08 Anesthesia Eval and Record Evaluation Time Pre-Procedure Interview DATE: 08/13/18 TIME: 12:08 Age 73 Sex male NPO: 8 hrs Preoperative diagnosis BPH, Urinary Retention Planned procedure TURP Past Medical History Past Medical History: None Surgery & Anesthesia Issues No known issue Meds Anticoagulation: No Beta Puja within 24 hr: No Reason Beta Puja not given: Pt. not on B-Puja Active Scripts Ondansetron (Ondansetron Odt) 4 Mg Tab.rapdis, 4 MG PO Q6H PRN for NAUSEA AND/OR VOMITING, #20 TAB Prov:TORRES RANKIN MD 07/15/18 Melatonin (Melatonin Chew) 2.5 Mg Tab.chew, 2.5 MG PO HS PRN for INSOMNIA, #20 TAB.CHEW Prov:TORRES RANKIN MD 07/15/18 Ibuprofen* (Motrin*) 800 Mg Tab, 800 MG PO Q6H PRN for PAIN AND OR ELEVATED TEMP, #30 TAB Prov:TORRES RANKIN MD 07/15/18 Sennosides* (Senokot*) 8.6 Mg Tablet, 2 TAB PO DAILY PRN for CONSTIPATION for 7 Days, TAB Prov:MARLO FLOREZ MD 07/12/18 Simethicone (Mi-Acid) 80 Mg Tab.chew, 80 MG PO BID PRN for DISTENSION/GAS/BLOATING for 7 Days, TAB.CHEW otc Prov:MARLO FLOREZ MD 07/12/18 Saccharomyces Boulardii* (Florastor*) 250 Mg Cap, 250 MG PO BID for 7 Days, #14 CAP Prov:MARLO FLOREZ MD 07/12/18 Hydrocodone Bit-Acetaminophen (Hydrocodone Bit-APAP) 5-325MG Tablet, 1 TAB PO Q6H PRN for MODERATE PAIN LEVEL 4-6 for 5 Days, TAB Prov:MARLO FLOREZ MD 07/12/18 Acetaminophen* (Tylenol*) 325 Mg Tablet, 650 MG PO Q6H PRN for MILD PAIN(1-3)OR ELEVATED TEMP for 1 Day, TAB Prov:MARLO FLOREZ MD 07/12/18 Tamsulosin Hcl* (Flomax*) 0.4 Mg Cap.er.24h, 0.4 MG PO BID for 14 Days, #30 CAP Prov:MARLO FLOREZ MD 07/12/18 Reported Medications Ciprofloxacin Hcl* (Ciprofloxacin Hcl*) 500 Mg Tablet, 500 MG PO BID, #14 TAB 08/13/18 Gemfibrozil* (Gemfibrozil*) 600 Mg Tablet, 600 MG PO BID, TAB 07/05/18 Levothyroxine Sodium* (Levothyroxine Sodium*) 150 Mcg Tablet, 150 MCG PO AC BREAKFAST 01/09/11 Phenytoin (Phenytoin) 100 Mg/4 Ml Oral.susp, 100 MG PO TID 01/09/11 Discontinued Scripts Phenazopyridine Hcl* (Pyridium*) 200 Mg Tab, 200 MG PO TID for 4 Days, #15 TAB Prov:MARLO FLOREZ MD 07/12/18 Meds reviewed: Yes Allergies Coded Allergies: No Known Allergies (Verified Allergy, Unknown, 08/13/18) Allergies Reviewed: Yes Labs/Studies Labs Reviewed: Reviewed by anesthesiologist test: N/A Studies: ECG (NSR), CXR (n/a) Pre-procedure Exam Last vitals Vital Signs Date Temp Pulse Resp B/P (MAP) Pulse Ox O2 O2 Flow FiO2 Time Delivery Rate 08/13/18 98.3 78 18 149/69 96 Room Air 11:36 (95) Airway: Adequate mouth opening, Adequate thyromental dist Mallampati: Mallampati II Teeth: Normal Lung: Normal Heart: Normal ASA Physical Status ASA physical status: 2 Emergency: None Planned Anesthetic General/MAC: ETT Planned Pain Management Parenteral pain med Pre-operative Attestations Prior to commencing anesthesia and surgery, the patient was re-evaluated, there was verification of: *The patient's identity *The results of appropriate recent lab work and preoperative vital signs *The above evaluation not changing prior to induction *Anesthetic plan, risk benefits, alternative and complications discussed with patient/family; questions answered; patient/family understands, accepts and wishes to proceed. CARLOS THORNTON MD Aug 13, 2018 12:09
[2018-08-13] MEDS ORDERED: ROCURONIUM 50 MG INJ ONE (12:11)
[2018-08-13] MEDS ORDERED: PROPOFOL 20 ML ONE (12:11)
[2018-08-13] MEDS ORDERED: FENTAnyl 50 MCG/ML VIAL ONE (12:11)
[2018-08-13] MEDS ORDERED: MIDAZOLAM 1 MG/ML 2 ML INJ ONE (12:11)
[2018-08-13] MEDS ORDERED: CEFAZOLIN 1 GM INJ ONE (12:11)
[2018-08-13] MEDS ORDERED: ONDANSETRON 4 MG INJ ONE (12:48)
[2018-08-13] MEDS ORDERED: METOCLOPRAMIDE 10 MG INJ ONE (12:48)
[2018-08-13] MEDS ORDERED: DEXAMETHASONE 4 MG/ML 5 ML INJ ONE (12:48)
[2018-08-13] MEDS ORDERED: PHENYLephrine 10 MG INJ ONE (13:31)
[2018-08-13] MEDS ORDERED: GLYCOPYRROLATE 0.4 MG INJ ONE (14:21)
[2018-08-13] MEDS ORDERED: NEOSTIGMINE 3 MG/3 ML SYRINGE ONE (14:21)
--- NOTE | 2018-08-13 14:54 | PAC ---
Date/Time of Note Date/Time of Note DATE: 08/13/18 TIME: 14:53 Post-Anesthesia Notes Post-Anesthesia Note Last documented vital signs Vital Signs Date Temp Pulse Resp B/P (MAP) Pulse Ox O2 O2 Flow FiO2 Time Delivery Rate 08/13/18 97.9 78 18 149/69 100 face mask 8L 15:02 (95) Activity: WNL Respiratory function: WNL Cardiovascular function: WNL Mental status: Baseline Pain reasonably controlled: Yes Hydration appropriate: Yes Nausea/Vomiting absent: Yes CARLOS THORNTON MD Aug 13, 2018 14:54
--- NOTE | 2018-08-13 15:02 | OPR ---
Date/Time of Note Date/Time of Note DATE: 08/13/18 TIME: 14:58 Operative Report Procedure Date: Aug 13, 2018 Preoperative Diagnosis Benign prostatic hypertrophy and urinary retention Postoperative Diagnosis Same pending pathology report Operation/Procedure Performed Transurethral resection of prostate Surgeon see signature line Machine Cloth Examiner Vonnie Mendoza Anesthesia Type: general Anesthesiologist: CARLOS THORNTON MD Estimated Blood Loss: 200 - 250 ml's Transfusion none Specimen Prostatic tissue Grafts/Implants none Complications none Pt Condition Post Procedure: stable Disposition: PACU Indications Benign prostatic hypertrophy with urinary retention. Procedure Description The patient was brought to the operating room and general anesthesia was induced. Timeout was done, the patient was identified by his name, birthdate and the procedure. The patient was given 1 g of ceftriaxone at the start of the procedure. The Benson catheter that he had was removed. The genital area was then prepped and draped in the usual sterile manner. Cystoscopy was done with a 22 Nepalese cystoscope and it showed prostatic enlargement with obstruction. The bladder was trabeculated. There was no bladder tumors or stones. The cystos cope was then removed and the urethra was dilated with the Dixie dilators up to #30 Nepalese. The 26 Nepalese bipolar resectoscope sheath was then introduced under direct vision through the penile urethra all the way to the bladder. Then the resection of the prostate was started. First the median lobe was resected then the right lateral lobe then the left lateral lobe and finally the anterior lobe as well as apical tissue. All the bleeders were electrocoagulated. All the prostatic chips were evacuated. Good hemostasis was obtained. The ureteral orifices as well as external sphincter were intact and safeguarded during the whole procedure. At the end of the procedure the resectoscope was removed and #24 Nepalese three-way Benson catheter was inserted into the bladder. The balloon was inflated with 60 mL of sterile water. The catheter was connected to a drainage bag and continuous bladder irrigation was started in the operating room with normal saline. The patient was transferred to the recovery room in stable and satisfactory condition. MINDI MAN MD Aug 13, 2018 15:02
[2018-08-13] MEDS ORDERED: HYDROmorphONE 1 MG/5 ML IV SYRINGE IV ONE (15:29)
[2018-08-13] MEDS ORDERED: FENTAnyl 50 MCG/ML VIAL IV PRN ×3 (15:30)
[2018-08-13] MEDS ORDERED: HYDROmorphONE 1 MG/5 ML IV SYRINGE IV PRN ×2 (15:30)
[2018-08-13] MEDS ORDERED: ONDANSETRON 4 MG INJ IV PRN ×2 (15:30→17:00)
[2018-08-13] MEDS: HYDROmorphONE 1 MG/5 ML IV SYRINGE IV PRN ×2 (15:33→15:59)
--- NOTE | 2018-08-13 16:50 | HP ---
Date/Time of Note Date/Time of Note DATE: 08/13/18 TIME: 16:44 Assessment/Plan VTE Prophylaxis Risk score (from Ns)>0 risk: 3 SCD applied (from Ns): Yes Pharmacological prophylaxis: NA/contraindicated Pharm contraindication: surgical contra Lines/Catheters IV Catheter Type (from Nrsg): Peripheral IV Assessment/Plan Hospital Course 1. BPH status post TURP Continue irrigation per urology Follow-up on urology recommendations 2. Seizure disorder Continue home Dilantin 3. Hypothyroidism Continue Synthroid Prophylaxis: SCDs HPI/ROS Admit Date/Time Admit Date/Time Aug 13, 2018 at 14:58 Hx of Present Illness Patient is a 73-year-old male with a history of cholecystitis, ileus, seizure disorder, hypothyroidism, BPH with urinary retention who presents for a TURP with urology. Patient currently has no complaints, denies any pain at this time. ROS Constitutional: no complaints, improved Eyes: no complaints ENT: no complaints Respiratory: no complaints Cardiovascular: no complaints Gastrointestinal: no complaints Genitourinary: no complaints Musculoskeletal: no complaints Skin: no complaints Neurologic: no complaints Endocrine: no complaints Lymphatic: no complaints Psychological: no complaints, nl mood/affect Immunologic: no complaints PMH/Family/Social Past Medical History As per HPI Medications Current Medications Dextrose/Sodium Chloride 1,000 ml @ 50 mls/hr Q20H IV ; Start 08/13/18 at 14:55 Hydromorphone HCl (Dilaudid) 0.2 mg PACU PRN IV MILD PAIN 1-3; Start 08/13/18 at 15:30; Stop 08/13/18 at 23:30 Hydromorphone HCl (Dilaudid) 0.4 mg PACU PRN IV MOD PAIN 4-6 Last administered on 08/13/18at 15:59; Admin Dose 0.4 MG; Start 08/13/18 at 15:30; Stop 08/13/18 at 23:30 Hydromorphone HCl (Dilaudid) 0.6 mg PACU PRN IV SEVERE PAIN 7-10; Start 08/13/18 at 15:30; Stop 08/13/18 at 23:30 Fentanyl (Sublimaze) 25 mcg PACU ORDER PRN IV MILD PAIN 1-3; Start 08/13/18 at 15:30; Stop 08/13/18 at 23:30 Fentanyl (Sublimaze) 50 mcg PACU ORDER PRN IV MOD PAIN 4-6; Start 08/13/18 at 15:30; Stop 08/13/18 at 23:30 Fentanyl (Sublimaze) 75 mcg PACU ORDER PRN IV SEVERE PAIN 7-10; Start 08/13/18 at 15:30; Stop 08/13/18 at 23:30 Ondansetron HCl (Zofran Inj) 4 mg PACU ORDER PRN IV NAUSEA/VOMITING; Start 08/13/18 at 15:30; Stop 08/13/18 at 23:30 Coded Allergies: No Known Allergies (Verified Allergy, Unknown, 08/13/18) Past Surgical History Past Surgical Hx: other Family History Significant Family History: no pertinent family hx Social History Alcohol Use: rarely Smoking Status: Never smoker Drug Use: none Exam/Review of Systems Vital Signs Vitals Vital Signs Date Temp Pulse Resp B/P (MAP) Pulse Ox O2 O2 Flow FiO2 Time Delivery Rate 08/13/18 74 13 126/72 95 Room Air 16:21 (90) 08/13/18 97.9 14:56 Exam Constitutional: alert, oriented Respiratory: clear to auscultation Cardiovascular: regular rate and rhythm Gastrointestinal: soft; No distended Musculoskeletal: nl extremities to inspection RUDDY OJEDA Aug 13, 2018 16:50
[2018-08-13] MEDS ORDERED: SENNA TAB PO PRN (17:00)
[2018-08-13] MEDS ORDERED: NACL 0.9% 3 ML SYG IV SCH ×2 (17:00)
[2018-08-13] MEDS ORDERED: morphine 2 MG INJ IV PRN (17:00)
[2018-08-13] MEDS ORDERED: ACETAMINOPHEN 325 MG TAB PO PRN (17:00)
[2018-08-13] MEDS ORDERED: MELATONIN 5 MG TABLET PO PRN (17:00)
[2018-08-13] MEDS: DEXTROSE 5%-0.45% NACL 1,000 ML IV SCH (17:23)
[2018-08-13] MEDS: HYDROCODONE/APAP (5/325) TAB PO PRN (19:03)
[2018-08-13] MEDS: PHENYTOIN 100 MG CAP PO SCH (20:37)
[2018-08-13] MEDS: GEMFIBROZIL 600 MG TAB PO SCH (20:37)
[2018-08-13] MEDS: SACCHAROMYCES BOULARDII 250 MG CAP PO SCH (20:37)
[2018-08-13] MEDS ORDERED: PHENYTOIN 100 MG PO SCH (21:00)
[2018-08-14] VITALS: BP 105/65; PULSE 101; RESP 18
[2018-08-14] MEDS: HYDROCODONE/APAP (5/325) TAB PO PRN (04:13)
[2018-08-14] MEDS ORDERED: LEVOTHYROXINE 150 MCG TAB PO SCH (07:20)
[2018-08-14 07:56] VITALS: BP 113/55; PULSE 75; RESP 18
[2018-08-14] MEDS: PHENYTOIN 100 MG CAP PO SCH ×2 (09:57→14:06)
[2018-08-14] MEDS: SACCHAROMYCES BOULARDII 250 MG CAP PO SCH (09:57)
[2018-08-14] MEDS: GEMFIBROZIL 600 MG TAB PO SCH (09:57)
[2018-08-14] MEDS: DEXTROSE 5%-0.45% NACL 1,000 ML IV SCH (10:55)
--- NOTE | 2018-08-14 10:55 | PN ---
Date/Time of Note Date/Time of Note DATE: 08/14/18 TIME: 10:53 Assessment/Plan Lines/Catheters IV Catheter Type (from Nrs): Peripheral IV Ledbetter in Place (from Nrs): Yes Cont'd ledbetter catheter reason: other (indicate) (Urological surgery) Assessment/Plan Chief Complaint/Hosp Course Patient is postop transurethral resection of prostate and doing well. He may go home today with the Ledbetter catheter and a leg bag. I will see him in the office on Thursday or Thursday to remove the Ledbetter catheter. Subjective 24 Hr Interval Summary Patient is status post transurethral resection of prostate. He is doing well, has hardly any pain. The continuous irrigation was stopped and the urine remained clear. Constitutional: no complaints Pain Control: well controlled Exam/Review of Systems Vital Signs Vitals Vital Signs Date Temp Pulse Resp B/P (MAP) Pulse Ox O2 O2 Flow FiO2 Time Delivery Rate 08/14/18 98.3 75 18 113/55 100 Room Air 07:56 (74) Intake and Output 08/13/18 08/13/18 08/14/18 1515:00 23:00 07:00 IntakeIntake Total 2000 ml 720 ml 1055 ml OutputOutput Total 10 ml 1100 ml 1500 ml BalanceBalance 1990 ml -380 ml -445 ml Exam Free Text/Dictation The urine is clear without irrigation. Results Result Diagram: 08/14/18 0436 MINDI MAN MD Aug 14, 2018 10:55
--- NOTE | 2018-08-14 11:55 | PDOCDIS ---
Discharge Instructions CONDITION [id number] Patient Condition: [id number] Good HOME CARE INSTRUCTIONS: [id number] Diet Instructions: [id number] Regular ACTIVITY: [id number] Activity Restrictions: [id number] No Restrictions FOLLOW UP/APPOINTMENTS Follow-up Plan Follow-up with Dr. Tucker in clinic on Thursday or Thursday to remove the Benson catheter, follow-up with your PCP in 1-2 weeks RUDDY OJEDA Aug 14, 2018 11:55
--- NOTE | 2018-08-14 11:57 | DS ---
Date/Time of Note Date/Time of Note DATE: 08/14/18 TIME: 11:55 Discharge Summary Admission/Discharge Info Admit Date/Time Aug 13, 2018 at 14:58 Discharge Date/Time August 14, 2018 Discharge Diagnosis 1. BPH status post TURP Status post irrigation per urology Follow-up on urology in clinic 2. Seizure disorder Continue home Dilantin 3. Hypothyroidism Continue Synthroid Patient Condition: Good Hospital Course Patient is a 73-year-old male with a history of cholecystitis, ileus, seizure disorder, hypothyroidism, BPH with urinary retention who was admitted for a TURP with urology. Patient had no reported complications and was status post irrigation. Urology cleared the patient for DC with Benson catheter with plans to remove the Benson in clinic next week. The day of discharge patient's vitals, labs and physical exam are stable. Home Meds Active Scripts Ondansetron (Ondansetron Odt) 4 Mg Tab.rapdis, 4 MG PO Q6H PRN for NAUSEA AND/OR VOMITING, #20 TAB Prov:TORRES RANKIN MD 07/15/18 Melatonin (Melatonin Chew) 2.5 Mg Tab.chew, 2.5 MG PO HS PRN for INSOMNIA, #20 TAB.CHEW Prov:TORRES RANKIN MD 07/15/18 Ibuprofen* (Motrin*) 800 Mg Tab, 800 MG PO Q6H PRN for PAIN AND OR ELEVATED TEMP, #30 TAB Prov:TORRES RANKIN MD 07/15/18 Sennosides* (Senokot*) 8.6 Mg Tablet, 2 TAB PO DAILY PRN for CONSTIPATION for 7 Days, TAB Prov:MARLO FLOREZ MD 07/12/18 Simethicone (Mi-Acid) 80 Mg Tab.chew, 80 MG PO BID PRN for DISTENSION/GAS/BLOATING for 7 Days, TAB.CHEW otc Prov:MARLO FLOREZ MD 07/12/18 Saccharomyces Boulardii* (Florastor*) 250 Mg Cap, 250 MG PO BID for 7 Days, #14 CAP Prov:MARLO FLOREZ MD 07/12/18 Hydrocodone Bit-Acetaminophen (Hydrocodone Bit-APAP) 5-325MG Tablet, 1 TAB PO Q6H PRN for MODERATE PAIN LEVEL 4-6 for 5 Days, TAB Prov:MARLO FLOREZ MD 07/12/18 Acetaminophen* (Tylenol*) 325 Mg Tablet, 650 MG PO Q6H PRN for MILD PAIN(1-3)OR ELEVATED TEMP for 1 Day, TAB Prov:MARLO FLOREZ MD 07/12/18 Tamsulosin Hcl* (Flomax*) 0.4 Mg Cap.er.24h, 0.4 MG PO BID for 14 Days, #30 CAP Prov:MARLO FLOREZ MD 07/12/18 Reported Medications Ciprofloxacin Hcl* (Ciprofloxacin Hcl*) 500 Mg Tablet, 500 MG PO BID, #14 TAB 08/13/18 Gemfibrozil* (Gemfibrozil*) 600 Mg Tablet, 600 MG PO BID, TAB 07/05/18 Levothyroxine Sodium* (Levothyroxine Sodium*) 150 Mcg Tablet, 150 MCG PO AC BREAKFAST 01/09/11 Phenytoin (Phenytoin) 100 Mg/4 Ml Oral.susp, 100 MG PO TID 01/09/11 Discontinued Scripts Phenazopyridine Hcl* (Pyridium*) 200 Mg Tab, 200 MG PO TID for 4 Days, #15 TAB Prov:MARLO FLOREZ MD 07/12/18 Follow-up Plan Follow-up with Dr. Tucker in clinic on Thursday or Thursday to remove the Benson catheter, follow-up with your PCP in 1-2 weeks Primary Care Provider Not On Staff Doctor Time spent on discharge: > 30 minutes RUDDY OJEDA Aug 14, 2018 11:57
== END 2018-08-14 14:38 | disposition home or self-care (01) ==
LOC: SDS 10:42 → REC 14:58 → SDS 14:58 → MS1 16:30
PROVIDERS: ADMIT Urology; ATTEND Urology
DX: N40.1 Benign prostatic hyperplasia with lower urinary tract symptoms (principal); R33.8 Other retention of urine; G40.909 Epilepsy, unspecified, not intractable, without status epilepticus; E03.9 Hypothyroidism, unspecified
CPT/HCPCS: 52601; 83036; 85025; 88305; G0378; J0696; J1100; J1170; J2250; J2405; J2710; J2765; J3010; J7042; J0690

== ENCOUNTER 2019-02-20 09:15 | Emergency (ER) | payer MEDICARE, OTHER ==
[~2019-02-20] VITALS: Ht 167.6 cm; Wt 68.4 kg
[~2019-02-20 09:15] MED LIST changes: +BEN25 PO; -CEFTRIAXONE 1 GM/NS 50 ML IVPB ONE; +CIPR500T4 PO; +DEME150T8 PO; +LEVO125T71 PO; -PHEN-538 PO; +PHEN100C PO; +[UNRECOGNIZED DRUG - CODE] PO
[2019-02-20 09:17] VITALS: Ht 167.6 cm; Wt 68.4 kg
[2019-02-20] MEDS ORDERED: ACETAMINOPHEN 500 MG TAB PO STA (09:41)
[2019-02-20 11:12] VITALS: BP 136/75; PULSE 62; RESP 16
== END 2019-02-20 11:14 | disposition home or self-care (01) ==
LOC: E/R 09:15
DX: R51 Headache (principal); I10 Essential (primary) hypertension; E03.9 Hypothyroidism, unspecified; R40.2142 Coma scale, eyes open, spontaneous, at arrival to emergency department; R40.2252 Coma scale, best verbal response, oriented, at arrival to emergency department; R40.2362 Coma scale, best motor response, obeys commands, at arrival to emergency department
CPT/HCPCS: 70450

== ENCOUNTER 2019-02-25 19:54 | Inpatient (IN) | payer MEDICARE, OTHER ==
[~2019-02-25] VITALS: Ht 172.7 cm; Wt 68.5 kg
[~2019-02-25 19:54] MED LIST changes: -ACET325T33 PO; -CIPR500T4 PO; -HYDR-3601 PO; -IBUP800T48 PO; -LEVO150T7 PO; -MELA2.5T PO; -ONDA4TAB14 PO; -SACC250C PO; -SENN-36 PO; -SIME80TA16 PO; -TAMS-14 PO; -[UNRECOGNIZED DRUG - CODE] PO
[2019-02-25 19:59] VITALS: Ht 172.7 cm; Wt 68.5 kg
[2019-02-25] MEDS ORDERED: SOD CHLORIDE 0.9% 500 ML IV STA (20:14)
[2019-02-25] MEDS ORDERED: ONDANSETRON 4 MG INJ IV PRN (22:00)
[2019-02-25] MEDS ORDERED: BISACODYL (EC) 5 MG TAB PO PRN (22:00)
[2019-02-25] MEDS ORDERED: DOCUSATE SODIUM 100 MG CAP PO PRN (22:00)
[2019-02-25] MEDS ORDERED: ACETAMINOPHEN 325 MG TAB PO PRN ×2 (22:00)
[2019-02-25] MEDS ORDERED: NACL 0.9% 3 ML SYG IV SCH (22:00)
[2019-02-25 22:20] VITALS: BP 159/76; PULSE 62; RESP 20
[2019-02-25] MEDS ORDERED: SOD CHLORIDE 0.9% 1,000 ML IV SCH (22:30)
[2019-02-26 02:36] VITALS: BP 138/75; PULSE 63; RESP 18
[2019-02-26] MEDS ORDERED: SODIUM CHLORIDE 0.45% 500 ML BAG IV* ONE (03:00)
[2019-02-26] MEDS: LEVOTHYROXINE 125 MCG TAB PO SCH (06:20)
[2019-02-26 07:51] VITALS: BP 148/76; PULSE 65
[2019-02-26] MEDS: PHENYTOIN 100 MG CAP PO SCH ×3 (08:51→20:46)
[2019-02-26] MEDS: GEMFIBROZIL 600 MG TAB PO SCH ×2 (08:51→20:46)
[2019-02-26] MEDS ORDERED: PHENYTOIN 100 MG INJ IV ONE (12:00)
[2019-02-26 14:52] VITALS: BP 120/60; PULSE 62; RESP 14
[2019-02-26 20:00] VITALS: BP 125/70; PULSE 69; RESP 18
[2019-02-27 01:36] VITALS: BP 127/63; PULSE 58; RESP 18
[2019-02-27] MEDS: LEVOTHYROXINE 125 MCG TAB PO SCH (06:17)
[2019-02-27 07:31] VITALS: BP 140/70; PULSE 58; RESP 17
[2019-02-27] MEDS: PHENYTOIN 100 MG CAP PO SCH ×3 (09:15→21:06)
[2019-02-27] MEDS: GEMFIBROZIL 600 MG TAB PO SCH ×2 (09:15→21:06)
[2019-02-27 14:36] VITALS: BP 119/59; PULSE 65; RESP 17
[2019-02-27] MEDS: SODIUM CHLORIDE 1 GM TAB PO SCH ×2 (14:49→21:07)
[2019-02-27] MEDS ORDERED: PHENYTOIN 100 MG INJ IV SCH (15:30)
[2019-02-27 18:45] VITALS: BP 139/63; PULSE 67; RESP 17
[2019-02-27] MEDS: ONDANSETRON 4 MG INJ IV PRN (21:56)
[2019-02-28 02:30] VITALS: BP 125/65; PULSE 65; RESP 18
[2019-02-28] MEDS: LEVOTHYROXINE 125 MCG TAB PO SCH (06:39)
[2019-02-28 07:29] VITALS: BP 141/76; PULSE 59; RESP 18
[2019-02-28] MEDS: SODIUM CHLORIDE 1 GM TAB PO SCH ×3 (09:19→21:34)
[2019-02-28] MEDS: GEMFIBROZIL 600 MG TAB PO SCH ×2 (09:19→21:34)
[2019-02-28] MEDS: DEMECLOCYCLINE 150 MG TAB PO SCH ×2 (09:20→21:34)
[2019-02-28] MEDS: PHENYTOIN 100 MG CAP PO SCH ×3 (09:20→21:34)
[2019-02-28] MEDS: ONDANSETRON 4 MG INJ IV PRN (13:41)
[2019-02-28 14:39] VITALS: BP 130/80; PULSE 63; RESP 18
[2019-02-28 20:43] VITALS: BP 135/68; PULSE 70; RESP 18
[2019-03-01 02:25] VITALS: BP 91/54; PULSE 58; RESP 18
[2019-03-01] MEDS: LEVOTHYROXINE 125 MCG TAB PO SCH (06:01)
[2019-03-01 07:20] VITALS: BP 144/67; RESP 19
[2019-03-01 07:45] VITALS: BP 121/62; PULSE 74; RESP 19
[2019-03-01] MEDS: GEMFIBROZIL 600 MG TAB PO SCH (09:16)
[2019-03-01] MEDS: SODIUM CHLORIDE 1 GM TAB PO SCH (09:16)
[2019-03-01] MEDS: DEMECLOCYCLINE 150 MG TAB PO SCH (09:16)
[2019-03-01] MEDS: PHENYTOIN 100 MG CAP PO SCH (09:17)
== END 2019-03-01 11:54 | disposition home or self-care (01) | DRG 645 ==
LOC: E/R 19:54 → MS1 21:31
PROVIDERS: ADMIT Family Medicine; ATTEND Internal Medicine
DX: E22.2 Syndrome of inappropriate secretion of antidiuretic hormone (principal); E86.0 Dehydration; G40.909 Epilepsy, unspecified, not intractable, without status epilepticus; I10 Essential (primary) hypertension; E03.9 Hypothyroidism, unspecified; E78.5 Hyperlipidemia, unspecified
CPT/HCPCS: 36415; 80048; 80053; 80061; 80185; 81001; 83036; 83735; 83930; 83935; 84100; 84295; 84300; 84443; 85025; 97161; 97166; J1165; J2405; J7030; J7040

== ENCOUNTER 2019-03-08 22:17 | Emergency (ER) | payer MEDICARE, OTHER ==
[~2019-03-08] VITALS: Ht 167.6 cm; Wt 66.7 kg
[2019-03-08 22:18] VITALS: Ht 167.6 cm; Wt 66.7 kg
[2019-03-09] MEDS ORDERED: DIPHENHYDRAMINE 50 MG CAP PO ONE
[2019-03-09 00:01] VITALS: BP 153/79; PULSE 66; RESP 18
== END 2019-03-09 00:02 | disposition home or self-care (01) ==
LOC: FTE 22:17
DX: J00 Acute nasopharyngitis [common cold] (principal)
CPT/HCPCS: 99282